=== PATIENT | male | born 1955 | race American Indian/Alaskan Native ===

== ENCOUNTER 2018-11-21 23:55 | Emergency (ER) | payer MEDICAID, OTHER ==
[2018-11-21] MEDS ORDERED: Sodium Chloride 0.9% 1,000 ML IV ONE (23:56)
[2018-11-21] MEDS ORDERED: 50% Dextrose in Water 50 ML Syringe IV ONE (23:56)
[2018-11-22] MEDS ORDERED: Dextrose 5%-0.45% NaCl 1,000 ML IV ONE (02:00)
[2018-11-22] MEDS ORDERED: Phenytoin 100 MG Cap.ER ONE (03:37)
[2018-11-22] MEDS ORDERED: Phenytoin 100 MG Cap.ER PO ONE (03:38)
[2018-11-22] MEDS ORDERED: Acetaminophen 325 MG Tab ONE (03:59)
[2018-11-22] MEDS ORDERED: Acetaminophen 325 MG Tab PO ONE (04:00)
[2018-11-22 11:46] LABS: ANION GAP 12.2; CHLORIDE,CL 104 mmol/L (101-111); SODIUM,NA 137 mmol/L (135-145)
== END 2018-11-22 03:50 ==
LOC: DL.ED 23:55
DX: G40.909 Epilepsy, unspecified, not intractable, without status epilepticus (principal); E11.649 Type 2 diabetes mellitus with hypoglycemia without coma; R89.2 Abnormal level of other drugs, medicaments and biological substances in specimens from other organs, systems and tissues; M54.5 Low back pain; I10 Essential (primary) hypertension; W00.0XXA Fall on same level due to ice and snow, initial encounter
CPT/HCPCS: 36415; 80053; 80185; 80305; 81001; 82962; 83735; 83880; 84484; 85025; 96361; 96374; 99285; G0480; A9270-GY; J7030; J7042; J7060

== ENCOUNTER 2018-11-25 17:12 | Emergency (ER) | payer MEDICAID, OTHER ==
[2018-11-25 17:32] VITALS: BP 163/94
[2018-11-25] MEDS: Sodium Chloride 0.9% 10 ML Syringe FLUSH PRN (17:51)
[2018-11-25 18:13] LABS: CHLORIDE,CL 102 mmol/L (101-111); SODIUM,NA 135 mmol/L (135-145)
--- NOTE | 2018-11-25 18:31 | EDM.PDOC ---
ED HPI GENERAL MEDICAL PROBLEM - General Chief Complaint: Skin Complaint Stated Complaint: RECHECK HAND Time Seen by Provider: 11/25/18 17:14 Source of Information: Reports: Patient History Limitations: Reports: No Limitations - History of Present Illness INITIAL COMMENTS - FREE TEXT/NARRATIVE: patient comes emergency Department today with complaints of an infection to his left hand. The patient a couple weeks ago was in [place] when he got some slivers in his hand. They became quite nfected. He required surgical interventionand washout of this area. He was sent home on antibiotics. He has had multiple recurrence of infection of his left hand since that time. He was seen at the [facility] clinic yesterday and was sent to the emergency department in [place] to see a hand surgeon from [facility] for admission and possible surgery. INstead of going to the ED the patient went to the clinic and when they didn't have an appointment for him he just left and went back home to [place]. Today he contacted the clinic at [facility] again and they just directed him to the ED. he comes to the emergency department because he was directed to due to the infection in his hand. He has no fever no chills. No weakness dizziness lightheadedness. No body aches. - Related Data Allergies Allergy/AdvReac Type Severity Reaction Status Date / Time No Known Allergies Allergy Verified 03/11/18 01:09 Home Meds: Home Meds Aspirin [Adult Low Dose Aspirin EC] 81 mg PO DAILY 10/01/13 [History] atorvaSTATin [Lipitor] 20 mg PO BEDTIME 10/01/13 [History] Nitroglycerin [Nitrostat] 0.4 mg SL ASDIRECTED 04/14/14 [History] Insulin Aspart [Novolog Flexpen] 7 unit SQ TID 01/05/16 [History] Insulin Detemir [Levemir Flextouch] 35 unit SQ BEDTIME 01/05/16 [History] Levofloxacin [Levaquin] 500 mg PO Q24H 01/05/16 [History] Labetalol [Normodyne] 200 mg PO TID #90 tablet 01/06/16 [Rx] Phenytoin 300 mg PO BID 30 Days cap.er 01/06/16 [Rx] Lisinopril 40 mg PO DAILY 01/14/16 [History] Pantoprazole Sodium 40 mg PO DAILY 01/14/16 [History] metFORMIN HCl [Metformin HCl] 500 mg PO DAILY 01/14/16 [History] Past Medical History HEENT History: Reports: None Cardiovascular History: Reports: CAD, High Cholesterol, Hypertension Other Cardiovascular History: patient poor historian. unknown type of cardiac history or why is on medications. states Nitro was given to him to control his seizures Other Respiratory History: patient denies history but has Albuterol inhaler on old med list and state that he still takes it once a day Gastrointestinal History: Reports: Other (See Below) Other Gastrointestinal History: chronic nausea Neurological History: Reports: Seizure Endocrine/Metabolic History: Reports: Diabetes, Type II Other Endocrine/Metabolic History: patient states is a diabetic but takes no medications for this. "they gave me the little jar of nitro" Dermatologic History: Reports: Cellulitis Other Dermatologic History: palm of left hand and cellulitis - Infectious Disease History Other Infectious Disease History: patient is a poor historian - Past Surgical History Cardiovascular Surgical History: Reports: Percutaneous Transluminal Angioplasty Social & Family History - Family History Family Medical History: Noncontributory - Tobacco Use Smoking Status *Q: Never Smoker - Caffeine Use Caffeine Use: Reports: Coffee, Tea - Living Situation & Occupation Living situation: Reports: Single Occupation: Disabled ED ROS GENERAL - Review of Systems Review Of Systems: ROS reveals no pertinent complaints other than HPI. ED EXAM, SKIN/RASH Exam: See Below Exam Limited By: No Limitations General Appearance: Alert, WD/WN, No Apparent Distress Extremities: No: Normal Inspection (nspection of the left hand there is a mild to moderate amount of erythema on the palmar surface f the webbing between the first and second finger that minimally extends past the palmar surface of thesecond metacarpal. The erythema extends distally on the palmar surface of the left index finger. At the MCP joint there is an area of the scab without any drainage. The distal phalange of the left index finger palmar surface there is also lateralscab approximately 2 cm in length without any discharge or drainage.) Course - Vital Signs Last Recorded V/S: Last Vital Signs Temp 36.9 C 11/25/18 17:14 Pulse 65 11/25/18 17:14 Resp 16 11/25/18 17:14 BP 163/94 H 11/25/18 17:14 Pulse Ox 96 11/25/18 17:14 - Orders/Labs/Meds Orders: Active Orders 24 hr Category Date Time Status Peripheral IV Care [RC] . DIRECTED Care 11/25/18 17:36 Active CULTURE BLOOD [BC] Stat Lab 11/25/18 17:44 Received CULTURE BLOOD [BC] Stat Lab 11/25/18 17:48 Received Blood Culture x2 Reflex Set [OM.PC] Stat Oth 11/25/18 17:34 Ordered Peripheral IV Insertion Adult [OM.PC] Stat Oth 11/25/18 17:36 Ordered Labs: Laboratory Tests 11/25/18 11/25/18 11/25/18 Range/Units 17:44 17:44 17:44 WBC 6.3 (5.0-10.0) 10^3/uL RBC 4.69 (4.6-6.2) 10^6/uL Hgb 13.5 L D (14.0-18.0) g/dL Hct 41.8 (40.0-54.0) % MCV 89.1 (80-100) fL MCH 28.8 (27.0-34.0) pg MCHC 32.3 L (33.0-35.0) g/dL Plt Count 251 (150-450) 10^3/uL Neut % (Auto) 43.3 (42.2-75.2) % Lymph % (Auto) 44.3 (20.5-50.1) % [place] % (Auto) 9.8 H (2-8) % Eos % (Auto) 2.4 (1.0-3.0) % Baso % (Auto) 0.2 (0.0-1.0) % Sodium 135 (135-145) mmol/L Potassium 4.0 (3.6-5.0) mmol/L Chloride 102 (101-111) mmol/L Carbon Dioxide 23.0 (21.0-31.0) mmol/L Anion Gap 14.0 BUN 17 (7-18) mg/dL Creatinine 0.8 (0.6-1.3) mg/dL Est Cr Clr Drug Dosing 92.63 mL/min Estimated GFR (MDRD) > 60 BUN/Creatinine Ratio 21.25 Glucose 169 H (74-105) mg/dL Lactic Acid 1.2 (0.5-2.2) mmol/L Calcium 8.2 L (8.4-10.2) mg/dl Total Bilirubin 0.4 (0.2-1.0) mg/dL AST 24 (10-42) IU/L ALT 20 (10-60) IU/L Alkaline Phosphatase 82 (42-121) IU/L C-Reactive Protein (0.0-1.3) mg/dL Total Protein 7.4 (6.7-8.2) g/dl Albumin 3.4 (3.2-5.5) g/dl Globulin 4.0 Albumin/Globulin Ratio 0.85 11/25/18 Range/Units 17:44 WBC (5.0-10.0) 10^3/uL RBC (4.6-6.2) 10^6/uL Hgb (14.0-18.0) g/dL Hct (40.0-54.0) % MCV (80-100) fL MCH (27.0-34.0) pg MCHC (33.0-35.0) g/dL Plt Count (150-450) 10^3/uL Neut % (Auto) (42.2-75.2) % Lymph % (Auto) (20.5-50.1) % [place] % (Auto) (2-8) % Eos % (Auto) (1.0-3.0) % Baso % (Auto) (0.0-1.0) % Sodium (135-145) mmol/L Potassium (3.6-5.0) mmol/L Chloride (101-111) mmol/L Carbon Dioxide (21.0-31.0) mmol/L Anion Gap BUN (7-18) mg/dL Creatinine (0.6-1.3) mg/dL Est Cr Clr Drug Dosing mL/min Estimated GFR (MDRD) BUN/Creatinine Ratio Glucose (74-105) mg/dL Lactic Acid (0.5-2.2) mmol/L Calcium (8.4-10.2) mg/dl Total Bilirubin (0.2-1.0) mg/dL AST (10-42) IU/L ALT (10-60) IU/L Alkaline Phosphatase (42-121) IU/L C-Reactive Protein 0.9 (0.0-1.3) mg/dL Total Protein (6.7-8.2) g/dl Albumin (3.2-5.5) g/dl Globulin Albumin/Globulin Ratio Meds: Medications Discontinued Medications Generic Name Dose Route Start Last Admin Trade Name Natali PRN Reason Stop Dose Admin Sodium Chloride 10 ml 11/25/18 17:36 11/25/18 17:51 Saline Flush FLUSH 10 ml ASDIRECTED PRN Administration Keep Vein Open - Re-Assessments/Exams Free Text/Narrative Re-Assessment/Exam: 11/25/18 21:50 I called and spoke with DR. Whitehead [facility]. HPI ER COURSE findings and concerns were relayed to her. She accepted the patient in transfer at this time. I clearly explained multiple times to the patient that he is to go from the ED her in [place] to the Emergency Department in [place] at [facility] and not to any other clinic or destination. He was understanding of this and his questions answered. Departure - Departure Time of Disposition: 17:55 Disposition: DC/Tfer to [facility] 02 Clinical Impression: Cellulitis Qualifiers: Site of cellulitis: extremity Site of cellulitis of extremity: upper extremity Laterality: left Qualified Code(s): L03.114 - Cellulitis of left upper limb - Discharge Information Referrals: PCP,None [Primary Care Provider] - Forms: ED Department Discharge Additional Instructions: As same as yesterday go to the ED at [facility] for further care and evaluation. - My Orders Last 24 Hours: My Active Orders 11/25/18 17:34 Blood Culture x2 Reflex Set [OM.PC] Stat 11/25/18 17:36 Peripheral IV Care [RC] . DIRECTED Peripheral IV Insertion Adult [OM.PC] Stat 11/25/18 17:44 CULTURE BLOOD [BC] Stat 11/25/18 17:48 CULTURE BLOOD [BC] Stat - Assessment/Plan Last 24 Hours: My Active Orders 11/25/18 17:34 Blood Culture x2 Reflex Set [OM.PC] Stat 11/25/18 17:36 Peripheral IV Care [RC] . DIRECTED Peripheral IV Insertion Adult [OM.PC] Stat 11/25/18 17:44 CULTURE BLOOD [BC] Stat 11/25/18 17:48 CULTURE BLOOD [BC] Stat Assessment:: Cellulitis of the left hand recurrent following fb removal ? retained products. Plan: As same as yesterday go to the ED at [facility] for further care and evaluation.
== END 2018-11-25 18:12 ==
LOC: DL.ED 17:12
DX: L03.114 Cellulitis of left upper limb (principal); E11.9 Type 2 diabetes mellitus without complications; I10 Essential (primary) hypertension; E78.00 Pure hypercholesterolemia, unspecified; Z79.4 Long term (current) use of insulin; Z79.899 Other long term (current) drug therapy; Z79.82 Long term (current) use of aspirin
CPT/HCPCS: 36415; 80053; 83605; 85025; 86140; 87040; 99284

== ENCOUNTER 2019-05-13 15:38 | Emergency (ER) | payer MEDICAID, OTHER ==
[2019-05-13 15:53] VITALS: BP 161/86
--- NOTE | 2019-05-13 16:00 | EDM.PDOC ---
ED HPI GENERAL MEDICAL PROBLEM - General Chief Complaint: Head Injury Stated Complaint: AMBULANCE Time Seen by Provider: 05/13/19 15:50 Source of Information: Reports: Patient History Limitations: Reports: No Limitations - History of Present Illness INITIAL COMMENTS - FREE TEXT/NARRATIVE: This 63 yo male patient reports to the ED due to a ground level fall yesterday. The patient reports he slipped and fell yesterday while at home. The patient was brought to the ED by [facility] with a C-collar in place. The patient reports pain in the back of his head. The patient also reports he started to have chest pain this morning at about 0900. The patient reports his chest pain has been intermittent throughout the day. The patient reports he feels a little confused. The patient denies any loss of consciousness before, during or after the fall. The patient states he has had similar symptoms in the past. The patient reports he took nitro 3 days ago for chest pain, but has not taken any today. Onset: Today (chest pain), Other (Head pain started yesteday after the fall) Location: Reports: Head, Chest Quality: Reports: Other Severity: Moderate Improves with: Reports: None Worsens with: Reports: None Context: Reports: Trauma Associated Symptoms: Reports: No Other Symptoms Left Head Pain Score (Numeric/FACES): 2 - Related Data Allergies Allergy/AdvReac Type Severity Reaction Status Date / Time No Known Allergies Allergy Verified 05/13/19 15:48 Home Meds: Home Meds Aspirin [Adult Low Dose Aspirin EC] 81 mg PO DAILY 10/01/13 [History] atorvaSTATin [Lipitor] 20 mg PO BEDTIME 10/01/13 [History] Nitroglycerin [Nitrostat] 0.4 mg SL ASDIRECTED 04/14/14 [History] Insulin Aspart [Novolog Flexpen] 7 unit SQ TID 01/05/16 [History] Insulin Detemir [Levemir Flextouch] 35 unit SQ BEDTIME 01/05/16 [History] Levofloxacin [Levaquin] 500 mg PO Q24H 01/05/16 [History] Labetalol [Normodyne] 200 mg PO TID #90 tablet 01/06/16 [Rx] Phenytoin 300 mg PO BID 30 Days cap.er 01/06/16 [Rx] Lisinopril 40 mg PO DAILY 01/14/16 [History] Pantoprazole Sodium 40 mg PO DAILY 01/14/16 [History] metFORMIN HCl [Metformin HCl] 500 mg PO DAILY 01/14/16 [History] Past Medical History HEENT History: Reports: None Cardiovascular History: Reports: CAD, High Cholesterol, Hypertension Other Cardiovascular History: patient poor historian. unknown type of cardiac history or why is on medications. states Nitro was given to him to control his seizures Other Respiratory History: patient denies history but has Albuterol inhaler on old med list and state that he still takes it once a day Gastrointestinal History: Reports: Other (See Below) Other Gastrointestinal History: chronic nausea Neurological History: Reports: Seizure Endocrine/Metabolic History: Reports: Diabetes, Type II Other Endocrine/Metabolic History: patient states is a diabetic but takes no medications for this. "they gave me the little jar of nitro" Dermatologic History: Reports: Cellulitis Other Dermatologic History: palm of left hand and cellulitis - Infectious Disease History Other Infectious Disease History: patient is a poor historian - Past Surgical History Cardiovascular Surgical History: Reports: Percutaneous Transluminal Angioplasty Social & Family History - Family History Family Medical History: Noncontributory - Tobacco Use Smoking Status *Q: Never Smoker Second Hand Smoke Exposure: No - Caffeine Use Caffeine Use: Reports: None - Recreational Drug Use Recreational Drug Use: No - Living Situation & Occupation Living situation: Reports: Single Occupation: Disabled ED ROS GENERAL - Review of Systems Review Of Systems: ROS reveals no pertinent complaints other than HPI. ED EXAM, HEAD INJURY - Physical Exam Exam: See Below Exam Limited By: No Limitations General Appearance: Alert, WD/WN, Moderate Distress Head: Scalp Hematoma Nexus Criteria: Posterior, Midline Cervical Tenderness, Evidence of Intoxication , Altered Level of Consciousness, Focal Neurological Deficit, Painful Distraction Injuries Eyes: Bilateral Eye: EOMI, Normal Inspection, PERRL Ears: Normal External Exam, Normal Canal, Hearing Grossly Normal, Normal TMs Nose: Normal Inspection, Normal Mucousa, No Blood Throat/Mouth: Normal Inspection, Normal Lips, Normal Teeth, Normal Gums, Normal Oropharynx, Normal Voice, No Airway Compromise Neck: Non-Tender, Full Range of Motion, Normal Alignment, Normal Inspection Respiratory: No Respiratory Distress, Lungs Clear, Normal Breath Sounds, No Accessory Muscle Use, Chest Non-Tender Cardiovascular: Normal Peripheral Pulses, Regular Rate, Rhythm, No Edema, No Gallop, No JVD, No Murmur, No Rub GI/Abdominal Exam: Normal Bowel Sounds, Soft, Non-Tender, No Organomegaly, No Distention, No Abnormal Bruit, No Mass (Male) Exam: Deferred Rectal (Males) Exam: Deferred Back Exam: Full Range of Motion, Normal Inspection, NT Extremities: Normal Inspection, Normal Range of Motion, Non-Tender, No Pedal Edema, Normal 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 As Tested, No Motor/Sensory Deficits, Alert, Normal Mood/Affect, Oriented x 3 Skin: Normal Color, Warm/Dry - Lidia Coma Score Best Eye Response (Lidia): (4) Open Spontaneously Best Verbal Response (Lidia): (5) Oriented Best Motor Response (Lidia): (6) Obeys Commands Lidia Total: 15 Course - Vital Signs Last Recorded V/S: Last Vital Signs Temp 36.5 C 05/13/19 15:33 Pulse 80 05/13/19 15:33 Resp 14 05/13/19 15:51 BP 161/86 H 05/13/19 15:51 Pulse Ox 99 05/13/19 15:51 - Orders/Labs/Meds Orders: Active Orders 24 hr Category Date Time Status EKG Documentation Completion [RC] URGENT Care 05/13/19 15:38 Active Labs: Laboratory Tests 05/13/19 05/13/19 Range/Units 15:38 15:38 WBC 6.8 (5.0-10.0) 10^3/uL RBC 4.58 L (4.6-6.2) 10^6/uL Hgb 13.3 L (14.0-18.0) g/dL Hct 40.7 (40.0-54.0) % MCV 88.9 (80-100) fL MCH 29.0 (27.0-34.0) pg MCHC 32.7 L (33.0-35.0) g/dL Plt Count 207 (150-450) 10^3/uL Neut % (Auto) 58.2 (42.2-75.2) % Lymph % (Auto) 32.2 (20.5-50.1) % [place] % (Auto) 8.3 H (2-8) % Eos % (Auto) 1.2 (1.0-3.0) % Baso % (Auto) 0.1 (0.0-1.0) % Sodium 136 (135-145) mmol/L Potassium 4.1 (3.6-5.0) mmol/L Chloride 100 L (101-111) mmol/L Carbon Dioxide 25.0 (21.0-31.0) mmol/L Anion Gap 15.1 BUN 20 H (7-18) mg/dL Creatinine 0.9 (0.6-1.3) mg/dL Est Cr Clr Drug Dosing TNP Estimated GFR (MDRD) > 60 BUN/Creatinine Ratio 22.22 Glucose 286 H (74-105) mg/dL Calcium 8.7 (8.4-10.2) mg/dl Total Bilirubin 0.5 (0.2-1.0) mg/dL AST 26 (10-42) IU/L ALT 19 (10-60) IU/L Alkaline Phosphatase 75 (42-121) IU/L Troponin I 0.05 H* (0.00-0.02) ng/ml Total Protein 7.3 (6.7-8.2) g/dl Albumin 3.4 (3.2-5.5) g/dl Globulin 3.9 Albumin/Globulin Ratio 0.87 Meds: Medications Discontinued Medications Generic Name Dose Route Start Last Admin Trade Name Freq PRN Reason Stop Dose Admin Aspirin 324 mg 05/13/19 16:51 05/13/19 16:58 Aspirin PO 05/13/19 16:52 324 mg ONETIME ONE Administration Departure - Departure Time of Disposition: 17:54 Disposition: DC/Tfer to Acute Hospital 02 Condition: Fair Clinical Impression: NSTEMI (non-ST elevated myocardial infarction) Head contusion Qualifiers: Encounter type: initial encounter Contusion of head detail: scalp Qualified Code(s): S00.03XA - Contusion of scalp, initial encounter - Discharge Information *PRESCRIPTION DRUG MONITORING PROGRAM REVIEWED*: Not Applicable *COPY OF PRESCRIPTION DRUG MONITORING REPORT IN PATIENT CHAS: Not Applicable Forms: Interfacility Transfer EMTALA Care Plan Goals: Discussed the history, examination, lab, EKG, CT and x-ray results with Dr. Christianson (ED [facility] in [place]). Dr. Christianson accepted the patient for continued evaluation and management. The patient will be transported by [facility]. - My Orders Last 24 Hours: My Active Orders 05/13/19 15:38 EKG Documentation Completion [RC] URGENT - Assessment/Plan Last 24 Hours: My Active Orders 05/13/19 15:38 EKG Documentation Completion [RC] URGENT
[2019-05-13 16:04] LABS: ANION GAP 15.1; CHLORIDE,CL 100 mmol/L (101-111); SODIUM,NA 136 mmol/L (135-145)
--- NOTE | 2019-05-13 16:34 | CT ---
Clinical history: 63-year-old male injured in ground-level fall. TECHNIQUE: Volume acquisition of data emergency unenhanced CT scan of the cervical spine obtained with patient lying supine on the Siemens multislice scanner [employer], [place]. All data archived in the PACS system for storage, reformatting axial/sagittal/coronal planes and study. Interpretation: 1. No sign of basal skull fracture. Symmetric clear pneumatization of the mastoid sinuses. 2. Dense reactive atlantoaxial sclerosis and signs of chronic lower cervical (C6-7) disc disease. Severe disc disease T1-2. 3. Homogeneous normal bone mineral density and normal height/alignment of the 7 cervical vertebra. 4. No prevertebral soft tissue swelling, signs of acute cervical fracture, spondylolisthesis or jumped locked facet. 5. No foreign bodies. 6. No cervical rib anomalies. Medial clavicles unremarkable. Lung apices clear. CONCLUSION: Lower cervical and upper thoracic disc disease with hypertrophic arthritic changes. No fractures cervical spine.
--- NOTE | 2019-05-13 16:36 | CR ---
Clinical history: 63-year-old obese male injured in ground-level fall. Chest pain. Interpretation: Upright AP portable chest unremarkable and notably unchanged in the interval since 12 Feb 2016 comparison. Chronic enlarged cardiac silhouette without new signs of alveolar edema or dependent effusion. (External ekg monitor tech leads) No lung contusion, pleural effusion, atelectasis or pneumothorax. No new lung mass or hilar lymphadenopathy.
--- NOTE | 2019-05-13 16:42 | CT ---
Clinical history: 63-year-old male injured in ground-level fall (seizure disorder). Scan technique: Volume acquisition of data emergency unenhanced CT scan of the head and brain obtained with patient lying supine on the Siemens multi slice scanner [place], [place]. All data archived in the PACS system for storage, reformatting axial/sagittal/coronal planes and study (bone/brain windows). Comparison exam 22 November 2017. Interpretation: 1. Hyperostosis frontalis interna. Uniformly thick bony calvarium without sign of skull fracture, underlying brain contusion or extracerebral/intracranial epidural or subdural hematoma. Extracranial scalp contusion posterior occipital convexity on the left. 2. No new signs of supratentorial or posterior fossa mass lesion when compared directly to previous images CT scan of the head, November 2017. 3. Mild atrophy. No pathologic calcifications. Symmetric normal-appearing ventricular system. No hydrocephalus. 4. No new focal areas of ischemic infarct or signs of encephalomalacia. 5. No sign of acute intracerebral, intraventricular or subarachnoid bleed. CONCLUSION: No new evidence skull fracture or closed head trauma. Extracranial scalp contusion.
[2019-05-13] MEDS ORDERED: Aspirin 81 MG Tab.Chew PO ONE (16:51)
== END 2019-05-13 18:00 ==
LOC: DL.ED 15:38
DX: S00.03XA Contusion of scalp, initial encounter (principal); I21.4 Non-ST elevation (NSTEMI) myocardial infarction; I10 Essential (primary) hypertension; E11.9 Type 2 diabetes mellitus without complications; E78.00 Pure hypercholesterolemia, unspecified; Z79.82 Long term (current) use of aspirin; Z79.4 Long term (current) use of insulin; Z79.899 Other long term (current) drug therapy; W01.0XXA Fall on same level from slipping, tripping and stumbling without subsequent striking against object, initial encounter
CPT/HCPCS: 36415; 70450; 71045; 72125; 80053; 84484; 85025; 93005; 99285; A9270

== ENCOUNTER 2019-05-18 09:32 | Inpatient (IN) | payer MEDICAID, OTHER ==
[2019-05-18] MEDS ORDERED: Promethazine 25 MG/ML SDV IM PRN (15:55)
[2019-05-18] MEDS ORDERED: Ondansetron 4 MG/2 ML SDV IVPUSH PRN (15:55)
[2019-05-18] MEDS ORDERED: Ibuprofen 600 MG Tab PO PRN (15:55)
[2019-05-18] MEDS ORDERED: Ondansetron 4 MG Tab.DIS PO PRN (15:55)
[2019-05-18] MEDS ORDERED: 50% Dextrose in Water 50 ML Syringe IVPUSH PRN (15:55)
[2019-05-18] MEDS ORDERED: Promethazine 25 MG Tab PO PRN (15:55)
[2019-05-18] MEDS ORDERED: Glucagon,Human Recombinant 1 MG Vial IM PRN (15:55)
[2019-05-18] MEDS ORDERED: Acetaminophen 325 MG Tab PO PRN (15:55)
[2019-05-18] MEDS ORDERED: Bisacodyl 5 MG Tab PO PRN (16:00)
[2019-05-18] MEDS ORDERED: Docusate Sodium 100 MG Cap PO PRN (16:00)
[2019-05-18] MEDS ORDERED: Magnesium Hydroxide 400 MG/5 ML Susp 30 ML Cup PO PRN (16:00)
[2019-05-18] MEDS ORDERED: Polyethylene Glycol 3350 Powder 17 GM Packet PO PRN (16:00)
[2019-05-18] MEDS ORDERED: Nitroglycerin 0.4 MG Tab.SL SL PRN (16:03)
[2019-05-18] MEDS ORDERED: Albuterol 6.7 GM Inhaler INH PRN (16:03)
--- NOTE | 2019-05-18 16:11 | PCM.HP ---
H&P History of Present Illness - General Date of Service: 05/18/19 Admit Problem/Dx: Admission Diagnosis/Problem Admission Diagnosis/Problem Debility Source of Information: Patient, Old Records History Limitations: Reports: No Limitations - History of Present Illness Initial Comments - Free Text/Narative: Mr. Diaz is a 63 y.o male with medical history significant for seizure disorder who used to be on dilantin until recently, DM II, CAD, HTN, HLP, morbid obesity, and non-adherence to medical therapy who was admitted to [facility] for Dilantin toxicity, DIANA, and encephalopathy after he presented with fall. Cardiology was consulted and was deemed not to have ACS. Neurology was consulted and dilantin was discontinued and patient was started on Keppra. His kidney function improved with IVF. He was discharged to Swing bed and is being admitted for such for continued PT/OT and intermediate for debility. Today, patient denies any acute symptoms except weakness. States that he thinks it is due to laying down for long hours during hospitalization. He denies f/c, chest pain, shortness of breath, n/v/d/c, dysuria, or any acute symptoms. He denies tobacco, alcohol, or illicit drug use. - Related Data Allergies/Adverse Reactions: Allergies Allergy/AdvReac Type Severity Reaction Status Date / Time No Known Allergies Allergy Verified 05/18/19 10:22 Home Medications: Home Meds Aspirin [Adult Low Dose Aspirin EC] 81 mg PO DAILY 10/01/13 [History] Nitroglycerin [Nitrostat] 0.4 mg SL .[id number] PRN 04/14/14 [History] metFORMIN HCl [Metformin HCl] 500 mg PO WITHBREAKFAST 01/14/16 [History] Acetaminophen [Acetaminophen Extra Strength] 500 mg PO Q6H PRN 05/18/19 [History ] Albuterol [Proventil HFA] 2 puff INH Q6H PRN 05/18/19 [History] Lisinopril [Zestril] 40 mg PO DAILY 05/18/19 [History] Loratadine 10 mg PO DAILY 05/18/19 [History] Metoprolol Tartrate [Lopressor] 25 mg PO BID 05/18/19 [History] amLODIPine Besylate [Norvasc] 10 mg PO DAILY 05/18/19 [History] hydroCHLOROthiazide [Hydrochlorothiazide] 25 mg PO DAILY 05/18/19 [History] levETIRAcetam [Keppra] 1,000 mg PO BID 05/18/19 [History] Past Medical History HEENT History: Reports: None Cardiovascular History: Reports: CAD, High Cholesterol, Hypertension Other Cardiovascular History: patient poor historian. unknown type of cardiac history or why is on medications. states Nitro was given to him to control his seizures Other Respiratory History: patient denies history but has Albuterol inhaler on old med list and state that he still takes it once a day Gastrointestinal History: Reports: Other (See Below) Other Gastrointestinal History: chronic nausea Genitourinary History: Reports: None Musculoskeletal History: Reports: None Neurological History: Reports: Seizure Psychiatric History: Reports: None Endocrine/Metabolic History: Reports: Diabetes, Type II Other Endocrine/Metabolic History: patient states is a diabetic but takes no medications for this. "they gave me the little jar of nitro" Hematologic History: Reports: None Immunologic History: Reports: None Oncologic (Cancer) History: Reports: None Dermatologic History: Reports: Cellulitis Other Dermatologic History: palm of left hand and cellulitis - Infectious Disease History Infectious Disease History: Reports: Chicken Pox Other Infectious Disease History: patient is a poor historian - Past Surgical History Head Surgeries/Procedures: Reports: None Cardiovascular Surgical History: Reports: Percutaneous Transluminal Angioplasty Social & Family History - Family History Family Medical History: Noncontributory - Tobacco Use Smoking Status *Q: Never Smoker Second Hand Smoke Exposure: No - Caffeine Use Caffeine Use: Reports: Soda - Recreational Drug Use Recreational Drug Use: No - Living Situation & Occupation Living situation: Reports: Single Occupation: Disabled H&P Review of Systems - Review of Systems: Review Of Systems: ROS reveals no pertinent complaints other than HPI. Exam - Exam Exam: See Below - Vital Signs Weight: 311 lb 3.2 oz - Exam Physical Exam Comments:: General: Alert and oriented to place, time and person Head: atraumatic and normocephalic. Eyes: PERRLA, EOMI, anicteric, Ear, Nose and Throat: No gross abnormality found Neck: Supple Respiratory/Chest: CTAB, no wheezes, crackles, rales, or rhonchi; Good air entry bilaterally. No increased work of breathing CVS: RRR, no murmur, rub, or gallop, peripheral pulses palpable. Gastrointestinal/Abd: Soft, non-distended, non-tender. Normal bowel sounds. Abdominal adiposity Skin: No acute rashes noted. Neuro: Grossly non-focal. No cranial nerve abnormality. Moves all extremities. Psych: Alert and oriented to place time and person. No hallucinations or delusions noted. Musculoskeletal: No abnormality noted. Ext: No edema, no ulcers, no tenderness, no size differences, - Problem List (1) Debility SNOMED Code(s): 74535426 ICD Code: R53.81 - OTHER MALAISE Status: Acute Current Visit: Yes (2) Hyperlipidemia SNOMED Code(s): 37828222 ICD Code: E78.5 - HYPERLIPIDEMIA, UNSPECIFIED Status: Acute Current Visit : Yes (3) Hypertension SNOMED Code(s): 66598388 ICD Code: I10 - ESSENTIAL (PRIMARY) HYPERTENSION Status: Acute Current Visit: Yes (4) Diabetes SNOMED Code(s): 49428924 ICD Code: E11.9 - TYPE 2 DIABETES MELLITUS WITHOUT COMPLICATIONS Status: Acute Current Visit: No Qualifiers: Diabetes mellitus type: type 2 Diabetes mellitus complication status: without complication Qualified Code(s): E11.9 - Type 2 diabetes mellitus without complications (5) Reactive airways dysfunction syndrome SNOMED Code(s): 287312449 ICD Code: J45.909 - UNSPECIFIED ASTHMA, UNCOMPLICATED Status: Acute Current Visit: No (6) Seizure disorder SNOMED Code(s): 398157926 ICD Code: G40.909 - EPILEPSY, UNSP, NOT INTRACTABLE, WITHOUT STATUS EPILEPTICUS Status: Acute Current Visit: No Problem List Initiated/Reviewed/Updated: Yes Orders Last 24hrs: Active Orders 24 hr Category Date Time Status Patient Status [ADT] Routine ADT 05/18/19 15:56 Ordered Diabetes Education [RC] Click to Edit Care 05/18/19 15:56 Ordered Intake and Output [RC] QSHIFT Care 05/18/19 15:57 Ordered Notify Provider [RC] PRN Care 05/18/19 15:56 Ordered Oxygen Therapy [RC] PRN Care 05/18/19 15:56 Ordered Up With Assistance [RC] ASDIRECTED Care 05/18/19 15:55 Ordered VTE/DVT Education [RC] PER UNIT ROUTINE Care 05/18/19 15:56 Ordered Vital Signs [RC] Q4H Care 05/18/19 15:56 Ordered Consult to Junior Staff Accountant [CONS] Routine Cons 05/18/19 15:56 Ordered Consistent Carbohydrate Diet [DIET] Diet 05/18/19 Dinner Ordered CBC WITH AUTO DIFF [HEME] AM Lab 05/19/19 05:11 Ordered COMPREHENSIVE METABOLIC PN,CMP [CHEM] AM Lab 05/19/19 05:11 Ordered MAGNESIUM [CHEM] AM Lab 05/19/19 05:11 Ordered PHOSPHORUS [CHEM] AM Lab 05/19/19 05:11 Ordered Acetaminophen [Tylenol] Med 05/18/19 15:55 Ordered 650 mg PO Q4H PRN Albuterol [Proventil HFA] Med 05/18/19 16:03 Ordered 2 puff INH Q6H PRN Aspirin [Halfprin] Med 05/19/19 09:00 Ordered 81 mg PO DAILY Bisacodyl [Dulcolax] Med 05/18/19 16:00 Ordered 5 mg PO DAILY PRN Dextrose 50% in Water Med 05/18/19 15:55 Ordered 25 ml IVPUSH ASDIRECTED PRN Docusate Sodium [Colace] Med 05/18/19 16:00 Ordered 100 mg PO BID PRN Docusate Sodium/Sennosides [Senna Plus] Med 05/18/19 16:00 Ordered 1 tab PO BEDTIME PRN Enoxaparin [Lovenox] Med 05/19/19 09:00 Ordered 40 mg SUBCUT DAILY Glucagon,Human Recombinant [GlucaGen] Med 05/18/19 15:55 Ordered 1 mg IM ONETIME PRN Ibuprofen [Motrin] Med 05/18/19 15:55 Ordered 600 mg PO Q6H PRN Insulin Lispro [HumaLOG] Med 05/18/19 21:00 Ordered See Protocol SUBCUT ACBED Lisinopril [Zestril] Med 05/19/19 09:00 Ordered 40 mg PO DAILY Loratadine [Claritin] Med 05/19/19 09:00 Ordered 10 mg PO DAILY Magnesium Hydroxide [Milk of Magnesia] Med 05/18/19 16:00 Ordered 30 ml PO Q12H PRN Metoprolol Tartrate [Lopressor] Med 05/18/19 21:00 Ordered 25 mg PO BID Nitroglycerin [Nitrostat] Med 05/18/19 16:03 Ordered 0.4 mg SL .[id number] PRN Ondansetron [Zofran ODT] Med 05/18/19 15:55 Ordered 4 mg PO Q6H PRN Ondansetron [Zofran] Med 05/18/19 15:55 Ordered 4 mg IVPUSH Q6H PRN Polyethylene Glycol 3350 [MiraLAX] Med 05/18/19 16:00 Ordered 17 gm PO DAILY PRN Promethazine [Phenergan] Med 05/18/19 15:55 Ordered 25 mg PO Q6H PRN Promethazine [Phenergan] Med 05/18/19 15:55 Ordered 6.25 mg IM Q6H PRN amLODIPine Besylate [Norvasc] Med 05/19/19 09:00 Ordered 10 mg PO DAILY hydroCHLOROthiazide Med 05/19/19 09:00 Ordered 25 mg PO DAILY levETIRAcetam [Keppra] Med 05/18/19 21:00 Ordered 1,000 mg PO BID Resuscitation Status Routine Resus Stat 05/18/19 15:55 Ordered Assessment/Plan Comment:: #Generalized debility: likely due to decreased mobility from acute hospitalization. Recent history of fall. - PT/OT - Ambulate with assistance #DM II: - SSI with hypoglycemia protocol #Seizure disorder: - Seizure precautions - Continue Keppra #CAD #HTN #HLP - Continue home medications - Monitor blood pressure #Morbid obesity: - Weight loss counseling #Non-adherence to medication therapy: - Counseling to be provided. DVT PPx: Lovenox GI PPx: Carb consistent diet Code Status: Full Code
[2019-05-18] MEDS: levETIRAcetam 500 MG Tab PO SCH (20:20)
[2019-05-18] MEDS: Metoprolol Tartrate 25 MG Tab PO SCH (20:20)
[2019-05-18] MEDS: Insulin Lispro 100 Units/ML 3 ML Vial SUBCUT SCH (21:43)
[2019-05-19 07:25] LABS: ANION GAP 14.6; CHLORIDE,CL 103 mmol/L (101-111); SODIUM,NA 136 mmol/L (135-145)
[2019-05-19] MEDS: Insulin Lispro 100 Units/ML 3 ML Vial SUBCUT SCH ×4 (08:10→21:14)
[2019-05-19] MEDS: levETIRAcetam 500 MG Tab PO SCH ×2 (08:51→20:49)
[2019-05-19] MEDS: amLODIPine 5 MG Tab PO SCH (08:51)
[2019-05-19] MEDS: Hydrochlorothiazide 25 MG Tab PO SCH (08:51)
[2019-05-19] MEDS: Lisinopril 20 MG Tab PO SCH (08:52)
[2019-05-19] MEDS: Metoprolol Tartrate 25 MG Tab PO SCH ×2 (08:52→20:50)
[2019-05-19] MEDS: Loratadine 10 MG Tab PO SCH (08:52)
[2019-05-19] MEDS: Aspirin 81 MG Tab.EC PO SCH (08:52)
[2019-05-19] MEDS: Enoxaparin 40 MG/0.4 ML Syringe SUBCUT SCH (08:53)
[2019-05-20] MEDS: Insulin Lispro 100 Units/ML 3 ML Vial SUBCUT SCH ×4 (09:19→21:07)
[2019-05-20] MEDS: Aspirin 81 MG Tab.EC PO SCH (09:20)
[2019-05-20] MEDS: Loratadine 10 MG Tab PO SCH (09:20)
[2019-05-20] MEDS: Lisinopril 20 MG Tab PO SCH (09:21)
[2019-05-20] MEDS: amLODIPine 5 MG Tab PO SCH (09:21)
[2019-05-20] MEDS: Hydrochlorothiazide 25 MG Tab PO SCH (09:21)
[2019-05-20] MEDS: levETIRAcetam 500 MG Tab PO SCH ×2 (09:21→21:08)
[2019-05-20] MEDS: Enoxaparin 40 MG/0.4 ML Syringe SUBCUT SCH (09:22)
[2019-05-20] MEDS: Metoprolol Tartrate 25 MG Tab PO SCH ×2 (09:22→21:07)
[2019-05-21] MEDS: Enoxaparin 40 MG/0.4 ML Syringe SUBCUT SCH (09:12)
[2019-05-21] MEDS: Insulin Lispro 100 Units/ML 3 ML Vial SUBCUT SCH ×2 (09:13→12:23)
[2019-05-21] MEDS: levETIRAcetam 500 MG Tab PO SCH (09:16)
[2019-05-21] MEDS: Lisinopril 20 MG Tab PO SCH (09:17)
[2019-05-21] MEDS: Hydrochlorothiazide 25 MG Tab PO SCH (09:24)
[2019-05-21] MEDS: Loratadine 10 MG Tab PO SCH (09:25)
[2019-05-21] MEDS: amLODIPine 5 MG Tab PO SCH (09:25)
[2019-05-21] MEDS: Aspirin 81 MG Tab.EC PO SCH (09:26)
[2019-05-21] MEDS: Metoprolol Tartrate 25 MG Tab PO SCH (09:27)
[2019-05-21 09:32] VITALS: BP 112/61
--- NOTE | 2019-05-21 11:14 | PCM.DCSUM1 ---
Discharge Summary - Hospital Course Free Text/Narrative:: Mr. Diaz is a 63 y.o male with medical history significant for seizure disorder who used to be on dilantin until recently, DM II, CAD, HTN, HLP, morbid obesity, and non-adherence to medical therapy who was admitted to [facility] for Dilantin toxicity, DIANA, and encephalopathy after he presented with fall. Cardiology was consulted and was deemed not to have ACS. Neurology was consulted and dilantin was discontinued and patient was started on Keppra. His kidney function improved with IVF. He was discharged to Swing bed and was admitted for such for continued PT/OT and retirement for debility. Patient indicates that he feels better. Has been ambulatory without risk of fall. He will be discharged home.. #Generalized debility: likely due to decreased mobility from acute hospitalization. Recent history of fall. #DM II: Restart patient on metoprolol #Seizure disorder: - Seizure precautions - Continue Keppra #CAD #HTN #HLP - Continue home medications #Morbid obesity: - Weight loss counseling #Non-adherence to medication therapy: - Counseling to be provided. - Discharge Data Discharge Date: 05/21/19 Discharge Disposition: Home, Self-Care 01 Condition: Good - Patient Summary/Data Consults: Consultations 05/18/19 15:56 Consult to Alterations Sewer [CONS] Routine 05/18/19 16:14 OT Evaluation and Treatment [CONS] Routine PT Evaluation and Treatment [CONS] Routine - Patient Instructions Diet: Diabetic Diet Activity: As Tolerated Other/Special Instructions: F/up with PMD in one week - Discharge Plan Home Medications: Home Meds Aspirin [Adult Low Dose Aspirin EC] 81 mg PO DAILY 10/01/13 [History] Nitroglycerin [Nitrostat] 0.4 mg SL .[id number] PRN 04/14/14 [History] metFORMIN HCl [Metformin HCl] 500 mg PO WITHBREAKFAST 01/14/16 [History] Acetaminophen [Acetaminophen Extra Strength] 500 mg PO Q6H PRN 05/18/19 [History ] Albuterol [Proventil HFA] 2 puff INH Q6H PRN 05/18/19 [History] Lisinopril [Zestril] 40 mg PO DAILY 05/18/19 [History] Loratadine 10 mg PO DAILY 05/18/19 [History] Metoprolol Tartrate [Lopressor] 25 mg PO BID 05/18/19 [History] amLODIPine Besylate [Norvasc] 10 mg PO DAILY 05/18/19 [History] hydroCHLOROthiazide [Hydrochlorothiazide] 25 mg PO DAILY 05/18/19 [History] levETIRAcetam [Keppra] 1,000 mg PO BID 05/18/19 [History] Oxygen Therapy Mode: Room Air - Discharge Summary/Plan Comment DC Time >30 min.: No - Review of Systems General: Reports: No Symptoms Pulmonary: Reports: No Symptoms Cardiovascular: Reports: No Symptoms Gastrointestinal: Reports: No Symptoms - Patient Data Vitals - Most Recent: Last Vital Signs Temp 37.1 C 05/21/19 08:00 Pulse 87 05/21/19 10:00 Resp 20 05/21/19 08:00 BP 112/61 05/21/19 10:00 Pulse Ox 95 05/21/19 08:00 Weight - Most Recent: 139.434 kg I&O - Last 24 hours: Intake & Output 05/20/19 05/21/19 05/21/19 22:59 06:59 14:59 Intake Total 1595 400 440 Balance 1595 400 440 Lab Results - Last 24 hrs: Laboratory Results - last 24 hr 05/20/19 05/20/19 05/20/19 Range/Units 11:35 17:06 20:25 POC Glucose 219 H 183 H 201 H (70-105) mg/dl 05/21/19 Range/Units 08:02 POC Glucose 190 H (70-105) mg/dl Med Orders - Current: Current Medications Acetaminophen (Tylenol) 650 mg PO Q4H PRN PRN Reason: Pain Albuterol (Proventil Hfa) 0 gm INH Q6H PRN PRN Reason: Shortness of Breath Amlodipine Besylate (Norvasc) 10 mg PO DAILY [facility] Last Admin: 05/21/19 09:25 Dose: 10 mg Aspirin (Halfprin) 81 mg PO DAILY [facility] Last Admin: 05/21/19 09:26 Dose: 81 mg Bisacodyl (Dulcolax) 5 mg PO DAILY PRN PRN Reason: Constipation Dextrose/Water (Dextrose 50% In Water) 25 ml IVPUSH ASDIRECTED PRN PRN Reason: Hypoglycemia Docusate Sodium (Colace) 100 mg PO BID PRN PRN Reason: Constipation Enoxaparin Sodium (Lovenox) 40 mg SUBCUT DAILY [facility] Last Admin: 05/21/19 09:12 Dose: 40 mg Glucagon (Glucagen) 1 mg IM ONETIME PRN PRN Reason: Hypoglycemia Hydrochlorothiazide (Hydrochlorothiazide) 25 mg PO DAILY [facility] Last Admin: 05/21/19 09:24 Dose: 25 mg Ibuprofen (Motrin) 600 mg PO Q6H PRN PRN Reason: Pain (mild 1-3) Insulin Human Lispro (Humalog) 0 unit SUBCUT ACBED [facility]; Protocol Last Admin: 05/21/19 09:13 Dose: 2 units Levetiracetam (Keppra) 1,000 mg PO BID [facility] Last Admin: 05/21/19 09:16 Dose: 1,000 mg Lisinopril (Prinivil) 40 mg PO DAILY [facility] Last Admin: 05/21/19 09:17 Dose: 40 mg Loratadine (Claritin) 10 mg PO DAILY [facility] Last Admin: 05/21/19 09:25 Dose: 10 mg Magnesium Hydroxide (Milk Of Magnesia) 30 ml PO Q12H PRN PRN Reason: Constipation Metoprolol Tartrate (Lopressor) 25 mg PO BID [facility] Last Admin: 05/21/19 09:27 Dose: 25 mg Nitroglycerin (Nitrostat) 0.4 mg SL ASDIRECTED PRN PRN Reason: Chest Pain Ondansetron HCl (Zofran Odt) 4 mg PO Q6H PRN PRN Reason: nausea, able to take PO Ondansetron HCl (Zofran) 4 mg IVPUSH Q6H PRN PRN Reason: Nausea/Vomiting Polyethylene Glycol (Miralax) 17 gm PO DAILY PRN PRN Reason: Constipation Promethazine HCl (Phenergan) 25 mg PO Q6H PRN PRN Reason: nausea, able to take PO Promethazine HCl (Phenergan) 6.25 mg IM Q6H PRN PRN Reason: Nausea/Vomiting Senna/Docusate Sodium (Senna Plus) 1 tab PO BEDTIME PRN PRN Reason: Constipation - Exam General: Reports: Alert, Oriented, Cooperative HEENT: Reports: Pupils Equal, Pupils Reactive, EOMI, Mucous Membr. Moist/[place] Neck: Reports: Supple Lungs: Reports: Clear to Auscultation, Normal Respiratory Effort
== END 2019-05-21 15:44 | disposition home or self-care (01) | DRG 948 ==
LOC: UNDOADMIN 15:14 → DL.MS 15:14
PROVIDERS: ADMIT Internal Medicine; ATTEND Hospitalist
DX: R53.81 Other malaise (principal); Z68.41 Body mass index [BMI] 40.0-44.9, adult; E11.9 Type 2 diabetes mellitus without complications; I25.10 Atherosclerotic heart disease of native coronary artery without angina pectoris; I10 Essential (primary) hypertension; E78.00 Pure hypercholesterolemia, unspecified; J45.909 Unspecified asthma, uncomplicated; G40.909 Epilepsy, unspecified, not intractable, without status epilepticus; E66.01 Morbid (severe) obesity due to excess calories; Z91.14 Patient's other noncompliance with medication regimen; Z79.82 Long term (current) use of aspirin; Z79.84 Long term (current) use of oral hypoglycemic drugs; Z79.899 Other long term (current) drug therapy; Z91.81 History of falling
CPT/HCPCS: 36415; 80053; 82962; 83735; 84100; 85025; 97110-GO; 97116-GP; 97161-GP; 97165-GO; 97530-GO; A9270-GY; J1650; J1815

== ENCOUNTER 2021-04-26 02:38 | Emergency (ER) | payer MEDICAID ==
[2021-04-26 02:57] VITALS: BP 169/97; PULSE 72
[2021-04-26] MEDS ORDERED: Ondansetron 4 MG/2 ML SDV IVPUSH ONE (03:03)
--- NOTE | 2021-04-26 03:08 | EDM.PDOC ---
<Art Leyva Kel - Last Filed: 04/26/21 06:47> ED HPI GENERAL MEDICAL PROBLEM - General Chief Complaint: Gastrointestinal Problem Stated Complaint: WAS GIVEN A VACCINE AND POSSIBLE REACTION Time Seen by Provider: 04/26/21 02:55 Source of Information: Reports: Patient, RN History Limitations: Reports: No Limitations - History of Present Illness INITIAL COMMENTS - FREE TEXT/NARRATIVE: ED with c/o of constipation, feeling weak and dizzy. Reports had vaccine today but nont COVID as already had two. Possible was shingles as sounded more familiar than pneumonia vaccine. No chest pain, SOome nausea, no fever. No chest pain. - Related Data Allergies Allergy/AdvReac Type Severity Reaction Status Date / Time No Known Allergies Allergy Verified 05/18/19 10:22 Home Meds: Home Meds Aspirin [Adult Low Dose Aspirin EC] 81 mg PO DAILY 10/01/13 [History] Nitroglycerin [Nitrostat] 0.4 mg SL .[id number] PRN 04/14/14 [History] metFORMIN HCl [Metformin HCl] 500 mg PO WITHBREAKFAST 01/14/16 [History] Acetaminophen [Acetaminophen Extra Strength] 500 mg PO Q6H PRN 05/18/19 [History] Albuterol [Proventil HFA] 2 puff INH Q6H PRN 05/18/19 [History] Loratadine 10 mg PO DAILY 05/18/19 [History] Metoprolol Tartrate [Lopressor] 25 mg PO BID 05/18/19 [History] amLODIPine Besylate [Norvasc] 10 mg PO DAILY 05/18/19 [History] hydroCHLOROthiazide [Hydrochlorothiazide] 25 mg PO DAILY 05/18/19 [History] levETIRAcetam [Keppra] 1,000 mg PO BID 05/18/19 [History] lisinopriL [Zestril] 40 mg PO DAILY 05/18/19 [History] Past Medical History HEENT History: Reports: None Cardiovascular History: Reports: CAD, High Cholesterol, Hypertension Other Cardiovascular History: patient poor historian. unknown type of cardiac history or why is on medications. states Nitro was given to him to control his seizures Other Respiratory History: patient denies history but has Albuterol inhaler on old med list and state that he still takes it once a day Gastrointestinal History: Reports: Other (See Below) Other Gastrointestinal History: chronic nausea Genitourinary History: Reports: None Musculoskeletal History: Reports: None Neurological History: Reports: Seizure Psychiatric History: Reports: None Endocrine/Metabolic History: Reports: Diabetes, Type II Other Endocrine/Metabolic History: patient states is a diabetic but takes no medications for this. "they gave me the little jar of nitro" Hematologic History: Reports: None Immunologic History: Reports: None Oncologic (Cancer) History: Reports: None Dermatologic History: Reports: Cellulitis Other Dermatologic History: palm of left hand and cellulitis - Infectious Disease History Infectious Disease History: Reports: Chicken Pox Other Infectious Disease History: patient is a poor historian - Past Surgical History Head Surgeries/Procedures: Reports: None HEENT Surgical History: Reports: None Cardiovascular Surgical History: Reports: Percutaneous Transluminal Angioplasty Social & Family History - Family History Family Medical History: No Pertinent Family History - Tobacco Use Tobacco Use Status *Q: Light Tobacco User Years of Tobacco use: 4 Packs/Tins Daily: 0.4 - Caffeine Use Caffeine Use: Reports: Soda - Living Situation & Occupation Living situation: Reports: Single Occupation: Disabled ED ROS GENERAL - Review of Systems Review Of Systems: Comprehensive ROS is negative, except as noted in HPI. ED EXAM, GI/ABD - Physical Exam Exam: See Below Exam Limited By: No Limitations General Appearance: Alert, Mild Distress, Obese Eyes: Bilateral: EOMI Ears: Normal External Exam, Hearing Grossly Normal Nose: Normal Inspection Throat/Mouth: Normal Inspection Head: Atraumatic, Normocephalic Neck: Normal Inspection Respiratory/Chest: No Respiratory Distress, Lungs Clear, Normal Breath Sounds Cardiovascular: Regular Rate, Rhythm GI/Abdominal Exam: Tender (lower), Abnormal Bowel Sounds (decreased), Hernia (umbilical ) Neurological: Alert, Oriented, Normal Cognition Psychiatric: Flat Affect Skin Exam: Warm, Dry, Intact, Normal Color #1 Interpretation EKG Date: 04/26/21 Time: 03:33 Rhythm: NSR Rate (Beats/Min): 58 [place]: Normal P-Wave: Present QRS: Other (incompete RBB) QT: Normal Comparison: NA - No Prior EKG Course - Re-Assessments/Exams Free Text/Narrative Re-Assessment/Exam: 04/26/21 06:48 Patient resting, Nausea resolved. Continue to await CT radiology report. Care transfer to Dr Willingham with shift change. Departure - Departure Disposition: Home, Self-Care 01 Clinical Impression: Hypomagnesemia Constipation Qualifiers: Constipation type: other constipation type Qualified Code(s): K59.09 - Other constipation - Discharge Information Instructions: Constipation, Adult, [id number], Hypomagnesemia Forms: ED Department Discharge Additional Instructions: High fiber diet, plenty of fresh fruits and vegetables, prunes or prune juice, and water. Follow up in clinic next week. Ask your clinic doctor to review your lab results and CT scan report from this ER visit. Sepsis Event Note (ED) - Evaluation Sepsis Screening Result: No Definite Risk <Jozef Willinghamian - Last Filed: 04/26/21 09:53> ED HPI GENERAL MEDICAL PROBLEM - General Source of Information: Reports: Patient, Old Records, Provider (Art REYES), RN, RN Notes Reviewed History Limitations: Reports: No Limitations - History of Present Illness INITIAL COMMENTS - FREE TEXT/NARRATIVE: I assumed care of the pt from Art REYES at 0700HR shift change. Pt is resting and is eager to have an enema to relieve his constipation. Admits to mild left and lower abdominal cramping and feeling the urge to have a BM. Denies current abdominal pain. Nausea has resolved for now. Pt claims he has not had a satisfactory BM of 4 or 5 days. Denies fever, chills, dysuria, cough, or chest pain. Onset: Gradual Duration: Week(s): (1), Constant, Getting Worse Location: Reports: Abdomen Quality: Reports: Other (Cramps) Severity: Moderate Improves with: Reports: None Worsens with: Reports: Eating Associated Symptoms: Reports: No Other Symptoms ED ROS GENERAL - Review of Systems Review Of Systems: Comprehensive ROS is negative, except as noted in HPI. ED EXAM, GI/ABD - Physical Exam Text/Narrative:: No change to exam as documented by the PA for this encounter. #1 Interpretation QRS: Other Course - Vital Signs Last Recorded V/S: Last Vital Signs Temp 97.5 F 04/26/21 02:54 Pulse 72 04/26/21 02:54 Resp 18 04/26/21 02:54 BP 169/97 H 04/26/21 02:54 Pulse Ox 97 04/26/21 02:54 - Orders/Labs/Meds Orders: Active Orders 24 hr Category Date Time Status EKG Documentation Completion [RC] STAT Care 04/26/21 02:54 Active Enema [RC] ASDIRECTED Care 04/26/21 06:00 Active Magnesium Sulfate/Water [Magnesium Sulfate in Water 2 Med 04/26/21 07:56 Active GM/50 ML] 2 gm Premix Bag 1 bag IV ONETIME Medication Orders Magnesium Sulfate 2 gm/ Premix 50 mls @ 25 mls/hr IV ONETIME ONE Stop: 04/26/21 09:55 Last Admin: 04/26/21 08:14 Dose: 25 mls/hr Documented by: KATH Labs: Laboratory Tests 04/26/21 04/26/21 04/26/21 Range/Units 02:51 03:12 03:12 WBC 10.5 H (5.0-10.0) 10^3/uL RBC 4.49 L (4.6-6.2) 10^6/uL Hgb 12.8 L (14.0-18.0) g/dL Hct 38.7 L (40.0-54.0) % MCV 86.2 (80-100) fL MCH 28.5 (27.0-34.0) pg MCHC 33.1 (33.0-35.0) g/dL Plt Count 207 (150-450) 10^3/uL Neut % (Auto) 62.0 (42.2-75.2) % Lymph % (Auto) 27.6 (20.5-50.1) % [place] % (Auto) 8.2 H (2-8) % Eos % (Auto) 2.0 (1.0-3.0) % Baso % (Auto) 0.2 (0.0-1.0) % Sodium 136 (136-145) mmol/L Potassium 3.7 (3.5-5.1) mmol/L Chloride 101 (98-107) mmol/L Carbon Dioxide 26 (21-32) mmol/L Anion Gap 12.7 (7-13) mEq/L BUN 17 (7-18) mg/dL Creatinine 0.87 (0.70-1.30) mg/dL Est Cr Clr Drug Dosing TNP Estimated GFR (MDRD) > 60 BUN/Creatinine Ratio 19.5 (No establ ref range) Glucose 226 H (70-99) mg/dL POC Glucose 242 H (70-99) mg/dL Lactic Acid (0.4-2.0) mmol/L Calcium 8.3 L (8.5-10.1) mg/dL Magnesium 1.6 L (1.8-2.4) mg/dL Total Bilirubin 0.3 (0.2-1.0) mg/dL AST 7 L (15-37) U/L ALT 21 (16-63) U/L Alkaline Phosphatase 96 (46-116) U/L Troponin I High Sens 82 H* (<=76) pg/mL C-Reactive Protein 0.5 (0.0-0.9) mg/dL B-Natriuretic Peptide 42 (0-100) pg/ml Total Protein 6.6 (6.4-8.2) g/dL Albumin 2.8 L (3.4-5.0) g/dL Globulin 3.8 Albumin/Globulin Ratio 0.74 Amylase (25-115) U/L Lipase (73-393) U/L Urine Color (YELLOW) Urine Appearance (CLEAR) Urine pH (5.0-9.0) Ur Specific [place] (1.005-1.030) Urine Protein (NEGATIVE) Urine Glucose (UA) (NEGATIVE) Urine Ketones (NEGATIVE) Urine Occult Blood (NEGATIVE) Urine Nitrite (NEGATIVE) Urine Bilirubin (NEGATIVE) Urine Urobilinogen (0.2-1.0) mg/dL Ur Leukocyte Esterase (NEGATIVE) Urine RBC (0-5) /HPF Urine WBC (0-5/HPF) /HPF Ur Epithelial Cells (NOT SEEN) /HPF Amorphous Sediment (NOT SEEN) /HPF Urine Bacteria (0-FEW/HPF) /HPF Urine Mucus (NOT SEEN) /LPF 04/26/21 04/26/21 04/26/21 Range/Units 03:12 03:12 04:25 WBC (5.0-10.0) 10^3/uL RBC (4.6-6.2) 10^6/uL Hgb (14.0-18.0) g/dL Hct (40.0-54.0) % MCV (80-100) fL MCH (27.0-34.0) pg MCHC (33.0-35.0) g/dL Plt Count (150-450) 10^3/uL Neut % (Auto) (42.2-75.2) % Lymph % (Auto) (20.5-50.1) % [place] % (Auto) (2-8) % Eos % (Auto) (1.0-3.0) % Baso % (Auto) (0.0-1.0) % Sodium (136-145) mmol/L Potassium (3.5-5.1) mmol/L Chloride (98-107) mmol/L Carbon Dioxide (21-32) mmol/L Anion Gap (7-13) mEq/L BUN (7-18) mg/dL Creatinine (0.70-1.30) mg/dL Est Cr Clr Drug Dosing Estimated GFR (MDRD) BUN/Creatinine Ratio (No establ ref range) Glucose (70-99) mg/dL POC Glucose (70-99) mg/dL Lactic Acid 1.2 (0.4-2.0) mmol/L Calcium (8.5-10.1) mg/dL Magnesium (1.8-2.4) mg/dL Total Bilirubin (0.2-1.0) mg/dL AST (15-37) U/L ALT (16-63) U/L Alkaline Phosphatase (46-116) U/L Troponin I High Sens (<=76) pg/mL C-Reactive Protein (0.0-0.9) mg/dL B-Natriuretic Peptide (0-100) pg/ml Total Protein (6.4-8.2) g/dL Albumin (3.4-5.0) g/dL Globulin Albumin/Globulin Ratio Amylase 29 (25-115) U/L Lipase 99 (73-393) U/L Urine Color Yellow (YELLOW) Urine Appearance Slightly cloudy (CLEAR) Urine pH 5.5 (5.0-9.0) Ur Specific [place] 1.010 (1.005-1.030) Urine Protein 30 H (NEGATIVE) Urine Glucose (UA) 100 H (NEGATIVE) Urine Ketones Negative (NEGATIVE) Urine Occult Blood Negative (NEGATIVE) Urine Nitrite Negative (NEGATIVE) Urine Bilirubin Negative (NEGATIVE) Urine Urobilinogen 0.2 (0.2-1.0) mg/dL Ur Leukocyte Esterase Negative (NEGATIVE) Urine RBC 0-5 (0-5) /HPF Urine WBC 0-5 (0-5/HPF) /HPF Ur Epithelial Cells Rare (NOT SEEN) /HPF Amorphous Sediment Few (NOT SEEN) /HPF Urine Bacteria Rare (0-FEW/HPF) /HPF Urine Mucus Rare (NOT SEEN) /LPF 04/26/21 Range/Units 05:18 WBC (5.0-10.0) 10^3/uL RBC (4.6-6.2) 10^6/uL Hgb (14.0-18.0) g/dL Hct (40.0-54.0) % MCV (80-100) fL MCH (27.0-34.0) pg MCHC (33.0-35.0) g/dL Plt Count (150-450) 10^3/uL Neut % (Auto) (42.2-75.2) % Lymph % (Auto) (20.5-50.1) % [place] % (Auto) (2-8) % Eos % (Auto) (1.0-3.0) % Baso % (Auto) (0.0-1.0) % Sodium (136-145) mmol/L Potassium (3.5-5.1) mmol/L Chloride (98-107) mmol/L Carbon Dioxide (21-32) mmol/L Anion Gap (7-13) mEq/L BUN (7-18) mg/dL Creatinine (0.70-1.30) mg/dL Est Cr Clr Drug Dosing Estimated GFR (MDRD) BUN/Creatinine Ratio (No establ ref range) Glucose (70-99) mg/dL POC Glucose (70-99) mg/dL Lactic Acid (0.4-2.0) mmol/L Calcium (8.5-10.1) mg/dL Magnesium (1.8-2.4) mg/dL Total Bilirubin (0.2-1.0) mg/dL AST (15-37) U/L ALT (16-63) U/L Alkaline Phosphatase (46-116) U/L Troponin I High Sens 83 H* (<=76) pg/mL C-Reactive Protein (0.0-0.9) mg/dL B-Natriuretic Peptide (0-100) pg/ml Total Protein (6.4-8.2) g/dL Albumin (3.4-5.0) g/dL Globulin Albumin/Globulin Ratio Amylase (25-115) U/L Lipase (73-393) U/L Urine Color (YELLOW) Urine Appearance (CLEAR) Urine pH (5.0-9.0) Ur Specific [place] (1.005-1.030) Urine Protein (NEGATIVE) Urine Glucose (UA) (NEGATIVE) Urine Ketones (NEGATIVE) Urine Occult Blood (NEGATIVE) Urine Nitrite (NEGATIVE) Urine Bilirubin (NEGATIVE) Urine Urobilinogen (0.2-1.0) mg/dL Ur Leukocyte Esterase (NEGATIVE) Urine RBC (0-5) /HPF Urine WBC (0-5/HPF) /HPF Ur Epithelial Cells (NOT SEEN) /HPF Amorphous Sediment (NOT SEEN) /HPF Urine Bacteria (0-FEW/HPF) /HPF Urine Mucus (NOT SEEN) /LPF *Chronic mild Troponin elevation documented for several years. Meds: Medications Generic Name Dose Route Start Last Admin Trade Name Freq PRN Reason Stop Dose Admin Magnesium Sulfate 2 gm/ Premix 50 mls @ 25 mls/hr 04/26/21 07:56 04/26/21 08:14 IV 04/26/21 09:55 25 mls/hr ONETIME ONE Administration Discontinued Medications Generic Name Dose Route Start Last Admin Trade Name Freq PRN Reason Stop Dose Admin Bisacodyl 10 mg 04/26/21 07:57 04/26/21 08:20 Bisacodyl 5 Mg Tab PO 04/26/21 07:58 10 mg ONETIME ONE Administration Fentanyl 25 mcg 04/26/21 06:00 04/26/21 08:08 Fentanyl 100 Mcg/2 Ml Sdv IVPUSH 04/26/21 06:01 25 mcg ONETIME ONE Administration Sodium Chloride 1,000 mls @ 250 mls/hr 04/26/21 04:15 04/26/21 05:12 Normal Saline IV 04/26/21 08:14 250 mls/hr .BOLUS ONE Administration Iopamidol 100 ml 04/26/21 04:12 04/26/21 06:13 Iopamidol 612 Mg/Ml 100 Ml Bottle IVPUSH 04/26/21 04:13 100 ml ONETIME ONE Administration Lactulose 20 gm 04/26/21 07:57 04/26/21 08:07 Lactulose Soln 10 Gm/15 Ml 30 Ml Ud Cup PO 04/26/21 07:58 20 gm ONETIME ONE Administration Ondansetron HCl 4 mg 04/26/21 03:03 04/26/21 03:26 Ondansetron 4 Mg/2 Ml Sdv IVPUSH 04/26/21 03:04 4 mg ONETIME ONE Administration Ondansetron HCl 4 mg 04/26/21 07:56 04/26/21 08:09 Ondansetron 4 Mg/2 Ml Sdv IV 04/26/21 07:57 4 mg ONETIME ONE Administration - Radiology Interpretation Free Text/Narrative:: [facility] [place] [facility] Final Radiology Report Call: [phone] assistance Online chat: [email or web address] Name: SON GALLOWAY Age: 65Years M Date: 04/26/2021 SSN: -- : [id number] Study: CT ABDOMEN PELVIS W CONT Requesting Physician: ART LEYVA Images: [id number] Addl Studies: Provided Clinical History: abd pain constipation , dizzy nausea Contrast: With Contrast Medium: Isovue Contrast Amount: 100 mL Contrast Method: Intravenous (IV) Page 1 of 2 PROCEDURE INFORMATION: Exam: CT Abdomen And Pelvis With Contrast Exam date and time: 04/26/2021 4:39 AM Age: 65 years old Clinical indication: Abdominal pain; Additional info: Abd pain constipation , dizzy nausea TECHNIQUE: Imaging protocol: Computed tomography of the abdomen and pelvis with contrast. Radiation optimization: All CT scans at this facility use at least one of these dose optimization techniques: automated exposure control; mA and/or kV adjustment per patient size (includes targeted exams where dose is matched to clinical indication); or iterative reconstruction. Contrast material: ISOVUE; Contrast volume: 100 ml; Contrast route: INTRAVENOUS (IV); COMPARISON: CT Abdomen Pelvis w Cont 05/15/2020 10:30 AM FINDINGS: Lungs: Peribronchial cuffing. Heart: Unchanged cardiomegaly. Mediastinal space: Small hiatal hernia. Liver: Unchanged fatty liver with lobular contour Gallbladder and bile ducts: Unchanged cholecystectomy. Unchanged normal CBD. No CBD stone. Pancreas: Interval mild haziness of peripancreatic head fat. Interval low- attenuation pancreatic head. No pseudocyst. No pancreatic necrosis. Spleen: Unchanged normal spleen. Adrenal glands: Unchanged normal adrenals. Kidneys and ureters: Unchanged 2 cm exophytic lower pole left renal cyst open (HU = 9). No obstructive uropathy. Stomach and bowel: Incompletely distended stomach. Nonobstructed small bowel. Mild colonic gas and feces. No diverticulitis or colitis. SON GALLOWAY | Final Radiology Report CONFIDENTIALITY STATEMENT This report is intended only for use by the referring physician, and only in ac cordance with law. If you received this in error, call [phone]. Page 2 of 2 Appendix: No inflamed appendix. Intraperitoneal space: Unchanged missed the central mesentery. No free air, ascites, or abscess. Vasculature: Unchanged ectatic atherosclerotic aorta. No splenic vein thrombosis. No pseudoaneurysm. Lymph nodes: No adenopathy. Small/indeterminate lymph nodes. Urinary bladder: Small to moderate bladder. Reproductive: Unchanged normal prostate. Bones/joints: Unchanged bones. Scoliosis. Multilevel bridging anterior osteophytes. No spondylolysis. No spondylolisthesis. 3 mm grade 1 anterolisthesis L5-S1. Soft tissues: Similar nonobstructing herniation of redundant sigmoid colon and prominent properitoneal fat into ventral pelvic wall through 4 cm infraumbilical defect into overhanging pelvic pannus. Interval fat stranding of the subcutaneous fat in the right ventral pelvic pannus, image 80, series 2. IMPRESSION: 1. Interval mild haziness of peripancreatic fat. Correlate with laboratory findings for possible chemical pancreatitis. 2. Unchanged nonobstructing herniation of sigmoid colon through 4 cm infraumbilical ventral wall defect. No CT signs of strangulation. 3. Interval cellulitis right ventral pelvic wall with subcutaneous fat stranding versus subcutaneous injection. 4. Unchanged cholecystectomy. No biliary obstruction. 5. Unchanged missed the mesentery -mesenteric panniculitis versus , less likely, early sinal lymphoma or metastasis. 6. See report body for additional findings. Thank you for allowing us to participate in the care of your patient. Dictated and Authenticated by: Jamil Urrutia MD 04/26/2021 7:49 AM Central Time ([place] & [place]) - Re-Assessments/Exams Free Text/Narrative Re-Assessment/Exam: 04/26/21 09:50 Pt with BM following enema, feeling relieved. Departure - Departure Time of Disposition: 09:50 Condition: Good - Discharge Information *PRESCRIPTION DRUG MONITORING PROGRAM REVIEWED*: Not Applicable *COPY OF PRESCRIPTION DRUG MONITORING REPORT IN PATIENT CHAS: Not Applicable Sepsis Event Note (ED) - Focused Exam Vital Signs: Vital Signs Temp Pulse Resp BP Pulse Ox 04/26/21 02:54 97.5 F 72 18 169/97 H 97 - My Orders Last 24 Hours: My Active Orders 04/26/21 07:56 Magnesium Sulfate/Water [Magnesium Sulfate in Water 2 GM/50 ML] 2 gm Premix Bag 1 bag IV ONETIME - Assessment/Plan Last 24 Hours: My Active Orders 04/26/21 07:56 Magnesium Sulfate/Water [Magnesium Sulfate in Water 2 GM/50 ML] 2 gm Premix Bag 1 bag IV ONETIME
[2021-04-26 03:49] LABS: ANION GAP 12.7 mEq/L (7-13); CHLORIDE,CL 101 mmol/L (98-107); SODIUM,NA 136 mmol/L (136-145)
[2021-04-26] MEDS ORDERED: Iopamidol 612 MG/ML 100 ML Bottle IVPUSH ONE (04:12)
[2021-04-26] MEDS ORDERED: Sodium Chloride 0.9% 1,000 ML IV ONE (04:15)
[2021-04-26] MEDS ORDERED: fentaNYL 100 MCG/2 ML SDV IVPUSH ONE (06:00)
--- NOTE | 2021-04-26 07:49 | CT ---
PROCEDURE INFORMATION: Exam: CT Abdomen And Pelvis With Contrast Exam date and time: 04/26/2021 4:39 AM Age: 65 years old Clinical indication: Abdominal pain; Additional info: Abd pain constipation , dizzy nausea TECHNIQUE: Imaging protocol: Computed tomography of the abdomen and pelvis with contrast. Radiation optimization: All CT scans at this facility use at least one of these dose optimization techniques: automated exposure control; mA and/or kV adjustment per patient size (includes targeted exams where dose is matched to clinical indication); or iterative reconstruction. Contrast material: ISOVUE; Contrast volume: 100 ml; Contrast route: INTRAVENOUS (IV); COMPARISON: CT Abdomen Pelvis w Cont 05/15/2020 10:30 AM FINDINGS: Lungs: Peribronchial cuffing. Heart: Unchanged cardiomegaly. Mediastinal space: Small hiatal hernia. Liver: Unchanged fatty liver with lobular contour Gallbladder and bile ducts: Unchanged cholecystectomy. Unchanged normal CBD. No CBD stone. Pancreas: Interval mild haziness of peripancreatic head fat. Interval low-attenuation pancreatic head. No pseudocyst. No pancreatic necrosis. Spleen: Unchanged normal spleen. Adrenal glands: Unchanged normal adrenals. Kidneys and ureters: Unchanged 2 cm exophytic lower pole left renal cyst open (HU = 9). No obstructive uropathy. Stomach and bowel: Incompletely distended stomach. Nonobstructed small bowel. Mild colonic gas and feces. No diverticulitis or colitis. Appendix: No inflamed appendix. Intraperitoneal space: Unchanged missed the central mesentery. No free air, ascites, or abscess. Vasculature: Unchanged ectatic atherosclerotic aorta. No splenic vein thrombosis. No pseudoaneurysm. Lymph nodes: No adenopathy. Small/indeterminate lymph nodes. Urinary bladder: Small to moderate bladder. Reproductive: Unchanged normal prostate. Bones/joints: Unchanged bones. Scoliosis. Multilevel bridging anterior osteophytes. No spondylolysis. No spondylolisthesis. 3 mm grade 1 anterolisthesis L5-S1. Soft tissues: Similar nonobstructing herniation of redundant sigmoid colon and prominent properitoneal fat into ventral pelvic wall through 4 cm infraumbilical defect into overhanging pelvic pannus. Interval fat stranding of the subcutaneous fat in the right ventral pelvic pannus, image 80, series 2. IMPRESSION: 1. Interval mild haziness of peripancreatic fat. Correlate with laboratory findings for possible chemical pancreatitis. 2. Unchanged nonobstructing herniation of sigmoid colon through 4 cm infraumbilical ventral wall defect. No CT signs of strangulation. 3. Interval cellulitis right ventral pelvic wall with subcutaneous fat stranding versus subcutaneous injection. 4. Unchanged cholecystectomy. No biliary obstruction. 5. Unchanged missed the mesentery -mesenteric panniculitis versus , less likely, early sinal lymphoma or metastasis. 6. See report body for additional findings.
[2021-04-26] MEDS ORDERED: Ondansetron 4 MG/2 ML SDV IV ONE (07:56)
[2021-04-26] MEDS ORDERED: Magnesium Sulfate/Water 2 GM in Premix Bag 1 BAG IV ONE (07:56)
[2021-04-26] MEDS ORDERED: Bisacodyl 5 MG Tab PO ONE (07:57)
[2021-04-26] MEDS ORDERED: Lactulose Soln 10 GM/15 ML 30 ML UD Cup PO ONE (07:57)
== END 2021-04-26 10:47 | disposition home or self-care (01) ==
LOC: DL.ED 02:38
DX: K59.09 Other constipation (principal); E83.42 Hypomagnesemia; I25.10 Atherosclerotic heart disease of native coronary artery without angina pectoris; E78.00 Pure hypercholesterolemia, unspecified; I10 Essential (primary) hypertension; E11.9 Type 2 diabetes mellitus without complications; Z79.899 Other long term (current) drug therapy; Z79.82 Long term (current) use of aspirin; Z79.84 Long term (current) use of oral hypoglycemic drugs
CPT/HCPCS: 36415; 74177; 80053; 81001; 82150; 82947; 83605; 83690; 83735; 83880; 84484; 85025; 86140; 93005; 96365; 96366; 96375; 96376; 99284; A9270; J2405; J3010; J3475; J7030; Q9967

== ENCOUNTER 2021-06-02 16:29 | Emergency (ER) | payer MEDICAID ==
--- NOTE | 2021-06-02 17:20 | EDM.PDOC ---
ED HPI GENERAL MEDICAL PROBLEM - General Chief Complaint: Cardiovascular Problem Stated Complaint: DIZZY FEELS OFF BALANCE Time Seen by Provider: 06/02/21 17:00 Source of Information: Reports: Patient History Limitations: Reports: No Limitations - History of Present Illness INITIAL COMMENTS - FREE TEXT/NARRATIVE: 65 y/o M states he has been dizzy since early this morning and feeling like he may pass out. He reports being very off balance all day. Symptoms have resolved somewhat on their own and pt reports his baum as 2/10 currently. BAUM is located in the front of head it is constant sharp and non radiating. Denies nausea, trauma, He also reports some mild R sided chest pain. Onset: Today, Sudden Duration: Hour(s): Location: Reports: Head Quality: Reports: Sharp Severity: Mild Improves with: Reports: None - Related Data Allergies Allergy/AdvReac Type Severity Reaction Status Date / Time No Known Allergies Allergy Verified 05/18/19 10:22 Home Meds: Home Meds Aspirin [Adult Low Dose Aspirin EC] 81 mg PO DAILY 10/01/13 [History] Nitroglycerin [Nitrostat] 0.4 mg SL .[id number] PRN 04/14/14 [History] metFORMIN HCl [Metformin HCl] 500 mg PO WITHBREAKFAST 01/14/16 [History] Acetaminophen [Acetaminophen Extra Strength] 500 mg PO Q6H PRN 05/18/19 [History] Albuterol [Proventil HFA] 2 puff INH Q6H PRN 05/18/19 [History] Loratadine 10 mg PO DAILY 05/18/19 [History] Metoprolol Tartrate [Lopressor] 25 mg PO BID 05/18/19 [History] amLODIPine Besylate [Norvasc] 10 mg PO DAILY 05/18/19 [History] hydroCHLOROthiazide [Hydrochlorothiazide] 25 mg PO DAILY 05/18/19 [History] levETIRAcetam [Keppra] 1,000 mg PO BID 05/18/19 [History] lisinopriL [Zestril] 40 mg PO DAILY 05/18/19 [History] Insulin Detemir [Levemir] 44 unit SUBCUT DAILY 06/02/21 [History] Past Medical History HEENT History: Reports: None Cardiovascular History: Reports: CAD, High Cholesterol, Hypertension Other Cardiovascular History: patient poor historian. unknown type of cardiac history or why is on medications. states Nitro was given to him to control his seizures Other Respiratory History: patient denies history but has Albuterol inhaler on old med list and state that he still takes it once a day Gastrointestinal History: Reports: Other (See Below) Other Gastrointestinal History: chronic nausea Genitourinary History: Reports: None Musculoskeletal History: Reports: None Neurological History: Reports: Seizure Psychiatric History: Reports: None Endocrine/Metabolic History: Reports: Diabetes, Type II Other Endocrine/Metabolic History: patient states is a diabetic but takes no medications for this. "they gave me the little jar of nitro" Hematologic History: Reports: None Immunologic History: Reports: None Oncologic (Cancer) History: Reports: None Dermatologic History: Reports: Cellulitis Other Dermatologic History: palm of left hand and cellulitis - Infectious Disease History Infectious Disease History: Reports: Chicken Pox Other Infectious Disease History: patient is a poor historian - Past Surgical History Head Surgeries/Procedures: Reports: None HEENT Surgical History: Reports: None Cardiovascular Surgical History: Reports: Percutaneous Transluminal Angioplasty Social & Family History - Family History Family Medical History: No Pertinent Family History - Caffeine Use Caffeine Use: Reports: Soda - Living Situation & Occupation Living situation: Reports: Single Occupation: Disabled ED ROS GENERAL - Review of Systems Review Of Systems: Comprehensive ROS is negative, except as noted in HPI. ED EXAM, GENERAL - Physical Exam Exam: See Below Exam Limited By: No Limitations General Appearance: Alert, No Apparent Distress Eye Exam: Bilateral Eye: PERRL (with conjugate gaze no visible nystagmus) Ears: Normal External Exam, Normal Canal, Hearing Grossly Normal, Normal TMs Nose: Normal Inspection, Normal Mucosa, No Blood Throat/Mouth: Normal Inspection, Normal Lips, Normal Teeth, Normal Gums, Normal Oropharynx, Normal Voice, No Airway Compromise Head: Atraumatic, Normocephalic Neck: Supple, Non-Tender Respiratory/Chest: No Respiratory Distress, Lungs Clear Cardiovascular: Normal Peripheral Pulses, Regular Rate, Rhythm, No JVD GI/Abdominal: Normal Bowel Sounds, Soft, Non-Tender (Male) Exam: Deferred Rectal (Males) Exam: Deferred Back Exam: Normal Inspection, Full Range of Motion Extremities: Normal Inspection, Normal Range of Motion, Non-Tender, Normal Capillary Refill, No Pedal Edema Neurological: Alert, Oriented, CN II-XII Intact, Normal Cognition Psychiatric: Normal Mood Skin Exam: Warm, Dry, Intact #1 Interpretation EKG Date: 06/02/21 Time: 15:15 Rhythm: Other (sinus) [place]: LAD-Left [place] Deviation P-Wave: Present QRS: Wide ST-T: Normal QT: Normal Course - Vital Signs Last Recorded V/S: Last Vital Signs Temp 98.1 F 06/02/21 17:19 Pulse 66 06/02/21 17:19 Resp 18 06/02/21 17:19 BP 178/88 H 06/02/21 17:19 Pulse Ox 98 06/02/21 17:19 - Orders/Labs/Meds Orders: Active Orders 24 hr Category Date Time Status Blood Glucose Check, Bedside [RC] ONETIME Care 06/02/21 17:08 Active Peripheral IV Care [RC] . DIRECTED Care 06/02/21 17:09 Active DRUG SCREEN, URINE [URCHEM] Stat Lab 06/02/21 17:13 Ordered Labs: Laboratory Tests 06/02/21 06/02/21 06/02/21 Range/Units 16:56 17:10 17:30 WBC 8.0 (5.0-10.0) 10^3/uL RBC 4.60 (4.6-6.2) 10^6/uL Hgb 13.1 L (14.0-18.0) g/dL Hct 39.9 L (40.0-54.0) % MCV 86.7 (80-100) fL MCH 28.5 (27.0-34.0) pg MCHC 32.8 L (33.0-35.0) g/dL Plt Count 201 (150-450) 10^3/uL Neut % (Auto) 53.1 (42.2-75.2) % Lymph % (Auto) 36.4 (20.5-50.1) % Pierce % (Auto) 8.6 H (2-8) % Eos % (Auto) 1.8 (1.0-3.0) % Baso % (Auto) 0.1 (0.0-1.0) % Add Manual Diff Yes Neutrophils % (Manual) 64 (42-75) % Band Neutrophils % 1 % Lymphocytes % (Manual) 27 (20-50) % Monocytes % (Manual) 5 (2-8) % Eosinophils % (Manual) 2 (1-3) % Basophils % (Manual) 1 D-Dimer, Quantitative (0-400) ng/mL Sodium (136-145) mmol/L Potassium (3.5-5.1) mmol/L Chloride (98-107) mmol/L Carbon Dioxide (21-32) mmol/L Anion Gap (7-13) mEq/L BUN (7-18) mg/dL Creatinine (0.70-1.30) mg/dL Est Cr Clr Drug Dosing Estimated GFR (MDRD) BUN/Creatinine Ratio (No establ ref range) Glucose (70-99) mg/dL POC Glucose 310 H (70-99) mg/dL Calcium (8.5-10.1) mg/dL Magnesium (1.8-2.4) mg/dL Total Bilirubin (0.2-1.0) mg/dL AST (15-37) U/L ALT (16-63) U/L Alkaline Phosphatase (46-116) U/L Troponin I High Sens (<=76) pg/mL B-Natriuretic Peptide (0-100) pg/ml Total Protein (6.4-8.2) g/dL Albumin (3.4-5.0) g/dL Globulin Albumin/Globulin Ratio TSH, Ultra Sensitive (0.36-3.74) uIU/mL Ethyl Alcohol (0) mg/dL SARS-CoV-2 RNA (BETTINA) Negative (NEGATIVE) 06/02/21 06/02/21 Range/Units 17:30 17:30 WBC (5.0-10.0) 10^3/uL RBC (4.6-6.2) 10^6/uL Hgb (14.0-18.0) g/dL Hct (40.0-54.0) % MCV (80-100) fL MCH (27.0-34.0) pg MCHC (33.0-35.0) g/dL Plt Count (150-450) 10^3/uL Neut % (Auto) (42.2-75.2) % Lymph % (Auto) (20.5-50.1) % Pierce % (Auto) (2-8) % Eos % (Auto) (1.0-3.0) % Baso % (Auto) (0.0-1.0) % Add Manual Diff Neutrophils % (Manual) (42-75) % Band Neutrophils % % Lymphocytes % (Manual) (20-50) % Monocytes % (Manual) (2-8) % Eosinophils % (Manual) (1-3) % Basophils % (Manual) D-Dimer, Quantitative 525 H (0-400) ng/mL Sodium 136 (136-145) mmol/L Potassium 4.2 (3.5-5.1) mmol/L Chloride 102 (98-107) mmol/L Carbon Dioxide 29 (21-32) mmol/L Anion Gap 9.2 (7-13) mEq/L BUN 13 (7-18) mg/dL Creatinine 0.93 (0.70-1.30) mg/dL Est Cr Clr Drug Dosing TNP Estimated GFR (MDRD) > 60 BUN/Creatinine Ratio 14.0 (No establ ref range) Glucose 333 H (70-99) mg/dL POC Glucose (70-99) mg/dL Calcium 8.5 (8.5-10.1) mg/dL Magnesium 1.9 (1.8-2.4) mg/dL Total Bilirubin 0.2 (0.2-1.0) mg/dL AST 14 L (15-37) U/L ALT 26 (16-63) U/L Alkaline Phosphatase 89 (46-116) U/L Troponin I High Sens 79 H* (<=76) pg/mL B-Natriuretic Peptide 18 (0-100) pg/ml Total Protein 6.9 (6.4-8.2) g/dL Albumin 3.0 L (3.4-5.0) g/dL Globulin 3.9 Albumin/Globulin Ratio 0.77 TSH, Ultra Sensitive 3.20 (0.36-3.74) uIU/mL Ethyl Alcohol < 3 (0) mg/dL SARS-CoV-2 RNA ([facility]ETTINA) (NEGATIVE) - Re-Assessments/Exams Free Text/Narrative Re-Assessment/Exam: 06/02/21 18:57 Discussed labs, exam, ekg and imaging with pt and explained no discernable cause to his symptoms could be deternimed. Pts symptoms have improved without intervention and he would like to go home. Departure - Departure Time of Disposition: 18:58 Disposition: Home, Self-Care 01 Condition: Good Clinical Impression: Dizziness Forms: ED Department Discharge Additional Instructions: If any new symptoms or concerns develop contact your primary care facility or return to the ER. Sepsis Event Note (ED) - Focused Exam Vital Signs: Vital Signs Temp Pulse Resp BP Pulse Ox 06/02/21 17:19 98.1 F 66 18 178/88 H 98
[2021-06-02 17:27] VITALS: BP 178/88; PULSE 66
[2021-06-02 18:07] LABS: ANION GAP 9.2 mEq/L (7-13); CHLORIDE,CL 102 mmol/L (98-107); SODIUM,NA 136 mmol/L (136-145)
--- NOTE | 2021-06-02 18:24 | CT ---
PROCEDURE INFORMATION: Exam: CT Head Without Contrast Exam date and time: 06/02/2021 5:38 PM Age: 65 years old Clinical indication: Other: Headache; Additional info: Dizziness, near syncope, headache TECHNIQUE: Imaging protocol: Computed tomography of the head without contrast. Radiation optimization: All CT scans at this facility use at least one of these dose optimization techniques: automated exposure control; mA and/or kV adjustment per patient size (includes targeted exams where dose is matched to clinical indication); or iterative reconstruction. COMPARISON: CT Head wo Cont 05/13/2019 4:21 PM FINDINGS: Brain: Normal. No hemorrhage. Unremarkable white matter. No mass effect. Cerebral ventricles: No ventriculomegaly. Paranasal sinuses: Visualized sinuses are unremarkable. No fluid levels. Mastoid air cells: Visualized mastoid air cells are well aerated. Bones/joints: Unremarkable. No acute fracture. Soft tissues: Unremarkable. IMPRESSION: No acute intracranial abnormality.
--- NOTE | 2021-06-02 18:26 | CR ---
PROCEDURE INFORMATION: Exam: XR Chest Exam date and time: 06/02/2021 5:43 PM Age: 65 years old Clinical indication: Shortness of breath TECHNIQUE: Imaging protocol: XR of the chest. Views: 1 view. COMPARISON: CR Chest 1V Frontal 05/13/2019 4:19 PM FINDINGS: Lungs: Unremarkable. No consolidation. Pleural spaces: Unremarkable. No pleural effusion. No pneumothorax. Heart/Mediastinum: Stable cardiomegaly Bones/joints: Unremarkable. IMPRESSION: No acute findings
[2021-06-02 19:15] LABS: METHAMPHETAMINES,URINE NEGATIVE (NEGATIVE)
[2021-06-02 19:16] LABS: AMPHETAMINES,URINE NEGATIVE (NEGATIVE); BARBITURATES,URINE NEGATIVE (NEGATIVE); BENZODIAZEPINE,URINE NEGATIVE (NEGATIVE); MDMA (ECSTASY), URINE NEGATIVE (NEGATIVE); METHADONE,URINE NEGATIVE (NEGATIVE); OPIATES,URINE NEGATIVE (NEGATIVE); OXYCODONE,URINE NEGATIVE (NEGATIVE); PHENCYCLIDINE,URINE NEGATIVE (NEGATIVE); TCA,URINE NEGATIVE (NEGATIVE)
== END 2021-06-02 19:51 | disposition home or self-care (01) ==
LOC: DL.ED 16:29
DX: R42 Dizziness and giddiness (principal); I25.10 Atherosclerotic heart disease of native coronary artery without angina pectoris; I10 Essential (primary) hypertension; E11.9 Type 2 diabetes mellitus without complications; R56.9 Unspecified convulsions; Z79.82 Long term (current) use of aspirin; Z79.4 Long term (current) use of insulin; Z79.899 Other long term (current) drug therapy; Z20.822 Contact with and (suspected) exposure to COVID-19
CPT/HCPCS: 36415; 70450; 71045; 80053; 80305-QW; 80307; 82947; 83735; 83880; 84443; 84484; 85025; 85379; 93005; 99284-25; U0002

== ENCOUNTER 2021-06-22 17:08 | Emergency (ER) | payer MEDICAID ==
[2021-06-22 19:00] VITALS: BP 173/106; PULSE 80
--- NOTE | 2021-06-22 21:56 | EDM.PDOC ---
ED HPI GENERAL MEDICAL PROBLEM - General Chief Complaint: Gastrointestinal Problem Stated Complaint: CONSTIPATION Time Seen by Provider: 06/22/21 21:46 Source of Information: Reports: Patient History Limitations: Reports: No Limitations - History of Present Illness INITIAL COMMENTS - FREE TEXT/NARRATIVE: Pt is here today for constipation. He noted he ate around 1400 today and tried to have a BM, but was unable to do so. He was still feeling bloated around 1600 so he decided to come in for evaluation. He had a normal bowel movement yesterday. He denies any fevers or chills. No recent illnesses. While in the waiting room, he was thirsty so he drank a soda. After the soda, he felt his stomach rumble and was able to use the restroom with a good bowel movement. He did not try over the counter medications as he was not sure what he should be taking or when. abdomen Pain Score (Numeric/FACES): 8 - Related Data Allergies Allergy/AdvReac Type Severity Reaction Status Date / Time No Known Allergies Allergy Verified 06/22/21 19:00 Home Meds: Home Meds Aspirin [Adult Low Dose Aspirin EC] 81 mg PO DAILY 10/01/13 [History] Nitroglycerin [Nitrostat] 0.4 mg SL .[id number] PRN 04/14/14 [History] metFORMIN HCl [Metformin HCl] 500 mg PO WITHBREAKFAST 01/14/16 [History] Acetaminophen [Acetaminophen Extra Strength] 500 mg PO Q6H PRN 05/18/19 [History] Albuterol [Proventil HFA] 2 puff INH Q6H PRN 05/18/19 [History] Loratadine 10 mg PO DAILY 05/18/19 [History] Metoprolol Tartrate [Lopressor] 25 mg PO BID 05/18/19 [History] amLODIPine Besylate [Norvasc] 10 mg PO DAILY 05/18/19 [History] hydroCHLOROthiazide [Hydrochlorothiazide] 25 mg PO DAILY 05/18/19 [History] levETIRAcetam [Keppra] 1,000 mg PO BID 05/18/19 [History] lisinopriL [Zestril] 40 mg PO DAILY 05/18/19 [History] Insulin Detemir [Levemir] 44 unit SUBCUT BID 06/02/21 [History] Past Medical History HEENT History: Reports: None Cardiovascular History: Reports: CAD, High Cholesterol, Hypertension Other Cardiovascular History: patient poor historian. unknown type of cardiac history or why is on medications. states Nitro was given to him to control his seizures Other Respiratory History: patient denies history but has Albuterol inhaler on old med list and state that he still takes it once a day Gastrointestinal History: Reports: Other (See Below) Other Gastrointestinal History: chronic nausea Genitourinary History: Reports: None Musculoskeletal History: Reports: None Neurological History: Reports: Seizure Psychiatric History: Reports: None Endocrine/Metabolic History: Reports: Diabetes, Type II Other Endocrine/Metabolic History: patient states is a diabetic but takes no medications for this. "they gave me the little jar of nitro" Hematologic History: Reports: None Immunologic History: Reports: None Oncologic (Cancer) History: Reports: None Dermatologic History: Reports: Cellulitis Other Dermatologic History: palm of left hand and cellulitis - Infectious Disease History Infectious Disease History: Reports: Chicken Pox Other Infectious Disease History: patient is a poor historian - Past Surgical History Head Surgeries/Procedures: Reports: None HEENT Surgical History: Reports: None Cardiovascular Surgical History: Reports: Percutaneous Transluminal Angioplasty Social & Family History - Family History Family Medical History: No Pertinent Family History - Caffeine Use Caffeine Use: Reports: None - Living Situation & Occupation Living situation: Reports: Single Occupation: Disabled ED ROS GENERAL - Review of Systems Review Of Systems: Comprehensive ROS is negative, except as noted in HPI. ED EXAM, GI/ABD - Physical Exam Exam: See Below Exam Limited By: No Limitations General Appearance: Alert, WD/WN, No Apparent Distress Ears: Normal External Exam Throat/Mouth: Normal Voice, No Airway Compromise Head: Atraumatic, Normocephalic Respiratory/Chest: No Respiratory Distress, Lungs Clear, Normal Breath Sounds, No Accessory Muscle Use Cardiovascular: Normal Peripheral Pulses, Regular Rate, Rhythm, No Murmur GI/Abdominal Exam: Normal Bowel Sounds, Soft, Non-Tender, No Distention, No Mass, Hernia (umbilical, easily reducible) (Male) Exam: Deferred Rectal (Males) Exam: Deferred Neurological: Alert, Oriented Psychiatric: Normal Affect, Normal Mood Skin Exam: Warm, Dry, Intact Course - Vital Signs Last Recorded V/S: Last Vital Signs Temp 97.0 F 06/22/21 18:55 Pulse 80 06/22/21 18:55 Resp 18 06/22/21 18:55 BP 173/106 H 06/22/21 18:55 Pulse Ox 97 06/22/21 18:55 Departure - Departure Time of Disposition: 21:53 Disposition: Home, Self-Care 01 Condition: Good Clinical Impression: Constipation Qualifiers: Constipation type: other constipation type Qualified Code(s): K59.09 - Other constipation - Discharge Information *PRESCRIPTION DRUG MONITORING PROGRAM REVIEWED*: Not Applicable *COPY OF PRESCRIPTION DRUG MONITORING REPORT IN PATIENT CHAS: Not Applicable Instructions: Constipation, Adult, [id number] Additional Instructions: puppy walker some milk of magnesia and/or magnesium citrate to have at home in case this occurs again If symptoms return, try the medications listed above. If it does not resolve, or if it worsens, call/return to the ER Follow up with your primary care provider in 3-5 days, or sooner if needed Sepsis Event Note (ED) - Evaluation Sepsis Screening Result: No Definite Risk - Focused Exam Vital Signs: Vital Signs Temp Pulse Resp BP Pulse Ox 06/22/21 18:55 97.0 F 80 18 173/106 H 97
== END 2021-06-22 22:11 | disposition home or self-care (01) ==
LOC: DL.ED 17:08
DX: K59.09 Other constipation (principal); I25.10 Atherosclerotic heart disease of native coronary artery without angina pectoris; I10 Essential (primary) hypertension; E11.9 Type 2 diabetes mellitus without complications; Z79.82 Long term (current) use of aspirin; Z79.4 Long term (current) use of insulin; Z79.899 Other long term (current) drug therapy
CPT/HCPCS: 99283

== ENCOUNTER 2021-07-28 06:29 | Inpatient (IN) | payer MEDICAID ==
[2021-07-28 07:35] LABS: ANION GAP 17.4 mEq/L (7-13); CHLORIDE,CL 99 mmol/L (98-107); SODIUM,NA 133 mmol/L (136-145)
[2021-07-28] MEDS ORDERED: Piperacillin/Tazobactam 4.5 GM in Sodium Chloride 0.9% 100 ML IV ONE (07:54)
[2021-07-28] MEDS ORDERED: WATER IV ONE ×2 (07:54)
[2021-07-28] MEDS ORDERED: Sodium Chloride 0.9% 1,000 ML IV ONE ×2 (07:54→13:58)
[2021-07-28] MEDS ORDERED: Sodium Chloride 0.9% 10 ML Syringe FLUSH PRN (07:54)
[2021-07-28] MEDS ORDERED: DEXTROSE 5% IV ONE ×2 (07:54)
[2021-07-28] MEDS ORDERED: VANCOMYCIN IV ONE ×2 (07:54)
--- NOTE | 2021-07-28 08:20 | EDM.PDOC ---
<Neli Lopez - Last Filed: 07/28/21 09:39> ED HPI GENERAL MEDICAL PROBLEM - General Chief Complaint: Back Pain or Injury Stated Complaint: AMBULANCE Time Seen by Provider: 07/28/21 07:45 Source of Information: Reports: Patient History Limitations: Reports: No Limitations - History of Present Illness INITIAL COMMENTS - FREE TEXT/NARRATIVE: 65yo male presented to ED with lower back pain after reported seizure at home. He states seizure occurred two days ago, he crawled to his front room and was unable to stand due to back pain. He took his anti seizure medication before the seizure, last dose "right before I came here". Lower back pain that does not radiate to legs. This is an acute exacerbation of a chronic problem. He is also concerned about his umbilical hernia. It is increasing in size and tender to touch. NO previous surgical evaluation for repair. Denies alcohol use in past week. No illicit drug use. Lab reported critical WBC of 27,000. PMHX of Diabetes, seizures, and hypertension. Onset Date: 07/25/21 Duration: Day(s):, Constant Location: Reports: Back Quality: Reports: Sharp Improves with: Reports: None Worsens with: Reports: Movement Associated Symptoms: Reports: No Other Symptoms Lower Back Pain Score (Numeric/FACES): 8 Right Groin Pain Score (Numeric/FACES): 8 - Related Data Allergies Allergy/AdvReac Type Severity Reaction Status Date / Time No Known Allergies Allergy Verified 06/22/21 19:00 Home Meds: Home Meds Aspirin [Adult Low Dose Aspirin EC] 81 mg PO DAILY 10/01/13 [History] Nitroglycerin [Nitrostat] 0.4 mg SL .[id number] PRN 04/14/14 [History] metFORMIN HCl [Metformin HCl] 500 mg PO WITHBREAKFAST 01/14/16 [History] Acetaminophen [Acetaminophen Extra Strength] 500 mg PO Q6H PRN 05/18/19 [History] Albuterol [Proventil HFA] 2 puff INH Q6H PRN 05/18/19 [History] Metoprolol Tartrate [Lopressor] 25 mg PO BID 05/18/19 [History] amLODIPine Besylate [Norvasc] 10 mg PO DAILY 05/18/19 [History] hydroCHLOROthiazide [Hydrochlorothiazide] 25 mg PO DAILY 05/18/19 [History] levETIRAcetam [Keppra] 1,000 mg PO BID 05/18/19 [History] lisinopriL [Zestril] 40 mg PO DAILY 05/18/19 [History] Insulin Detemir [Levemir] 44 unit SUBCUT BID 06/02/21 [History] Past Medical History HEENT History: Reports: None Cardiovascular History: Reports: CAD, High Cholesterol, Hypertension Other Cardiovascular History: patient poor historian. unknown type of cardiac history or why is on medications. states Nitro was given to him to control his seizures Other Respiratory History: patient denies history but has Albuterol inhaler on old med list and state that he still takes it once a day Gastrointestinal History: Reports: Other (See Below) Other Gastrointestinal History: chronic nausea Genitourinary History: Reports: None Musculoskeletal History: Reports: None Neurological History: Reports: Seizure Psychiatric History: Reports: None Endocrine/Metabolic History: Reports: Diabetes, Type II Other Endocrine/Metabolic History: patient states is a diabetic but takes no medications for this. "they gave me the little jar of nitro" Hematologic History: Reports: None Immunologic History: Reports: None Oncologic (Cancer) History: Reports: None Dermatologic History: Reports: Cellulitis Other Dermatologic History: palm of left hand and cellulitis - Infectious Disease History Infectious Disease History: Reports: Chicken Pox Other Infectious Disease History: patient is a poor historian - Past Surgical History Head Surgeries/Procedures: Reports: None HEENT Surgical History: Reports: None Cardiovascular Surgical History: Reports: Percutaneous Transluminal Angioplasty Social & Family History - Family History Family Medical History: No Pertinent Family History - Tobacco Use Tobacco Use Status *Q: Current Every Day Tobacco User Years of Tobacco use: 3 Packs/Tins Daily: 0.5 - Caffeine Use Caffeine Use: Reports: None - Alcohol Use Alcohol Use History: Yes Date/Time of Last Drink Comment: "Five years ago" - Recreational Drug Use Recreational Drug Use: No - Living Situation & Occupation Living situation: Reports: Single Occupation: Disabled Social History Comment: Son found patient in house on ground, called ambulance ED ROS GENERAL - Review of Systems Review Of Systems: See Below Constitutional: Reports: No Symptoms HEENT: Reports: No Symptoms Respiratory: Reports: No Symptoms Cardiovascular: Reports: No Symptoms Endocrine: Reports: No Symptoms GI/Abdominal: Reports: Abdominal Pain (Umbilical hernia) : Reports: No Symptoms Musculoskeletal: Reports: Back Pain Skin: Reports: No Symptoms. Denies: Wound Neurological: Reports: No Symptoms ED EXAM,LOWER BACK PAIN/INJURY - Physical Exam Exam: See Below Text/Narrative:: Tachycardic, Febrile. Dried urine on underwear. Exam Limited By: No Limitations General Appearance: Alert (AOx4), Mild Distress, Obese Eye Exam: Bilateral Eye: EOMI, PERRL Ears: Normal TMs Throat/Mouth: Normal Inspection, No Airway Compromise Head: Atraumatic, Normocephalic Neck: Normal Inspection, Supple Respiratory/Chest: No Respiratory Distress, Wheezing. No: No Accessory Muscle Use, Crackles, Rhonchi Cardiovascular: No Murmur (Bounding peripheral pulses ), Tachycardia GI/Abdominal: Soft, Hernia (Soft and reducible. Flesh colored without dusky or erythemy overlying. ), Hepatomegaly (Male) Exam: No Hernia (Tender in right inguinal fold. ) Extremities: Normal Inspection, Increased Warmth (Left leg increased warmth compared to right. No erythematous or mottled. No open sores, thickened indurated skin on posterior lower calf). No: Pedal Edema Neurological: Alert, Normal Mood/Affect, Normal Dorsiflexion, CN II-XII Intact, Normal Plantar Flexion, No Motor/Sensory Deficits (Demonsrates lifting right and left leg straight off bed ) Psychiatric: Normal Affect Skin Exam: Warm, Dry. No: Diaphoretic, Jaundice Front/Back Body Diagram: 1 - Site of dark indurated skin Course - Radiology Interpretation CT Results Date: 07/28/21 CT Results Time: 06:59 (Per ED provider review of images: Bony osteophyte to lumbar body, umbilical hernia with stool from bowel (Coronal view) ) - Re-Assessments/Exams Free Text/Narrative Re-Assessment/Exam: 07/28/21 08:47 Sepsis work-up with Vanc/Zosyn empiric initiated for vitals and exam concerning for infection. CMP shows elevated anion gap with BiCarb of 21. With patient report of lying on ground for >24 hours, concern for development of DKA. Serum ketones and venous pH ordered. CXR concerning for R middle lobe consolidation, report pending. 07/28/21 08:54 Patient self-administered 1000mg Keppra. Patient reports his dosing is 4x a day. Ketones negative. Lipase wnl. CT pelvis and abdomen reports reviewed, no acute changes in bone or soft tissues. 07/28/21 09:17 Lactic acid 2.4. Free Text/Narrative Re-Assessment/Exam: 07/28/21 09:36 COVID and Influenza negative. ABG collected. Admission to [facility] initiated. Departure - Departure Time of Disposition: 09:34 (Sign out to Dr. Jackson for admission ) Disposition: Admitted As Inpatient 67 Condition: Fair Clinical Impression: Leukocytosis, Hernia of abdominal cavity Fever Qualifiers: Fever type: unspecified Qualified Code(s): R50.9 - Fever, unspecified Diabetes Qualifiers: Diabetes mellitus type: type 2 Diabetes mellitus complication status: without complication Qualified Code(s): E11.9 - Type 2 diabetes mellitus without complications - Discharge Information *PRESCRIPTION DRUG MONITORING PROGRAM REVIEWED*: Not Applicable *COPY OF PRESCRIPTION DRUG MONITORING REPORT IN PATIENT CHAS: Not Applicable Sepsis Event Note (ED) - Evaluation Sepsis Screening Result: No Definite Risk Current Stage of Sepsis: Sepsis - Focused Exam Sepsis Event Note Statement: Focused Sepsis Exam Completed Date Exam was Performed: 07/28/21 Time Exam was Performed: 08:00 <Joezf Willingham - Last Filed: 07/28/21 12:51> Course - Radiology Interpretation Free Text/Narrative:: [facility] Final Radiology Report Call: [phone] assistance Online chat: [email or web address] Name: SON GALLOWAY Age: 65Years M Date: 07/28/2021 SSN: -- : 1955 Study: CR CHEST 1V FRONTAL Requesting Physician: Neli Lopez Images: 1 Addl Studies: Provided Clinical History: Sepsis work up Contrast: Contrast Medium: Contrast Amount: Contrast Method: CONFIDENTIALITY STATEMENT This report is intended only for use by the referring physician, and only in accordance with law. If you received this in error, call [phone]. Page 1 of 1 PROCEDURE INFORMATION: Exam: XR Chest Exam date and time: 07/28/2021 8:12 AM Age: 65 years old Clinical indication: Sepsis work up TECHNIQUE: Imaging protocol: XR of the chest. Views: 1 view. COMPARISON: CR Chest 1V Frontal 06/02/2021 5:43 PM FINDINGS: Lungs: Poor inspiration. Decreased lung volumes. No pneumonia or pulmonary edema. Pleural spaces: No pleural effusion or pneumothorax. Heart/Mediastinum: The cardiac silhouette is not enlarged. The mediastinal contours are normal. Bones/joints: No acute osseous abnormality. Soft tissues: Bilateral epicardial fat pads. IMPRESSION: No acute finding. Thank you for allowing us to participate in the care of your patient. Dictated and Authenticated by: Brett Mitchell MD 07/28/2021 9:06 AM Central Time ([place] & [place]) [facility] Final Radiology Report Call: [phone] assistance Online chat: [email or web address] Name: SON GALLOWAY Age: 65Years M Date: 07/28/2021 SSN: -- : 1955 Study: CT LUMBAR SPINE WO CONT Requesting Physician: ART LEYVA Images: [id number] Addl Studies: Provided Clinical History: fall, agin tonight. pain Contrast: Without Contrast Medium: Contrast Amount: Contrast Method: Page 1 of 2 PROCEDURE INFORMATION: Exam: CT Lumbar Spine Without Contrast Exam date and time: 07/28/2021 6:59 AM Age: 65 years old Clinical indication: Other: fall, again tonight. Pain; Additional info: fall, agin tonight. Pain TECHNIQUE: Imaging protocol: Computed tomography images of the lumbar spine without contrast. Radiation optimization: All CT scans at this facility use at least one of these dose optimization techniques: automated exposure control; mA and/or kV adjustment per patient size (includes targeted exams where dose is matched to clinical indication); or iterative reconstruc tion. COMPARISON: CT Abdomen Pelvis w Cont 04/26/2021 4:39 AM FINDINGS: Vertebrae: There is minimal grade 1 L5-S1 spondylolisthesis. There is multilevel moderate to severe facet arthropathy at L4-L5 and L5-S1. There is multilevel disc degenerative disease and enthesopathy, but currently with no visible acute disc herniation or limiting stenosis. Bladder: There is bladder wall thickening. Soft tissues: Unremarkable. IMPRESSION: No acute lumbar spine fracture. Thank you for allowing us to participate in the care of your patient. Dictated and Authenticated by: Dat Tejada MD SON GALLOWAY | Final Radiology Report CONFIDENTIALITY STATEMENT This report is intended only for use by the referring physician, and only in accordance with law. If you received this in error, call [phone]. Page 2 of 2 07/28/2021 8:22 AM Central Time ( & [place]) [facility] Final Radiology Report Call: [phone] assistance Online chat: [email or web address] Name: SON GALLOWAY Age: 65Years M Date: 07/28/2021 SSN: -- : 1955 Study: CT PELVIS WO CONT Requesting Physician: ART LEYVA Images: [id number] Addl Studies: Provided Clinical History: fall Contrast: Without Contrast Medium: Contrast Amount: Contrast Method: CONFIDENTIALITY STATEMENT This report is intended only for use by the referring physician, and only in accordance with law. If you received this in error, call [phone]. Page 1 of 1 PROCEDURE INFORMATION: Exam: CT Pelvis Without Contrast; Skeletal Exam date and time: 07/28/2021 6:59 AM Age: 65 years old Clinical indication: Other: Fall, pain TECHNIQUE: Imaging protocol: Computed tomography images of the pelvis without contrast. Exam focused on the skeletal structures. Radiation optimization: All CT scans at this facility use at least one of these dose optimization techniques: automated exposure control; mA and/or kV adjustment per patient size (includes targeted exams where dose is matched to clinical indication); or iterative reconstruction. COMPARISON: CT Abdomen Pelvis w Cont 04/26/2021 4:39 AM FINDINGS: Bones/joints: There is no acute fracture of the bony pelvis either hip or proximal femur, nor the visualized lower lumbosacral spine. Soft tissues: There is a lower midline ventral abdominal wall hernia containing fat with a 6.9 cm neck. There is transverse colon bordering on the defect but no josr bowel containing hernia is seen. IMPRESSION: No acute fracture of the bony pelvis either hip or proximal femur. Thank you for allowing us to participate in the care of your patient. Dictated and Authenticated by: Dat Tejada MD 07/28/2021 8:21 AM Central Time ([place] & [place]) - Re-Assessments/Exams Free Text/Narrative Re-Assessment/Exam: 07/28/21 I saw and evaluated the patient. Discussed with resident and agree with residents findings and plan as documented in the residents note. <Art Leyva Kel - Last Filed: 07/31/21 02:53> ED HPI GENERAL MEDICAL PROBLEM - General Source of Information: Reports: Patient History Limitations: Reports: No Limitations - History of Present Illness INITIAL COMMENTS - FREE TEXT/NARRATIVE: ED via [facility] with c/o low back pain and frequent falling. has not taken anything recently for pain, Reports being seen in clinic for same but unsure what day it was. Denied injury with fall. Noting just more difficulty getting up. No reported fevers, No head injury, No nausea or vomiting. ED ROS GENERAL - Review of Systems Review Of Systems: See Below Constitutional: Reports: Weakness HEENT: Reports: Glasses Respiratory: Reports: No Symptoms Cardiovascular: Reports: No Symptoms GI/Abdominal: Reports: No Symptoms Musculoskeletal: Reports: Back Pain Neurological: Reports: Difficulty Walking ED EXAM,LOWER BACK PAIN/INJURY - Physical Exam Exam: See Below Exam Limited By: No Limitations General Appearance: Alert, Mild Distress Ears: Normal External Exam, Hearing Loss Nose: Normal Inspection Throat/Mouth: Normal Inspection Head: Atraumatic, Normocephalic Neck: Normal Inspection Respiratory/Chest: No Respiratory Distress Cardiovascular: Normal Peripheral Pulses GI/Abdominal: Soft Back Exam: Muscle Spasm, Paraspinal Tenderness. No: Full Range of Motion Extremities: Pedal Edema Neurological: Alert, Normal Dorsiflexion, Oriented x 3, Other (poor historian, confused recent events). No: Normal Gait Psychiatric: Normal Affect Skin Exam: Warm, Dry, Intact Course - Vital Signs Last Recorded V/S: Last Vital Signs Temp 98.4 F 07/30/21 23:53 Pulse 87 07/30/21 23:53 Resp 18 07/30/21 23:53 BP 120/75 07/30/21 20:31 Pulse Ox 97 07/30/21 23:53 - Orders/Labs/Meds Orders: Medication Orders Acetaminophen (Acetaminophen 325 Mg Tab) 650 mg PO Q4H PRN PRN Reason: Pain (Mild 1-3)/fever Albuterol (Albuterol 6.7 Gm Inhaler) 0 gm INH Q6H PRN PRN Reason: Shortness of Breath Albuterol/Ipratropium (Albuterol/Ipratropium 3.0-0.5 Mg/3 Ml Neb Soln) 3 ml NEB Q4H PRN PRN Reason: shortness of breath/wheezing Amlodipine Besylate (Amlodipine 5 Mg Tab) 10 mg PO DAILY [facility] Last Admin: 07/30/21 08:34 Dose: 10 mg Documented by: Admin: 07/29/21 09:07 Dose: 10 mg Documented by: Admin: 07/28/21 14:03 Dose: Not Given Documented by: VICTORINA Aspirin (Aspirin 81 Mg Tab.Ec) 81 mg PO DAILY [facility] Last Admin: 07/30/21 08:34 Dose: 81 mg Documented by: Admin: 07/29/21 09:05 Dose: 81 mg Documented by: Admin: 07/28/21 13:16 Dose: 81 mg Documented by: VICTORINA Dextrose/Water (50% Dextrose In Water 50 Ml Syringe) 50 ml IVPUSH Q15M PRN PRN Reason: Hypoglycemia Enoxaparin Sodium (Enoxaparin 40 Mg/0.4 Ml Syringe) 40 mg SUBCUT DAILY [facility] Last Admin: 07/30/21 08:36 Dose: 40 mg Documented by: Admin: 07/29/21 09:04 Dose: 40 mg Documented by: Admin: 07/28/21 12:10 Dose: 40 mg Documented by: VICTORINA Glucagon (Glucagon,Human Recombinant 1 Mg Vial) 1 mg IM Q15M PRN PRN Reason: Hypoglycemia Hydralazine HCl (Hydralazine 20 Mg/Ml Sdv) 10 mg IVPUSH Q4H PRN PRN Reason: Hypertension Lactated Ringer's (Ringers, Lactated) 1,000 mls @ 125 mls/hr IV ASDIRECTED [facility] Last Admin: 07/30/21 17:27 Dose: 125 mls/hr Documented by: Infusion: 07/30/21 08:19 Dose: 125 mls/hr Documented by: Admin: 07/30/21 00:19 Dose: 125 mls/hr Documented by: Infusion: 07/29/21 19:03 Dose: 125 mls/hr Documented by: Admin: 07/29/21 11:03 Dose: 125 mls/hr Documented by: Infusion: 07/29/21 09:21 Dose: 125 mls/hr Documented by: Admin: 07/29/21 01:21 [employer] Dose: 125 mls/hr Documented by: MARIA R Infusion: 07/28/21 20:13 Dose: 125 mls/hr Documented by: MARIA R Admin: 07/28/21 12:13 Dose: 125 mls/hr Documented by: VICTORINA Piperacillin Sod/Tazobactam (Sod 3.375 gm/ Sodium Chloride) 100 mls @ 200 mls/hr IV Q6H DORINA [facility] Admin: 07/31/21 01:59 Dose: 200 mls/hr Documented by: Infusion: 07/30/21 20:06 Dose: 200 mls/hr Documented by: Admin: 07/30/21 19:36 Dose: 200 mls/hr Documented by: Infusion: 07/30/21 14:00 Dose: 200 mls/hr Documented by: Admin: 07/30/21 13:30 Dose: 200 mls/hr Documented by: Infusion: 07/30/21 08:04 Dose: 200 mls/hr Documented by: Admin: 07/30/21 07:34 Dose: 200 mls/hr Documented by: Infusion: 07/30/21 01:56 Dose: 200 mls/hr Documented by: Admin: 07/30/21 01:26 Dose: 200 mls/hr Documented by: Infusion: 07/29/21 20:14 Dose: 200 mls/hr Documented by: Admin: 07/29/21 19:44 Dose: 200 mls/hr Documented by: Infusion: 07/29/21 15:39 Dose: 200 mls/hr Documented by: Admin: 07/29/21 15:09 Dose: 200 mls/hr Documented by: Infusion: 07/29/21 09:38 Dose: 200 mls/hr Documented by: Admin: 07/29/21 09:08 Dose: 200 mls/hr Documented by: Infusion: 07/29/21 02:10 Dose: 200 mls/hr Documented by: Admin: 07/29/21 01:40 [employer]IVE Dose: 200 mls/hr Documented by: MARIA R Infusion: 07/28/21 19:59 Dose: 200 mls/hr Documented by: MARIA R Admin: 07/28/21 19:29 Dose: 200 mls/hr Documented by: MARIA R Infusion: 07/28/21 13:47 Dose: 200 mls/hr Documented by: MARIA R Admin: 07/28/21 13:17 Dose: 200 mls/hr Documented by: VICTORINA Sodium Chloride (Normal Saline) 1,000 mls @ 75 mls/hr IV ASDIRECTED [facility] Vancomycin HCl 1.25 gm/ Sodium (Chloride) 250 mls @ 166.667 mls/hr IV Q12H [facility] Last Admin: 07/30/21 21:17 Dose: 166.667 mls/hr Documented by: Admin: 07/30/21 09:54 Dose: 166.667 mls/hr Documented by: TONJA Influenza Virus Vaccine (Pharmacy To Dose - Influenza Vaccine) 1 each IM DAILY [facility] Last Admin: 07/30/21 08:44 Dose: Not Given Documented by: TONJA Insulin Glargine (Insulin Glarg,Human.Rec.Analog 100 Unit/Ml) 30 unit SUBCUT BID [facility] Last Admin: 07/30/21 20:36 Dose: 30 units Documented by: Admin: 07/30/21 08:41 Dose: 30 units Documented by: Admin: 07/29/21 21:36 Dose: 30 units Documented by: Admin: 07/29/21 09:03 Dose: 30 units Documented by: Admin: 07/28/21 20:49 Dose: 30 units Documented by: MARIA R Admin: 07/28/21 12:09 Dose: 30 units Documented by: VICTORINA Insulin Human Lispro (Insulin Lispro 100 Units/Ml 3 Ml Vial) 0 unit SUBCUT WITHMEALSANDBED [facility]; Protocol Last Admin: 07/30/21 20:36 Dose: 4 units Documented by: Admin: 07/30/21 17:30 Dose: 4 units Documented by: Admin: 07/30/21 12:19 Dose: 4 units Documented by: Admin: 07/30/21 08:43 Dose: 2 units Documented by: Admin: 07/29/21 21:37 Dose: 4 units Documented by: Admin: 07/29/21 18:15 Dose: 4 units Documented by: Admin: 07/29/21 13:08 Dose: 4 units Documented by: Admin: 07/29/21 09:02 Dose: 4 units Documented by: Admin: 07/28/21 20:50 Dose: 4 units Documented by: MARIA R Admin: 07/28/21 17:30 Dose: 10 units Documented by: Admin: 07/28/21 12:10 Dose: 8 units Documented by: VICTORINA Levetiracetam (Levetiracetam 500 Mg Tab) 1,000 mg PO BID [facility] Last Admin: 07/30/21 20:31 Dose: 1,000 mg Documented by: Admin: 07/30/21 08:34 Dose: 1,000 mg Documented by: Admin: 07/29/21 21:35 Dose: 1,000 mg Documented by: Admin: 07/29/21 09:06 Dose: 1,000 mg Documented by: Admin: 07/28/21 20:42 Dose: 1,000 mg Documented by: MARIA R Admin: 07/28/21 13:16 Dose: 1,000 mg Documented by: VICTORINA Metoprolol Tartrate (Metoprolol Tartrate 25 Mg Tab) 25 mg PO BID [facility] Last Admin: 07/30/21 20:31 Dose: 25 mg Documented by: Admin: 07/30/21 08:34 Dose: 25 mg Documented by: Admin: 07/29/21 21:36 Dose: 25 mg Documented by: Admin: 07/29/21 09:07 Dose: 25 mg Documented by: Admin: 07/28/21 20:43 Dose: 25 mg Documented by: MARIA R Admin: 07/28/21 14:02 Dose: Not Given Documented by: VICTORINA Miscellaneous Information (Remove Patch *Nicotine*) 1 ea TRDERM DAILY [facility] Last Admin: 07/30/21 08:38 Dose: 1 ea Documented by: TONJA Morphine Sulfate (Morphine 2 Mg/Ml Syringe) 2 mg IVPUSH Q4H PRN PRN Reason: Pain (severe 7-10) Nicotine (Nicotine 14 Mg/24 Hr Patch) 14 mg TRDERM DAILY [facility] Last Admin: 07/30/21 08:34 Dose: 14 mg Documented by: Admin: 07/29/21 09:04 Dose: 14 mg Documented by: MARKIE Ondansetron HCl (Ondansetron 4 Mg/2 Ml Sdv) 4 mg IVPUSH Q6H PRN PRN Reason: Nausea/Vomiting Last Admin: 07/29/21 11:36 Dose: 4 mg Documented by: MARKIE Oxycodone HCl (Oxycodone 5 Mg Tab) 5 mg PO Q4H PRN PRN Reason: Pain (moderate 4-6) Last Admin: 07/30/21 19:40 Dose: 5 mg Documented by: Admin: 07/29/21 02:19 Dose: 5 mg Documented by: MARIA R Admin: 07/28/21 20:42 Dose: 5 mg Documented by: MARIA R Admin: 07/28/21 12:08 Dose: 5 mg Documented by: VICTORINA Sodium Chloride (Sodium Chloride 0.9% 10 Ml Syringe) 10 ml FLUSH ASDIRECTED PRN PRN Reason: Keep Vein Open Vancomycin HCl (Pharmacy To Dose - Vancomycin) 1 dose .XX ASDIRECTED [facility] Labs: Laboratory Tests 07/28/21 07/28/21 07/28/21 Range/Units 06:55 07:10 07:10 WBC 27.1 H* (5.0-10.0) 10^3/uL RBC 4.95 (4.6-6.2) 10^6/uL Hgb 14.0 (14.0-18.0) g/dL Hct 41.8 (40.0-54.0) % MCV 84.4 (80-100) fL MCH 28.3 (27.0-34.0) pg MCHC 33.5 (33.0-35.0) g/dL Plt Count 191 (150-450) 10^3/uL Neut % (Auto) 88.1 H (42.2-75.2) % Lymph % (Auto) 4.1 L (20.5-50.1) % Scurry % (Auto) 7.6 (2-8) % Eos % (Auto) 0.1 L (1.0-3.0) % Baso % (Auto) 0.1 (0.0-1.0) % Add Manual Diff Yes Neutrophils % (Manual) 79 H (42-75) % Band Neutrophils % 7 % Lymphocytes % (Manual) 6 L (20-50) % Monocytes % (Manual) 8 (2-8) % VBG pH (7.31-7.41) Sodium 133 L (136-145) mmol/L Potassium 4.4 (3.5-5.1) mmol/L Chloride 99 (98-107) mmol/L Carbon Dioxide 21 (21-32) mmol/L Anion Gap 17.4 H (7-13) mEq/L BUN 24 H (7-18) mg/dL Creatinine 1.23 (0.70-1.30) mg/dL Est Cr Clr Drug Dosing 68.57 mL/min Estimated GFR (MDRD) 59 BUN/Creatinine Ratio 19.5 (No establ ref range) Glucose 309 H (70-99) mg/dL POC Glucose 300 H (70-99) mg/dL Lactic Acid (0.4-2.0) mmol/L Calcium 8.8 (8.5-10.1) mg/dL Total Bilirubin 0.6 (0.2-1.0) mg/dL AST 13 L (15-37) U/L ALT 21 (16-63) U/L Alkaline Phosphatase 108 (46-116) U/L Total Protein 7.7 (6.4-8.2) g/dL Albumin 3.3 L (3.4-5.0) g/dL Globulin 4.4 Albumin/Globulin Ratio 0.75 Lipase (73-393) U/L Urine Color (YELLOW) Urine Appearance (CLEAR) Urine pH (5.0-9.0) Ur Specific [place] (1.005-1.030) Urine Protein (NEGATIVE) Urine Glucose (UA) (NEGATIVE) Urine Ketones (NEGATIVE) Urine Occult Blood (NEGATIVE) Urine Nitrite (NEGATIVE) Urine Bilirubin (NEGATIVE) Urine Urobilinogen (0.2-1.0) mg/dL Ur Leukocyte Esterase (NEGATIVE) Urine RBC (0-5) /HPF Urine WBC (0-5/HPF) /HPF Ur Epithelial Cells (NOT SEEN) /HPF Urine Bacteria (0-FEW/HPF) /HPF Ethyl Alcohol < 3 (0) mg/dL Ketones Influenza Type A RNA (NEGATIVE) Influenza Type B RNA (NEGATIVE) SARS-CoV-2 RNA (BETTINA) (NEGATIVE) 07/28/21 07/28/21 07/28/21 Range/Units 07:10 07:10 08:07 WBC (5.0-10.0) 10^3/uL RBC (4.6-6.2) 10^6/uL Hgb (14.0-18.0) g/dL Hct (40.0-54.0) % MCV (80-100) fL MCH (27.0-34.0) pg MCHC (33.0-35.0) g/dL Plt Count (150-450) 10^3/uL Neut % (Auto) (42.2-75.2) % Lymph % (Auto) (20.5-50.1) % Scurry % (Auto) (2-8) % Eos % (Auto) (1.0-3.0) % Baso % (Auto) (0.0-1.0) % Add Manual Diff Neutrophils % (Manual) (42-75) % Band Neutrophils % % Lymphocytes % (Manual) (20-50) % Monocytes % (Manual) (2-8) % VBG pH 7.41 (7.31-7.41) Sodium (136-145) mmol/L Potassium (3.5-5.1) mmol/L Chloride (98-107) mmol/L Carbon Dioxide (21-32) mmol/L Anion Gap (7-13) mEq/L BUN (7-18) mg/dL Creatinine (0.70-1.30) mg/dL Est Cr Clr Drug Dosing mL/min Estimated GFR (MDRD) BUN/Creatinine Ratio (No establ ref range) Glucose (70-99) mg/dL POC Glucose (70-99) mg/dL Lactic Acid (0.4-2.0) mmol/L Calcium (8.5-10.1) mg/dL Total Bilirubin (0.2-1.0) mg/dL AST (15-37) U/L ALT (16-63) U/L Alkaline Phosphatase (46-116) U/L Total Protein (6.4-8.2) g/dL Albumin (3.4-5.0) g/dL Globulin Albumin/Globulin Ratio Lipase 91 (73-393) U/L Urine Color (YELLOW) Urine Appearance (CLEAR) Urine pH (5.0-9.0) Ur Specific [place] (1.005-1.030) Urine Protein (NEGATIVE) Urine Glucose (UA) (NEGATIVE) Urine Ketones (NEGATIVE) Urine Occult Blood (NEGATIVE) Urine Nitrite (NEGATIVE) Urine Bilirubin (NEGATIVE) Urine Urobilinogen (0.2-1.0) mg/dL Ur Leukocyte Esterase (NEGATIVE) Urine RBC (0-5) /HPF Urine WBC (0-5/HPF) /HPF Ur Epithelial Cells (NOT SEEN) /HPF Urine Bacteria (0-FEW/HPF) /HPF Ethyl Alcohol (0) mg/dL Ketones Negative Influenza Type A RNA (NEGATIVE) Influenza Type B RNA (NEGATIVE) SARS-CoV-2 RNA (BETTINA) (NEGATIVE) 07/28/21 07/28/21 07/28/21 Range/Units 08:27 08:40 08:55 WBC (5.0-10.0) 10^3/uL RBC (4.6-6.2) 10^6/uL Hgb (14.0-18.0) g/dL Hct (40.0-54.0) % MCV (80-100) fL MCH (27.0-34.0) pg MCHC (33.0-35.0) g/dL Plt Count (150-450) 10^3/uL Neut % (Auto) (42.2-75.2) % Lymph % (Auto) (20.5-50.1) % Scurry % (Auto) (2-8) % Eos % (Auto) (1.0-3.0) % Baso % (Auto) (0.0-1.0) % Add Manual Diff Neutrophils % (Manual) (42-75) % Band Neutrophils % % Lymphocytes % (Manual) (20-50) % Monocytes % (Manual) (2-8) % VBG pH (7.31-7.41) Sodium (136-145) mmol/L Potassium (3.5-5.1) mmol/L Chloride (98-107) mmol/L Carbon Dioxide (21-32) mmol/L Anion Gap (7-13) mEq/L BUN (7-18) mg/dL Creatinine (0.70-1.30) mg/dL Est Cr Clr Drug Dosing mL/min Estimated GFR (MDRD) BUN/Creatinine Ratio (No establ ref range) Glucose (70-99) mg/dL POC Glucose (70-99) mg/dL Lactic Acid 2.4 H* (0.4-2.0) mmol/L Calcium (8.5-10.1) mg/dL Total Bilirubin (0.2-1.0) mg/dL AST (15-37) U/L ALT (16-63) U/L Alkaline Phosphatase (46-116) U/L Total Protein (6.4-8.2) g/dL Albumin (3.4-5.0) g/dL Globulin Albumin/Globulin Ratio Lipase (73-393) U/L Urine Color Yellow (YELLOW) Urine Appearance Clear (CLEAR) Urine pH 5.5 (5.0-9.0) Ur Specific [place] >= 1.030 (1.005-1.030) Urine Protein 100 H (NEGATIVE) Urine Glucose (UA) >=1000 H (NEGATIVE) Urine Ketones Negative (NEGATIVE) Urine Occult Blood Trace-intact H (NEGATIVE) Urine Nitrite Negative (NEGATIVE) Urine Bilirubin Negative (NEGATIVE) Urine Urobilinogen 0.2 (0.2-1.0) mg/dL Ur Leukocyte Esterase Negative (NEGATIVE) Urine RBC 0-5 (0-5) /HPF Urine WBC 0-5 (0-5/HPF) /HPF Ur Epithelial Cells Few (NOT SEEN) /HPF Urine Bacteria Few (0-FEW/HPF) /HPF Ethyl Alcohol (0) mg/dL Ketones Influenza Type A RNA Negative (NEGATIVE) Influenza Type B RNA Negative (NEGATIVE) SARS-CoV-2 RNA (BETTINA) Negative (NEGATIVE) 07/28/21 Range/Units 09:12 WBC (5.0-10.0) 10^3/uL RBC (4.6-6.2) 10^6/uL Hgb (14.0-18.0) g/dL Hct (40.0-54.0) % MCV (80-100) fL MCH (27.0-34.0) pg MCHC (33.0-35.0) g/dL Plt Count (150-450) 10^3/uL Neut % (Auto) (42.2-75.2) % Lymph % (Auto) (20.5-50.1) % [place]urry % (Auto) (2-8) % Eos % (Auto) (1.0-3.0) % Baso % (Auto) (0.0-1.0) % Add Manual Diff Neutrophils % (Manual) (42-75) % Band Neutrophils % % Lymphocytes % (Manual) (20-50) % Monocytes % (Manual) (2-8) % VBG pH (7.31-7.41) Sodium (136-145) mmol/L Potassium (3.5-5.1) mmol/L Chloride (98-107) mmol/L Carbon Dioxide (21-32) mmol/L Anion Gap (7-13) mEq/L BUN (7-18) mg/dL Creatinine (0.70-1.30) mg/dL Est Cr Clr Drug Dosing mL/min Estimated GFR (MDRD) BUN/Creatinine Ratio (No establ ref range) Glucose (70-99) mg/dL POC Glucose 368 H (70-99) mg/dL Lactic Acid (0.4-2.0) mmol/L Calcium (8.5-10.1) mg/dL Total Bilirubin (0.2-1.0) mg/dL AST (15-37) U/L ALT (16-63) U/L Alkaline Phosphatase (46-116) U/L Total Protein (6.4-8.2) g/dL Albumin (3.4-5.0) g/dL Globulin Albumin/Globulin Ratio Lipase (73-393) U/L Urine Color (YELLOW) Urine Appearance (CLEAR) Urine pH (5.0-9.0) Ur Specific [place] (1.005-1.030) Urine Protein (NEGATIVE) Urine Glucose (UA) (NEGATIVE) Urine Ketones (NEGATIVE) Urine Occult Blood (NEGATIVE) Urine Nitrite (NEGATIVE) Urine Bilirubin (NEGATIVE) Urine Urobilinogen (0.2-1.0) mg/dL Ur Leukocyte Esterase (NEGATIVE) Urine RBC (0-5) /HPF Urine WBC (0-5/HPF) /HPF Ur Epithelial Cells (NOT SEEN) /HPF Urine Bacteria (0-FEW/HPF) /HPF Ethyl Alcohol (0) mg/dL Ketones Influenza Type A RNA (NEGATIVE) Influenza Type B RNA (NEGATIVE) SARS-CoV-2 RNA (BETTINA) (NEGATIVE) Meds: Medications Generic Name Dose Route Start Last Admin Trade Name Freq PRN Reason Stop Dose Admin Acetaminophen 650 mg 07/29/21 17:01 Acetaminophen 325 Mg Tab PO Q4H PRN Pain (Mild 1-3)/fever Albuterol 0 gm 07/28/21 11:45 Albuterol 6.7 Gm Inhaler INH Q6H PRN Shortness of Breath Albuterol/Ipratropium 3 ml 07/28/21 11:34 Albuterol/Ipratropium 3.0-0.5 Mg/3 Ml Neb Soln NEB Q4H PRN shortness of breath/wheezing Amlodipine Besylate 10 mg 07/28/21 12:00 07/30/21 08:34 Amlodipine 5 Mg Tab PO 10 mg DAILY DORINA Administration Aspirin 81 mg 07/28/21 12:00 07/30/21 08:34 Aspirin 81 Mg Tab.Ec PO 81 mg DAILY DORINA Administration Dextrose/Water 50 ml 07/28/21 11:47 50% Dextrose In Water 50 Ml Syringe IVPUSH Q15M PRN Hypoglycemia Enoxaparin Sodium 40 mg 07/28/21 11:45 07/30/21 08:36 Enoxaparin 40 Mg/0.4 Ml Syringe SUBCUT 40 mg DAILY DORINA Administration Glucagon 1 mg 07/28/21 11:47 Glucagon,Human Recombinant 1 Mg Vial IM Q15M PRN Hypoglycemia Hydralazine HCl 10 mg 07/28/21 11:45 Hydralazine 20 Mg/Ml Sdv IVPUSH Q4H PRN Hypertension Lactated Ringer's 1,000 mls @ 125 mls/hr 07/28/21 11:45 07/30/21 17:27 Ringers, Lactated IV 125 mls/hr ASDIRECTED DORINA Administration Piperacillin Sod/Tazobactam 100 mls @ 200 mls/hr 07/28/21 14:00 07/31/21 01:59 Sod 3.375 gm/ Sodium Chloride IV 200 mls/hr Q6H DORINA Administration Sodium Chloride 1,000 mls @ 75 mls/hr 07/30/21 08:30 Normal Saline IV ASDIRECTED [facility] Vancomycin HCl 1.25 gm/ Sodium 250 mls @ 166.667 mls/hr 07/30/21 10:00 07/30/21 21:17 Chloride IV 166.667 mls/hr Q12H DORINA Administration Influenza Virus Vaccine 1 each 07/30/21 09:00 07/30/21 08:44 Pharmacy To Dose - Influenza Vaccine IM Not Given DAILY [facility] Insulin Glargine 30 unit 07/28/21 12:00 07/30/21 20:36 Insulin Glarg,Human.Rec.Analog 100 Unit/Ml SUBCUT 30 units BID DORINA Administration Insulin Human Lispro 0 unit 07/28/21 12:00 07/30/21 20:36 Insulin Lispro 100 Units/Ml 3 Ml Vial SUBCUT 4 units WITHMEALSANDBED [facility] Administration Protocol Levetiracetam 1,000 mg 07/28/21 12:00 07/30/21 20:31 Levetiracetam 500 Mg Tab PO 1,000 mg BID DORINA Administration Metoprolol Tartrate 25 mg 07/28/21 12:00 07/30/21 20:31 Metoprolol Tartrate 25 Mg Tab PO 25 mg BID DORINA Administration Miscellaneous Information 1 ea 07/30/21 09:00 07/30/21 08:38 Remove Patch *Nicotine* TRDERM 1 ea DAILY DORINA Administration Morphine Sulfate 2 mg 07/28/21 11:34 Morphine 2 Mg/Ml Syringe IVPUSH Q4H PRN Pain (severe 7-10) Nicotine 14 mg 07/29/21 09:00 07/30/21 08:34 Nicotine 14 Mg/24 Hr Patch TRDERM 14 mg DAILY [facility] Administration Ondansetron HCl 4 mg 07/28/21 11:34 07/29/21 11:36 Ondansetron 4 Mg/2 Ml Sdv IVPUSH 4 mg Q6H PRN Administration Nausea/Vomiting Oxycodone HCl 5 mg 07/28/21 11:34 07/30/21 19:40 Oxycodone 5 Mg Tab PO 5 mg Q4H PRN Administration Pain (moderate 4-6) Sodium Chloride 10 ml 07/30/21 09:46 Sodium Chloride 0.9% 10 Ml Syringe FLUSH ASDIRECTED PRN Keep Vein Open Vancomycin HCl 1 dose 07/29/21 09:00 Pharmacy To Dose - Vancomycin .XX ASDIRECTED DORINA Discontinued Medications Generic Name Dose Route Start Last Admin Trade Name Andreaq PRN Reason Stop Dose Admin Acetaminophen 650 mg 07/28/21 11:34 07/29/21 15:15 Acetaminophen 325 Mg Tab PO 650 mg Q6H PRN Administration Pain (Mild 1-3)/fever Dextrose/Water 50 ml 07/28/21 09:22 50% Dextrose In Water 50 Ml Syringe IVPUSH Q15M PRN Hypoglycemia Glucagon 1 mg 07/28/21 09:22 Glucagon,Human Recombinant 1 Mg Vial IM Q15M PRN Hypoglycemia Hydrochlorothiazide 25 mg 07/28/21 12:00 07/29/21 09:05 Hydrochlorothiazide 25 Mg Tab PO 25 mg DAILY DORINA Administration Sodium Chloride 1,000 mls @ 250 mls/hr 07/28/21 07:54 07/28/21 08:32 Normal Saline IV 07/28/21 11:53 250 mls/hr BOLUS ONE Administration Protocol Vancomycin HCl 2,500 gm/ 250 mls @ 167 mls/hr 07/28/21 07:54 07/28/21 09:18 Dextrose/Water IV 07/28/21 09:23 Not Given ONETIME ONE Piperacillin Sod/Tazobactam 100 mls @ 200 mls/hr 07/28/21 07:54 07/28/21 08:26 Sod 4.5 gm/ Sodium Chloride IV 07/28/21 08:23 200 mls/hr STAT ONE Administration Vancomycin HCl 1,500 mg/ 500 mls @ 333.333 mls/hr 07/28/21 08:31 07/28/21 09:17 Sodium Chloride IV 07/28/21 10:00 333.333 mls/hr ONETIME ONE Administration Vancomycin HCl 1.5 gm/ Sodium 250 mls @ 166.667 mls/hr 07/28/21 21:00 Chloride IV Q12H DORINA Piperacillin Sod/Tazobactam 100 mls @ 200 mls/hr 07/28/21 11:45 07/28/21 23:08 Sod 3.375 gm/ Sodium Chloride IV Not Given Q6H DORINA Sodium Chloride 1,000 mls @ 250 mls/hr 07/28/21 13:58 07/28/21 14:05 Normal Saline IV 07/28/21 17:57 250 mls/hr ONETIME ONE Administration Vancomycin HCl 300 mls @ 200 mls/hr 07/28/21 21:00 07/29/21 21:42 Vancomycin 1.5 Gm/300 Ml IV 200 mls/hr Q12H DORINA Administration Vancomycin HCl 1.5 gm/ Premix 300 mls @ 200 mls/hr 07/30/21 09:00 07/30/21 09 :54 IV Not Given Q12H DORINA Ibuprofen 200 mg 07/29/21 18:08 07/30/21 04:22 Ibuprofen 200 Mg Tab PO 200 mg Q8H PRN Administration Fever Insulin Human Regular 5 unit 07/28/21 09:22 07/28/21 12:21 Insulin Regular, Human 100 Units/Ml 3 Ml Vial IV 07/28/21 09:23 Not Given ONETIME ONE Lisinopril 40 mg 07/28/21 12:00 07/29/21 09:07 Lisinopril 20 Mg Tab PO 40 mg DAILY DORINA Administration Sodium Chloride 10 ml 07/28/21 07:54 Sodium Chloride 0.9% 10 Ml Syringe FLUSH ASDIRECTED PRN Keep Vein Open Departure - Departure Time of Disposition: 10:30 Condition: Good - Discharge Information *PRESCRIPTION DRUG MONITORING PROGRAM REVIEWED*: No *COPY OF PRESCRIPTION DRUG MONITORING REPORT IN PATIENT CHAS: No
--- NOTE | 2021-07-28 08:23 | CT ---
PROCEDURE INFORMATION: Exam: CT Lumbar Spine Without Contrast Exam date and time: 07/28/2021 6:59 AM Age: 65 years old Clinical indication: Other: Fall Friday, again tonight. Pain; Additional info: Fall Friday, agin tonight. Pain TECHNIQUE: Imaging protocol: Computed tomography images of the lumbar spine without contrast. Radiation optimization: All CT scans at this facility use at least one of these dose optimization techniques: automated exposure control; mA and/or kV adjustment per patient size (includes targeted exams where dose is matched to clinical indication); or iterative reconstruction. COMPARISON: CT Abdomen Pelvis w Cont 04/26/2021 4:39 AM FINDINGS: Vertebrae: There is minimal grade 1 L5-S1 spondylolisthesis. There is multilevel moderate to severe facet arthropathy at L4-L5 and L5-S1. There is multilevel disc degenerative disease and enthesopathy, but currently with no visible acute disc herniation or limiting stenosis. Bladder: There is bladder wall thickening. Soft tissues: Unremarkable. IMPRESSION: No acute lumbar spine fracture.
[2021-07-28] MEDS ORDERED: SODIUM CHLORIDE 0.9% IV SCH (08:30)
[2021-07-28] MEDS ORDERED: VANCOMYCIN IV SCH (08:30)
--- NOTE | 2021-07-28 09:06 | CR ---
PROCEDURE INFORMATION: Exam: XR Chest Exam date and time: 07/28/2021 8:12 AM Age: 65 years old Clinical indication: Sepsis work up TECHNIQUE: Imaging protocol: XR of the chest. Views: 1 view. COMPARISON: CR Chest 1V Frontal 06/02/2021 5:43 PM FINDINGS: Lungs: Poor inspiration. Decreased lung volumes. No pneumonia or pulmonary edema. Pleural spaces: No pleural effusion or pneumothorax. Heart/Mediastinum: The cardiac silhouette is not enlarged. The mediastinal contours are normal. Bones/joints: No acute osseous abnormality. Soft tissues: Bilateral epicardial fat pads. IMPRESSION: No acute finding.
[2021-07-28] MEDS ORDERED: Insulin Regular, Human 100 Units/ML 3 ML Vial IV ONE (09:22)
[2021-07-28] MEDS ORDERED: 50% Dextrose in Water 50 ML Syringe IVPUSH PRN ×2 (09:22→11:47)
[2021-07-28] MEDS ORDERED: Glucagon,Human Recombinant 1 MG Vial IM PRN ×2 (09:22→11:47)
[2021-07-28 09:23] LABS: CORONAVIRUS COVID-19 NAA NEGATIVE (NEGATIVE)
[2021-07-28] MEDS ORDERED: Morphine 2 MG/ML SYRINGE IVPUSH PRN (11:34)
[2021-07-28] MEDS ORDERED: Albuterol/Ipratropium 3.0-0.5 MG/3 ML Neb Soln NEB PRN (11:34)
[2021-07-28] MEDS ORDERED: Ondansetron 4 MG/2 ML SDV IVPUSH PRN (11:34)
[2021-07-28] MEDS ORDERED: Albuterol 6.7 GM Inhaler INH PRN (11:45)
[2021-07-28] MEDS ORDERED: hydrALAZINE 20 MG/ML SDV IVPUSH PRN (11:45)
[2021-07-28] MEDS ORDERED: Piperacillin/Tazobactam 3.375 GM in Sodium Chloride 0.9% 100 ML IV SCH (11:45)
[2021-07-28] MEDS: oxyCODONE 5 MG Tab PO PRN ×2 (12:08→20:42)
[2021-07-28] MEDS: Insulin Glarg,Human.Rec.Analog 100 Unit/ML SUBCUT SCH ×2 (12:09→20:49)
[2021-07-28] MEDS: Acetaminophen 325 MG Tab PO PRN ×2 (12:09→20:43)
[2021-07-28] MEDS: Enoxaparin 40 MG/0.4 ML Syringe SUBCUT SCH (12:10)
[2021-07-28] MEDS: Insulin Lispro 100 Units/ML 3 ML Vial SUBCUT SCH ×3 (12:10→20:50)
--- NOTE | 2021-07-28 12:12 | PCM.HP ---
H&P History of Present Illness - General Date of Service: 07/28/21 Admit Problem/Dx: Admission Diagnosis/Problem Admission Diagnosis/Problem Sepsis Source of Information: Patient, Provider - History of Present Illness Initial Comments - Free Text/Narative: Pt is a 65 yom with a significant past medical history of DM, seizure disorder, HTN and current smoker who presented to the ER due to both gluteal areas pain and right inguinal pain. He is a poor historian. As per pt, he has chronic both gluteal areas pain which has been worsening over the past 1-2 days. The pain is constant, sharp in nature and 8/10 in severity. Does not radiate to legs. He saw his doctor on Friday for the pain. He also reports that he has acute right inguinal pain which started yesterday. It is constant, sharp in nature and 8/10 in severity. He has been having seizure disorder x 20 years. He otherwise denies headache, dizziness, n/v/d, abdominal pain, chest pain, sob or dysuria. In the ER, he was found to have leukocytosis, 27. UA negative. CXR, CT L-spine and CT pelvis were negative. Lower Back Pain Score (Numeric/FACES): 8 Right Groin Pain Score (Numeric/FACES): 8 - Related Data Allergies/Adverse Reactions: Allergies Allergy/AdvReac Type Severity Reaction Status Date / Time No Known Allergies Allergy Verified 06/22/21 19:00 Home Medications: Home Meds Aspirin [Adult Low Dose Aspirin EC] 81 mg PO DAILY 10/01/13 [History] Nitroglycerin [Nitrostat] 0.4 mg SL .[id number] PRN 04/14/14 [History] metFORMIN HCl [Metformin HCl] 500 mg PO WITHBREAKFAST 01/14/16 [History] Acetaminophen [Acetaminophen Extra Strength] 500 mg PO Q6H PRN 05/18/19 [History] Albuterol [Proventil HFA] 2 puff INH Q6H PRN 05/18/19 [History] Metoprolol Tartrate [Lopressor] 25 mg PO BID 05/18/19 [History] amLODIPine Besylate [Norvasc] 10 mg PO DAILY 05/18/19 [History] hydroCHLOROthiazide [Hydrochlorothiazide] 25 mg PO DAILY 05/18/19 [History] levETIRAcetam [Keppra] 1,000 mg PO BID 05/18/19 [History] lisinopriL [Zestril] 40 mg PO DAILY 05/18/19 [History] Insulin Detemir [Levemir] 44 unit SUBCUT BID 06/02/21 [History] Past Medical History HEENT History: Reports: None Cardiovascular History: Reports: Angina, CAD, High Cholesterol, Hypertension Other Cardiovascular History: patient poor historian. unknown type of cardiac history or why is on medications. states Nitro was given to him to control his seizures Other Respiratory History: patient denies history but has Albuterol inhaler on old med list and state that he still takes it once a day Gastrointestinal History: Reports: Other (See Below) Other Gastrointestinal History: chronic nausea Genitourinary History: Reports: Diabetic Nephropathy Musculoskeletal History: Reports: None Neurological History: Reports: Concussion, Head Trauma, Neuropathy, Diabetic, Seizure Psychiatric History: Reports: Addiction Endocrine/Metabolic History: Reports: Diabetes, Type II, Obesity/BMI 30+ Other Endocrine/Metabolic History: patient states is a diabetic but takes no medications for this. "they gave me the little jar of nitro" Hematologic History: Reports: None Immunologic History: Reports: None Oncologic (Cancer) History: Reports: None Dermatologic History: Reports: Cellulitis Other Dermatologic History: palm of left hand and cellulitis - Infectious Disease History Infectious Disease History: Reports: Chicken Pox Other Infectious Disease History: patient is a poor historian - Past Surgical History Head Surgeries/Procedures: Reports: None HEENT Surgical History: Reports: None Cardiovascular Surgical History: Reports: Percutaneous Transluminal Angioplasty - History Comment History Comment: DM, seizure disorder, HTN and current smoker Social & Family History - Family History Family Medical History: No Pertinent Family History (Dada genetic diseases in family) - Tobacco Use Tobacco Use Status *Q: Current Every Day Tobacco User Years of Tobacco use: 5 Packs/Tins Daily: 0.5 - Caffeine Use Caffeine Use: Reports: Coffee, Soda - Recreational Drug Use Recreational Drug Use: No - Living Situation & Occupation Living situation: Reports: Single Occupation: Disabled H&P Review of Systems - Review of Systems: Review Of Systems: See Below General: Reports: No Symptoms HEENT: Reports: No Symptoms Pulmonary: Reports: No Symptoms Cardiovascular: Reports: No Symptoms Gastrointestinal: Reports: No Symptoms Musculoskeletal: Reports: Back Pain, Leg Pain Skin: Reports: No Symptoms Psychiatric: Reports: No Symptoms Neurological: Reports: No Symptoms Hematologic/Lymphatic: Reports: No Symptoms Immunologic: Reports: No Symptoms Exam - Exam Exam: See Below - Vital Signs Vital Signs: Last Vital Signs Temp 38.8 C H 07/28/21 11:00 Pulse 102 H 07/28/21 11:00 Resp 18 07/28/21 11:00 BP 134/70 07/28/21 11:00 Pulse Ox 97 07/28/21 11:00 Weight: 150.184 kg - Exam General: Alert, Oriented, Cooperative, Mild Distress (due to pain) HEENT: Conjunctiva Clear, EOMI, Pupils Equal, Pupils Reactive Neck: Supple, Full Range of Motion. No: JVD Lungs: Normal Respiratory Effort, Wheezing (current smoker) Cardiovascular: Regular Rate, Regular Rhythm, Normal S1, Normal S2 GI/Abdominal Exam: Normal Bowel Sounds, Soft, Non-Tender, No Organomegaly, No Distention, Other (umblical hernia) Back Exam: Normal Inspection, Full Range of Motion (tenderness over gluteal areas and right inguinal. No tenderness over T, L and S spines) Extremities: Normal Range of Motion, Non-Tender, No Pedal Edema, Normal Capillary Refill, Other (right leg mildly increased warmth) Skin: Warm, Dry, Intact Neurological: Cranial Nerves Intact, Reflexes Equal Bilateral, Strength Equal Bilateral, Normal Speech, Normal Tone, Sensation Intact Neuro Extensive - Mental Status: Alert, Oriented x3, Normal Mood/Affect Psychiatric: Alert, Normal Affect, Normal Mood - Patient Data Lab Results Last 24 hrs: Laboratory Results - last 24 hr 07/28/21 07/28/21 07/28/21 Range/Units 06:55 07:10 07:10 WBC 27.1 H* (5.0-10.0) 10^3/uL RBC 4.95 (4.6-6.2) 10^6/uL Hgb 14.0 (14.0-18.0) g/dL Hct 41.8 (40.0-54.0) % MCV 84.4 (80-100) fL MCH 28.3 (27.0-34.0) pg MCHC 33.5 (33.0-35.0) g/dL Plt Count 191 (150-450) 10^3/uL Neut % (Auto) 88.1 H (42.2-75.2) % Lymph % (Auto) 4.1 L (20.5-50.1) % Divide % (Auto) 7.6 (2-8) % Eos % (Auto) 0.1 L (1.0-3.0) % Baso % (Auto) 0.1 (0.0-1.0) % Add Manual Diff Yes Neutrophils % (Manual) 79 H (42-75) % Band Neutrophils % 7 % Lymphocytes % (Manual) 6 L (20-50) % Monocytes % (Manual) 8 (2-8) % VBG pH (7.31-7.41) Sodium 133 L (136-145) mmol/L Potassium 4.4 (3.5-5.1) mmol/L Chloride 99 (98-107) mmol/L Carbon Dioxide 21 (21-32) mmol/L Anion Gap 17.4 H (7-13) mEq/L BUN 24 H (7-18) mg/dL Creatinine 1.23 (0.70-1.30) mg/dL Est Cr Clr Drug Dosing 68.57 mL/min Estimated GFR (MDRD) 59 BUN/Creatinine Ratio 19.5 (No establ ref range) Glucose 309 H (70-99) mg/dL POC Glucose 300 H (70-99) mg/dL Lactic Acid (0.4-2.0) mmol/L Calcium 8.8 (8.5-10.1) mg/dL Total Bilirubin 0.6 (0.2-1.0) mg/dL AST 13 L (15-37) U/L ALT 21 (16-63) U/L Alkaline Phosphatase 108 (46-116) U/L Total Protein 7.7 (6.4-8.2) g/dL Albumin 3.3 L (3.4-5.0) g/dL Globulin 4.4 Albumin/Globulin Ratio 0.75 Lipase (73-393) U/L Urine Color (YELLOW) Urine Appearance (CLEAR) Urine pH (5.0-9.0) Ur Specific [place] (1.005-1.030) Urine Protein (NEGATIVE) Urine Glucose (UA) (NEGATIVE) Urine Ketones (NEGATIVE) Urine Occult Blood (NEGATIVE) Urine Nitrite (NEGATIVE) Urine Bilirubin (NEGATIVE) Urine Urobilinogen (0.2-1.0) mg/dL Ur Leukocyte Esterase (NEGATIVE) Urine RBC (0-5) /HPF Urine WBC (0-5/HPF) /HPF Ur Epithelial Cells (NOT SEEN) /HPF Urine Bacteria (0-FEW/HPF) /HPF Ethyl Alcohol < 3 (0) mg/dL Ketones Influenza Type A RNA (NEGATIVE) Influenza Type B RNA (NEGATIVE) SARS-CoV-2 RNA (BETTINA) (NEGATIVE) 07/28/21 07/28/21 07/28/21 Range/Units 07:10 07:10 08:07 WBC (5.0-10.0) 10^3/uL RBC (4.6-6.2) 10^6/uL Hgb (14.0-18.0) g/dL Hct (40.0-54.0) % MCV (80-100) fL MCH (27.0-34.0) pg MCHC (33.0-35.0) g/dL Plt Count (150-450) 10^3/uL Neut % (Auto) (42.2-75.2) % Lymph % (Auto) (20.5-50.1) % Divide % (Auto) (2-8) % Eos % (Auto) (1.0-3.0) % Baso % (Auto) (0.0-1.0) % Add Manual Diff Neutrophils % (Manual) (42-75) % Band Neutrophils % % Lymphocytes % (Manual) (20-50) % Monocytes % (Manual) (2-8) % VBG pH 7.41 (7.31-7.41) Sodium (136-145) mmol/L Potassium (3.5-5.1) mmol/L Chloride (98-107) mmol/L Carbon Dioxide (21-32) mmol/L Anion Gap (7-13) mEq/L BUN (7-18) mg/dL Creatinine (0.70-1.30) mg/dL Est Cr Clr Drug Dosing mL/min Estimated GFR (MDRD) BUN/Creatinine Ratio (No establ ref range) Glucose (70-99) mg/dL POC Glucose (70-99) mg/dL Lactic Acid (0.4-2.0) mmol/L Calcium (8.5-10.1) mg/dL Total Bilirubin (0.2-1.0) mg/dL AST (15-37) U/L ALT (16-63) U/L Alkaline Phosphatase (46-116) U/L Total Protein (6.4-8.2) g/dL Albumin (3.4-5.0) g/dL Globulin Albumin/Globulin Ratio Lipase 91 (73-393) U/L Urine Color (YELLOW) Urine Appearance (CLEAR) Urine pH (5.0-9.0) Ur Specific [place] (1.005-1.030) Urine Protein (NEGATIVE) Urine Glucose (UA) (NEGATIVE) Urine Ketones (NEGATIVE) Urine Occult Blood (NEGATIVE) Urine Nitrite (NEGATIVE) Urine Bilirubin (NEGATIVE) Urine Urobilinogen (0.2-1.0) mg/dL Ur Leukocyte Esterase (NEGATIVE) Urine RBC (0-5) /HPF Urine WBC (0-5/HPF) /HPF Ur Epithelial Cells (NOT SEEN) /HPF Urine Bacteria (0-FEW/HPF) /HPF Ethyl Alcohol (0) mg/dL Ketones Negative Influenza Type A RNA (NEGATIVE) Influenza Type B RNA (NEGATIVE) SARS-CoV-2 RNA (BETTINA) (NEGATIVE) 07/28/21 07/28/21 07/28/21 Range/Units 08:27 08:40 08:55 WBC (5.0-10.0) 10^3/uL RBC (4.6-6.2) 10^6/uL Hgb (14.0-18.0) g/dL Hct (40.0-54.0) % MCV (80-100) fL MCH (27.0-34.0) pg MCHC (33.0-35.0) g/dL Plt Count (150-450) 10^3/uL Neut % (Auto) (42.2-75.2) % Lymph % (Auto) (20.5-50.1) % Divide % (Auto) (2-8) % Eos % (Auto) (1.0-3.0) % Baso % (Auto) (0.0-1.0) % Add Manual Diff Neutrophils % (Manual) (42-75) % Band Neutrophils % % Lymphocytes % (Manual) (20-50) % Monocytes % (Manual) (2-8) % VBG pH (7.31-7.41) Sodium (136-145) mmol/L Potassium (3.5-5.1) mmol/L Chloride (98-107) mmol/L Carbon Dioxide (21-32) mmol/L Anion Gap (7-13) mEq/L BUN (7-18) mg/dL Creatinine (0.70-1.30) mg/dL Est Cr Clr Drug Dosing mL/min Estimated GFR (MDRD) BUN/Creatinine Ratio (No establ ref range) Glucose (70-99) mg/dL POC Glucose (70-99) mg/dL Lactic Acid 2.4 H* (0.4-2.0) mmol/L Calcium (8.5-10.1) mg/dL Total Bilirubin (0.2-1.0) mg/dL AST (15-37) U/L ALT (16-63) U/L Alkaline Phosphatase (46-116) U/L Total Protein (6.4-8.2) g/dL Albumin (3.4-5.0) g/dL Globulin Albumin/Globulin Ratio Lipase (73-393) U/L Urine Color Yellow (YELLOW) Urine Appearance Clear (CLEAR) Urine pH 5.5 (5.0-9.0) Ur Specific [place] >= 1.030 (1.005-1.030) Urine Protein 100 H (NEGATIVE) Urine Glucose (UA) >=1000 H (NEGATIVE) Urine Ketones Negative (NEGATIVE) Urine Occult Blood Trace-intact H (NEGATIVE) Urine Nitrite Negative (NEGATIVE) Urine Bilirubin Negative (NEGATIVE) Urine Urobilinogen 0.2 (0.2-1.0) mg/dL Ur Leukocyte Esterase Negative (NEGATIVE) Urine RBC 0-5 (0-5) /HPF Urine WBC 0-5 (0-5/HPF) /HPF Ur Epithelial Cells Few (NOT SEEN) /HPF Urine Bacteria Few (0-FEW/HPF) /HPF Ethyl Alcohol (0) mg/dL Ketones Influenza Type A RNA Negative (NEGATIVE) Influenza Type B RNA Negative (NEGATIVE) SARS-CoV-2 RNA (BETTINA) Negative (NEGATIVE) 07/28/21 07/28/21 Range/Units 09:12 11:37 WBC (5.0-10.0) 10^3/uL RBC (4.6-6.2) 10^6/uL Hgb (14.0-18.0) g/dL Hct (40.0-54.0) % MCV (80-100) fL MCH (27.0-34.0) pg MCHC (33.0-35.0) g/dL Plt Count (150-450) 10^3/uL Neut % (Auto) (42.2-75.2) % Lymph % (Auto) (20.5-50.1) % Divide % (Auto) (2-8) % Eos % (Auto) (1.0-3.0) % Baso % (Auto) (0.0-1.0) % Add Manual Diff Neutrophils % (Manual) (42-75) % Band Neutrophils % % Lymphocytes % (Manual) (20-50) % Monocytes % (Manual) (2-8) % VBG pH (7.31-7.41) Sodium (136-145) mmol/L Potassium (3.5-5.1) mmol/L Chloride (98-107) mmol/L Carbon Dioxide (21-32) mmol/L Anion Gap (7-13) mEq/L BUN (7-18) mg/dL Creatinine (0.70-1.30) mg/dL Est Cr Clr Drug Dosing mL/min Estimated GFR (MDRD) BUN/Creatinine Ratio (No establ ref range) Glucose (70-99) mg/dL POC Glucose 368 H 344 H (70-99) mg/dL Lactic Acid (0.4-2.0) mmol/L Calcium (8.5-10.1) mg/dL Total Bilirubin (0.2-1.0) mg/dL AST (15-37) U/L ALT (16-63) U/L Alkaline Phosphatase (46-116) U/L Total Protein (6.4-8.2) g/dL Albumin (3.4-5.0) g/dL Globulin Albumin/Globulin Ratio Lipase (73-393) U/L Urine Color (YELLOW) Urine Appearance (CLEAR) Urine pH (5.0-9.0) Ur Specific [place] (1.005-1.030) Urine Protein (NEGATIVE) Urine Glucose (UA) (NEGATIVE) Urine Ketones (NEGATIVE) Urine Occult Blood (NEGATIVE) Urine Nitrite (NEGATIVE) Urine Bilirubin (NEGATIVE) Urine Urobilinogen (0.2-1.0) mg/dL Ur Leukocyte Esterase (NEGATIVE) Urine RBC (0-5) /HPF Urine WBC (0-5/HPF) /HPF Ur Epithelial Cells (NOT SEEN) /HPF Urine Bacteria (0-FEW/HPF) /HPF Ethyl Alcohol (0) mg/dL Ketones Influenza Type A RNA (NEGATIVE) Influenza Type B RNA (NEGATIVE) SARS-CoV-2 RNA (BETTINA) (NEGATIVE) Result Diagrams: 07/28/21 07:10 07/28/21 07:10 Problem List Initiated/Reviewed/Updated: Yes Orders Last 24hrs: Active Orders 24 hr Category Date Time Status Admission Diagnosis [ADT] Stat ADT 07/28/21 10:28 Ordered Admission Status [Patient Status] [ADT] Routine ADT 07/28/21 10:28 Active Bedrest Bedside Commode [RC] ASDIRECTED Care 07/28/21 11:34 Ordered Cardiac Monitoring [RC] CONTINUOUS Care 07/28/21 11:35 Ordered Intake and Output [RC] QSHIFT Care 07/28/21 11:35 Ordered Oxygen Therapy [RC] PRN Care 07/28/21 11:34 Ordered RT Aerosol Therapy [RC] ASDIRECTED Care 07/28/21 11:40 Ordered RT Post Treatment Assessment [RC] Click to Edit Care 07/28/21 11:59 Ordered RT Pre-Treatment Assessment [RC] Click to Edit Care 07/28/21 11:59 Ordered VTE/DVT Education [RC] PER UNIT ROUTINE Care 07/28/21 11:34 Ordered Vaccine to be Administered/Admin Charge [RC] ASDIRECTED Care 07/30/21 11:28 Active Vital Signs [RC] Q4H Care 07/28/21 11:34 Ordered Consistent Carbohydrate Diet [DIET] Diet 07/28/21 Lunch Ordered Pelvis wo Cont [CT] Stat Exams 07/28/21 11:49 Ordered CBC WITH AUTO DIFF [HEME] DAILY Lab 07/29/21 05:00 Ordered CBC WITH AUTO DIFF [HEME] DAILY Lab 07/30/21 05:00 Ordered CBC WITH AUTO DIFF [HEME] DAILY Lab 07/31/21 05:00 Ordered CBC WITH AUTO DIFF [HEME] DAILY Lab 08/01/21 05:00 Ordered CBC WITH AUTO DIFF [HEME] DAILY Lab 08/02/21 05:00 Ordered COMPREHENSIVE METABOLIC PN,CMP [CHEM] DAILY Lab 07/29/21 05:00 Ordered COMPREHENSIVE METABOLIC PN,CMP [CHEM] DAILY Lab 07/30/21 05:00 Ordered COMPREHENSIVE METABOLIC PN,CMP [CHEM] DAILY Lab 07/31/21 05:00 Ordered COMPREHENSIVE METABOLIC PN,CMP [CHEM] DAILY Lab 08/01/21 05:00 Ordered COMPREHENSIVE METABOLIC PN,CMP [CHEM] DAILY Lab 08/02/21 05:00 Ordered CULTURE BLOOD [BC] Stat Lab 07/28/21 08:27 Received CULTURE BLOOD [BC] Stat Lab 07/28/21 08:33 Received LACTIC ACID [CHEM] Routine Lab 07/28/21 11:05 Ordered LACTIC ACID [CHEM] Routine Lab 07/29/21 05:00 Ordered MAGNESIUM [CHEM] Routine Lab 07/29/21 05:00 Ordered VANCOMYCIN TROUGH [CHEM] Timed Lab 07/30/21 08:30 Ordered Acetaminophen [TylenoL] Med 07/28/21 11:34 Ordered 650 mg PO Q6H PRN Albuterol [Proventil HFA] Med 07/28/21 11:45 Ordered 2 puff INH Q6H PRN Albuterol/Ipratropium [DuoNeb 3.0-0.5 MG/3 ML] Med 07/28/21 11:34 Ordered 3 ml NEB Q4H PRN Aspirin [Halfprin] Med 07/28/21 12:00 Ordered 81 mg PO DAILY Dextrose 50% in Water Med 07/28/21 11:47 Active 50 ml IVPUSH Q15M PRN Enoxaparin [Lovenox] Med 07/28/21 11:45 Ordered 40 mg SUBCUT DAILY Glucagon,Human Recombinant [GlucaGen] Med 07/28/21 11:47 Active 1 mg IM Q15M PRN Insulin Glarg,Human.Rec.Analog [LantUS] Med 07/28/21 12:00 Active 30 unit SUBCUT BID Insulin Lispro [HumaLOG] Med 07/28/21 12:00 Active See Protocol SUBCUT WITHMEALSANDBED Lactated Ringers @ 125 MLS/HR(1000ml) Med 07/28/21 11:45 Ordered Lactated Ringers [Ringers, Lactated] 1,000 ml IV ASDIRECTED Metoprolol Tartrate [Lopressor] Med 07/28/21 12:00 Ordered 25 mg PO BID Morphine Med 07/28/21 11:34 Ordered 2 mg IVPUSH Q4H PRN Nicotine [Habitrol] Med 07/29/21 09:00 Ordered 14 mg TRDERM DAILY Ondansetron [Zofran] Med 07/28/21 11:34 Ordered 4 mg IVPUSH Q6H PRN Pharmacy to Dose - InFluenza V [Pharmacy to Dose - Med 07/30/21 09:00 Active InFluenza Vaccine] 1 each IM DAILY Pharmacy to Dose - Vancomycin Med 07/29/21 09:00 Pending 0 dose .XX DAILY Piperacillin/Tazobactam [Zosyn] 3.375 gm Med 07/28/21 14:00 Active Sodium Chloride 0.9% [Normal Saline AdvBag] 100 ml IV Q6H Remove Patch Med 07/30/21 09:00 Active 1 ea TRDERM DAILY Sodium Chloride 0.9% [Saline Flush] Med 07/28/21 07:54 Active 10 ml FLUSH ASDIRECTED PRN Vancomycin 1.5 gm Med 07/28/21 21:00 Active Sodium Chloride 0.9% [Normal Saline AdvBag] 250 ml IV Q12H amLODIPine Besylate [Norvasc] Med 07/28/21 12:00 Ordered 10 mg PO DAILY hydrALAZINE [Apresoline] Med 07/28/21 11:45 Ordered 10 mg IVPUSH Q4H PRN hydroCHLOROthiazide Med 07/28/21 12:00 Ordered 25 mg PO DAILY levETIRAcetam [Keppra] Med 07/28/21 12:00 Ordered 1,000 mg PO BID lisinopriL [Zestril] Med 07/28/21 12:00 Ordered 40 mg PO DAILY oxyCODONE Med 07/28/21 11:34 Ordered 5 mg PO Q4H PRN Blood Culture x2 Reflex Set [OM.PC] Stat Oth 07/28/21 07:54 Ordered Saline Lock Insert [OM.PC] Stat Oth 07/28/21 07:54 Ordered Severe Sepsis Onset Time [OM.PC] Stat Oth 07/28/21 07:54 Ordered Resuscitation Status Routine Resus Stat 07/28/21 11:34 Ordered Medication Orders Acetaminophen (Acetaminophen 325 Mg Tab) 650 mg PO Q6H PRN PRN Reason: Pain (Mild 1-3)/fever Albuterol (Albuterol 6.7 Gm Inhaler) 0 gm INH Q6H PRN PRN Reason: Shortness of Breath Albuterol/Ipratropium (Albuterol/Ipratropium 3.0-0.5 Mg/3 Ml Neb Soln) 3 ml NEB Q4H PRN PRN Reason: shortness of breath/wheezing Aspirin (Aspirin 81 Mg Tab.Ec) 81 mg PO DAILY [facility] Dextrose/Water (50% Dextrose In Water 50 Ml Syringe) 50 ml IVPUSH Q15M PRN PRN Reason: Hypoglycemia Enoxaparin Sodium (Enoxaparin 40 Mg/0.4 Ml Syringe) 40 mg SUBCUT DAILY [facility] Glucagon (Glucagon,Human Recombinant 1 Mg Vial) 1 mg IM Q15M PRN PRN Reason: Hypoglycemia Hydralazine HCl (Hydralazine 20 Mg/Ml Sdv) 10 mg IVPUSH Q4H PRN PRN Reason: Hypertension Hydrochlorothiazide (Hydrochlorothiazide 25 Mg Tab) 25 mg PO DAILY [facility] Vancomycin HCl 1.5 gm/ Sodium (Chloride) 250 mls @ 166.667 mls/hr IV Q12H [facility] Lactated Ringer's (Ringers, Lactated) 1,000 mls @ 125 mls/hr IV ASDIRECTED [facility] Piperacillin Sod/Tazobactam (Sod 3.375 gm/ Sodium Chloride) 100 mls @ 200 mls/hr IV Q6H [facility] Influenza Virus Vaccine (Pharmacy To Dose - Influenza Vaccine) 1 each IM DAILY [facility] Insulin Glargine (Insulin Glarg,Human.Rec.Analog 100 Unit/Ml) 30 unit SUBCUT BID [facility] Insulin Human Lispro (Insulin Lispro 100 Units/Ml 3 Ml Vial) 0 unit SUBCUT WITHMEALSANDBED [facility]; Protocol Metoprolol Tartrate (Metoprolol Tartrate 25 Mg Tab) 25 mg PO BID [facility] Miscellaneous Information (Remove Patch *Nicotine*) 1 ea TRDERM DAILY [facility] Morphine Sulfate (Morphine 2 Mg/Ml Syringe) 2 mg IVPUSH Q4H PRN PRN Reason: Pain (severe 7-10) Nicotine (Nicotine 14 Mg/24 Hr Patch) 14 mg TRDERM DAILY [facility] Non-Formulary Medication (Amlodipine Besylate [Norvasc]) 10 mg PO DAILY [facility] Non-Formulary Medication (Levetiracetam [Keppra]) 1,000 mg PO BID [facility] Non-Formulary Medication (Lisinopril [Zestril]) 40 mg PO DAILY [facility] Ondansetron HCl (Ondansetron 4 Mg/2 Ml Sdv) 4 mg IVPUSH Q6H PRN PRN Reason: Nausea/Vomiting Oxycodone HCl (Oxycodone 5 Mg Tab) 5 mg PO Q4H PRN PRN Reason: Pain (moderate 4-6) Sodium Chloride (Sodium Chloride 0.9% 10 Ml Syringe) 10 ml FLUSH ASDIRECTED PRN PRN Reason: Keep Vein Open Vancomycin HCl (Pharmacy To Dose - Vancomycin) 0 dose .XX DAILY [facility] Assessment/Plan Comment:: Pt is a 65 yom with a significant past medical history of DM, seizure disorder, HTN and current smoker who presented to the ER due to both gluteal areas pain and right inguinal pain. Assessment and plan: Early sepsis, unknown source of infection -fever, tachycardia, BP dropped -Leukocytosis, 27.1; LA 2.4 -Covid 19 negative -Influenzza A and B negative -CXR - no acute finding -LA 2.4, repeat LA Blood culture Vanco + zosyn Acute exacerbation of chronic gluteal pain Acute inguinal pain, right -No focal neurological deficits -No spine tenderness -CT pelvis negative for acute change -CT L-spine negative for acute change -CT thigh, right -US doppler arteries and vein of legs García management including morphine iv. Seizure disorder -As per pt, he has been having seizure for 20 years. Last seizre was in last month -Continue home keppra 1000mg bid -Seizure precaution Uncontrol DM with hyperglycemia -Home meds include detemir 44 units bid -I would like to start pt on lantus 30units bid -Insulin ss -Metformin is on hold Tobacco use disorder -Counseling -Nicotine patch HTN -COntinue home amlodipine 10mg daily, lisinopril 40mg daily, HCTZ 25mg daily and metoprolol 25mg bid -hydralazine prn DVT prophylaxis: Lovenox Code status: full
[2021-07-28] MEDS: Lactated Ringers 1,000 ML IV SCH (12:13)
[2021-07-28] MEDS: Aspirin 81 MG Tab.EC PO SCH (13:16)
[2021-07-28] MEDS: levETIRAcetam 500 MG Tab PO SCH ×2 (13:16→20:42)
[2021-07-28] MEDS: Piperacillin/Tazobactam 3.375 GM in Sodium Chloride 0.9% 100 ML IV SCH ×2 (13:17→19:29)
[2021-07-28] MEDS: Hydrochlorothiazide 25 MG Tab PO SCH (14:02)
[2021-07-28] MEDS: Metoprolol Tartrate 25 MG Tab PO SCH ×2 (14:02→20:43)
[2021-07-28] MEDS: Lisinopril 20 MG Tab PO SCH (14:03)
[2021-07-28] MEDS: amLODIPine 5 MG Tab PO SCH (14:03)
--- NOTE | 2021-07-28 14:14 | CT ---
PROCEDURE INFORMATION: Exam: CT Pelvis Without Contrast Exam date and time: 07/28/2021 1:47 PM Age: 65 years old Clinical indication: Acute right inguinal pain and gluteal pain TECHNIQUE: Imaging protocol: Computed tomography images of the pelvis without contrast. Radiation optimization: All CT scans at this facility use at least one of these dose optimization techniques: automated exposure control; mA and/or kV adjustment per patient size (includes targeted exams where dose is matched to clinical indication); or iterative reconstruction. COMPARISON: CT Pelvis wo Cont, Pelvis wo Cont 07/28/2021 6:59 AM FINDINGS: Stomach and bowel: Visualized small bowel and colon are unremarkable. Appendix: The appendix has a normal caliber with no wall thickening. No periappendiceal stranding. Intraperitoneal space: No ascites or pneumoperitoneum. Lymph nodes: See "Soft tissues" finding. Urinary bladder: No urinary bladder calculus or wall thickening. Reproductive: The prostate is not enlarged. Bones/joints: Multilevel disc degeneration with bridging osteophytes as well as facet arthropathy in the visualized lower lumbar spine. No acute fracture or dislocation. Soft tissues: There is stranding in the fat of the right groin encompassing prominent lymph nodes with large fatty robbie. The fat stranding could be due to edema, inflammation/cellulitis, or hemorrhage/contusion. The stranding was present before but has worsened in the interval. No soft tissue abnormality noted in the buttocks. Increased attenuation and stranding in the subcutaneous fat of the anterior abdominal wall in both lower quadrants, more so on the right, which can be due to edema, inflammation, or contusion if there was trauma. This was present before and is unchanged. There are 2 ventral hernias. The superior hernia contains fat only. The inferior hernia contains a short segment of transverse colon without bowel obstruction or strangulation. IMPRESSION: Since this morning there has been worsening of right groin subcutaneous edema, inflammation/cellulitis, or hemorrhage/contusion. Any signs of infection clinically? Any right groin trauma recently? Any condition in the right lower extremity that could lead to lymphadenitis?
[2021-07-28] MEDS: VANCOmycin 1.5 GM/300 ML 300 ML IV SCH (20:39)
[2021-07-29] MEDS: Lactated Ringers 1,000 ML IV SCH ×2 (01:21→11:03)
[2021-07-29] MEDS: Piperacillin/Tazobactam 3.375 GM in Sodium Chloride 0.9% 100 ML IV SCH ×4 (01:40→19:44)
[2021-07-29] MEDS: oxyCODONE 5 MG Tab PO PRN (02:19)
[2021-07-29 07:11] LABS: ANION GAP 14.7 mEq/L (7-13)
[2021-07-29] MEDS: Insulin Lispro 100 Units/ML 3 ML Vial SUBCUT SCH ×4 (09:02→21:37)
[2021-07-29] MEDS: Insulin Glarg,Human.Rec.Analog 100 Unit/ML SUBCUT SCH ×2 (09:03→21:36)
[2021-07-29] MEDS: Nicotine 14 MG/24 Hr Patch TRDERM SCH (09:04)
[2021-07-29] MEDS: Enoxaparin 40 MG/0.4 ML Syringe SUBCUT SCH (09:04)
[2021-07-29] MEDS: Hydrochlorothiazide 25 MG Tab PO SCH (09:05)
[2021-07-29] MEDS: Aspirin 81 MG Tab.EC PO SCH (09:05)
[2021-07-29] MEDS: levETIRAcetam 500 MG Tab PO SCH ×2 (09:06→21:35)
[2021-07-29] MEDS: Lisinopril 20 MG Tab PO SCH (09:07)
[2021-07-29] MEDS: amLODIPine 5 MG Tab PO SCH (09:07)
[2021-07-29] MEDS: Metoprolol Tartrate 25 MG Tab PO SCH ×2 (09:07→21:36)
--- NOTE | 2021-07-29 10:07 | PN ---
DATE: 07/29/2021 SUBJECTIVE: The patient is a 65-year-old male with a past medical history of diabetes mellitus, seizure disorder, hypertension, and tobacco habituation who was admitted with gluteal pain and right inguinal pain. The patient is currently on vancomycin and Zosyn and this is for possible early sepsis with focus of infection is the right groin from cellulitis. The patient had a CAT scan of the pelvis which did not show any acute findings and CAT scan of the lumbar spine is negative for any acute changes and the patient's CAT scan of the thigh showed some groin subcutaneous edema. The patient this morning is still complaining of some gluteal pain and right thigh pain but overall, he mentioned this is slightly better when compared to his admission. He denies any chest pain, shortness of breath, abdominal pain, nor any other complaints. LABORATORY DATA: Lab workup this morning: WBC is 20, hemoglobin is 12.2, hematocrit is 37.8, platelet is 159. Comprehensive metabolic panel: Sodium is 135, BUN is 27, creatinine is 1.4, glucose is 165. Lactic acid is 1.1 (improvement from 2.4 and 2.9 previously). Calcium is 7.9. Magnesium is 1.6. OBJECTIVE: VITAL SIGNS: Blood pressure is 128/69, pulse of 88, respirations of 18, temperature of 99.1, saturation is 95% on room air. HEART: Regular rate and rhythm. Normal S1 and S2. No gallops. No rubs. LUNGS: Equal bilaterally. No crackles, no wheezing. ABDOMEN: Soft, nontender. Bowel sounds positive. EXTREMITY: Still remarkable for some reproducible tenderness on the right thigh area and right groin area, as well as reproducible tenderness in the gluteal area. ASSESSMENT AND PLAN: 1. Sepsis with possible focus of infection is the cellulitis of the right groin area. The patient's WBC is still elevated, but slowly improving. We will continue with his vancomycin and Zosyn. We will also await results of the blood cultures. 2. Gluteal pain: So far, CAT scan of the pelvis is negative for any acute findings. 3. Right inguinal pain, possibly early cellulitis. Again, we will continue with vancomycin and Zosyn. 4. Seizure disorder: We will continue with his Keppra and the patient currently is seizure-free. 5. Type 2 diabetes mellitus, on insulin. We will continue with his Lantus as well as insulin sliding scale. 6. Tobacco habituation: We will continue with nicotine patch. 7. Deep venous thrombosis prophylaxis: We will continue with Lovenox. 8. Hypertension: Blood pressure is more or less within normal limits. We will continue with amlodipine, lisinopril and hydrochlorothiazide, metoprolol and hydralazine. [facility] /[id number]
[2021-07-29] MEDS: Acetaminophen 325 MG Tab PO PRN ×2 (10:38→15:15)
[2021-07-29] MEDS: VANCOmycin 1.5 GM/300 ML 300 ML IV SCH ×2 (10:55→21:42)
[2021-07-29] MEDS ORDERED: Acetaminophen 325 MG Tab PO PRN (17:01)
[2021-07-29] MEDS: Ibuprofen 200 MG Tab PO PRN (19:43)
[2021-07-30] MEDS: Lactated Ringers 1,000 ML IV SCH ×2 (00:19→17:27)
[2021-07-30] MEDS: Piperacillin/Tazobactam 3.375 GM in Sodium Chloride 0.9% 100 ML IV SCH ×4 (01:26→19:36)
[2021-07-30] MEDS: Ibuprofen 200 MG Tab PO PRN (04:22)
[2021-07-30] MEDS: VANCOmycin 1.5 GM/300 ML 1.5 GM in Premix Bag 1 BAG IV SCH ×2 (08:30→09:54)
[2021-07-30] MEDS: amLODIPine 5 MG Tab PO SCH (08:34)
[2021-07-30] MEDS: Nicotine 14 MG/24 Hr Patch TRDERM SCH (08:34)
[2021-07-30] MEDS: levETIRAcetam 500 MG Tab PO SCH ×2 (08:34→20:31)
[2021-07-30] MEDS: Aspirin 81 MG Tab.EC PO SCH (08:34)
[2021-07-30] MEDS: Metoprolol Tartrate 25 MG Tab PO SCH ×2 (08:34→20:31)
[2021-07-30] MEDS: Enoxaparin 40 MG/0.4 ML Syringe SUBCUT SCH (08:36)
[2021-07-30] MEDS: Insulin Glarg,Human.Rec.Analog 100 Unit/ML SUBCUT SCH ×2 (08:41→20:36)
[2021-07-30] MEDS: Insulin Lispro 100 Units/ML 3 ML Vial SUBCUT SCH ×4 (08:43→20:36)
[2021-07-30 09:22] LABS: ANION GAP 16.2 mEq/L (7-13)
[2021-07-30] MEDS ORDERED: Sodium Chloride 0.9% 10 ML Syringe FLUSH PRN (09:46)
--- NOTE | 2021-07-30 18:21 | US ---
PROCEDURE INFORMATION: Exam: US Duplex Lower Extremity Veins, Bilateral Exam date and time: 07/30/2021 4:40 PM Age: 65 years old Clinical indication: Pain; Leg, lower and foot; Bilateral; Additional info: R/O dvt TECHNIQUE: Imaging protocol: Real-time duplex ultrasound of the extremities with 2-D ramey scale, color Doppler flow and spectral waveform analysis with image documentation. Complete exam focused on the bilateral lower extremity veins. COMPARISON: US Extremity Non Vascular Rt 07/30/2021 4:32 PM FINDINGS: Right deep veins: Unremarkable. The common femoral, femoral, proximal profunda femoral and popliteal veins are patent without thrombus. Normal Doppler waveforms. Normal compressibility and/or augmentation response. Right superficial veins: Saphenofemoral junction is patent without thrombus. Left deep veins: Unremarkable. The common femoral, femoral, proximal profunda femoral and popliteal veins are patent without thrombus. Normal Doppler waveforms. Normal compressibility and/or augmentation response. Left superficial veins: Saphenofemoral junction is patent without thrombus. Soft tissues: Unremarkable. IMPRESSION: No evidence of deep vein thrombosis.
[2021-07-30] MEDS: oxyCODONE 5 MG Tab PO PRN (19:40)
--- NOTE | 2021-07-30 20:55 | PCM.PN ---
- General Info Date of Service: 07/30/21 Admission Dx/Problem (Free Text): Fever and leukocytosis have resolved. Pt still has some pain in the right groin area. He had a doppler US of the legs as well as one of his right groin but results of that are still pending. - Patient Data Vitals - Most Recent: Last Vital Signs Temp 98.0 F 07/30/21 16:00 Pulse 98 07/30/21 20:31 Resp 22 H 07/30/21 16:00 BP 120/75 07/30/21 20:31 Pulse Ox 90 L 07/30/21 16:00 Weight - Most Recent: 331 lb 1.6 oz I&O - Last 24 Hours: Intake & Output 07/30/21 07/30/21 07/30/21 06:59 14:59 22:59 Intake Total 650 850 250 Output Total 1000 Balance 650 -150 250 Lab Results Last 24 Hours: Laboratory Results - last 24 hr 07/29/21 07/30/21 07/30/21 Range/Units 21:33 08:16 08:35 WBC (5.0-10.0) 10^3/uL RBC (4.6-6.2) 10^6/uL Hgb (14.0-18.0) g/dL Hct (40.0-54.0) % MCV (80-100) fL MCH (27.0-34.0) pg MCHC (33.0-35.0) g/dL Plt Count (150-450) 10^3/uL Neut % (Auto) (42.2-75.2) % Lymph % (Auto) (20.5-50.1) % [place] % (Auto) (2-8) % Eos % (Auto) (1.0-3.0) % Baso % (Auto) (0.0-1.0) % Sodium 137 (136-145) mmol/L Potassium 4.2 (3.5-5.1) mmol/L Chloride 104 (98-107) mmol/L Carbon Dioxide 21 (21-32) mmol/L Anion Gap 16.2 H (7-13) mEq/L BUN 25 H (7-18) mg/dL Creatinine 1.31 H (0.70-1.30) mg/dL Est Cr Clr Drug Dosing 64.38 mL/min Estimated GFR (MDRD) 55 BUN/Creatinine Ratio 19.1 (No establ ref range) Glucose 174 H (70-99) mg/dL POC Glucose 202 H 152 H (70-99) mg/dL Calcium 8.0 L (8.5-10.1) mg/dL Total Bilirubin 0.7 (0.2-1.0) mg/dL AST 34 (15-37) U/L ALT 13 L (16-63) U/L Alkaline Phosphatase 78 (46-116) U/L Total Protein 6.5 (6.4-8.2) g/dL Albumin 2.1 L (3.4-5.0) g/dL Globulin 4.4 Albumin/Globulin Ratio 0.48 Vancomycin Trough 21.3 H (10.0-20.0) ug/mL 07/30/21 07/30/21 07/30/21 Range/Units 08:35 11:37 16:37 WBC 9.0 (5.0-10.0) 10^3/uL RBC 4.28 L (4.6-6.2) 10^6/uL Hgb 12.3 L (14.0-18.0) g/dL Hct 37.3 L (40.0-54.0) % MCV 87.1 (80-100) fL MCH 28.7 (27.0-34.0) pg MCHC 33.0 (33.0-35.0) g/dL Plt Count 175 (150-450) 10^3/uL Neut % (Auto) 72.6 (42.2-75.2) % Lymph % (Auto) 16.8 L (20.5-50.1) % [place] % (Auto) 8.8 H (2-8) % Eos % (Auto) 1.6 (1.0-3.0) % Baso % (Auto) 0.2 (0.0-1.0) % Sodium (136-145) mmol/L Potassium (3.5-5.1) mmol/L Chloride (98-107) mmol/L Carbon Dioxide (21-32) mmol/L Anion Gap (7-13) mEq/L BUN (7-18) mg/dL Creatinine (0.70-1.30) mg/dL Est Cr Clr Drug Dosing mL/min Estimated GFR (MDRD) BUN/Creatinine Ratio (No establ ref range) Glucose (70-99) mg/dL POC Glucose 222 H 222 H (70-99) mg/dL Calcium (8.5-10.1) mg/dL Total Bilirubin (0.2-1.0) mg/dL AST (15-37) U/L ALT (16-63) U/L Alkaline Phosphatase (46-116) U/L Total Protein (6.4-8.2) g/dL Albumin (3.4-5.0) g/dL Globulin Albumin/Globulin Ratio Vancomycin Trough (10.0-20.0) ug/mL 07/30/21 Range/Units 20:30 WBC (5.0-10.0) 10^3/uL RBC (4.6-6.2) 10^6/uL Hgb (14.0-18.0) g/dL Hct (40.0-54.0) % MCV (80-100) fL MCH (27.0-34.0) pg MCHC (33.0-35.0) g/dL Plt Count (150-450) 10^3/uL Neut % (Auto) (42.2-75.2) % Lymph % (Auto) (20.5-50.1) % [place] % (Auto) (2-8) % Eos % (Auto) (1.0-3.0) % Baso % (Auto) (0.0-1.0) % Sodium (136-145) mmol/L Potassium (3.5-5.1) mmol/L Chloride (98-107) mmol/L Carbon Dioxide (21-32) mmol/L Anion Gap (7-13) mEq/L BUN (7-18) mg/dL Creatinine (0.70-1.30) mg/dL Est Cr Clr Drug Dosing mL/min Estimated GFR (MDRD) BUN/Creatinine Ratio (No establ ref range) Glucose (70-99) mg/dL POC Glucose 205 H (70-99) mg/dL Calcium (8.5-10.1) mg/dL Total Bilirubin (0.2-1.0) mg/dL AST (15-37) U/L ALT (16-63) U/L Alkaline Phosphatase (46-116) U/L Total Protein (6.4-8.2) g/dL Albumin (3.4-5.0) g/dL Globulin Albumin/Globulin Ratio Vancomycin Trough (10.0-20.0) ug/mL Karel Results Last 24 Hours: Microbiology 07/28/21 08:33 Aerobic Blood Culture - Preliminary Blood - Arm, Right NO GROWTH AFTER 2 DAYS Anaerobic Blood Culture - Preliminary NO GROWTH AFTER 2 DAYS 07/28/21 08:27 Aerobic Blood Culture - Preliminary Blood - Arm, Left NO GROWTH AFTER 2 DAYS Anaerobic Blood Culture - Preliminary NO GROWTH AFTER 2 DAYS Med Orders - Current: Current Medications Acetaminophen (Acetaminophen 325 Mg Tab) 650 mg PO Q4H PRN PRN Reason: Pain (Mild 1-3)/fever Albuterol (Albuterol 6.7 Gm Inhaler) 0 gm INH Q6H PRN PRN Reason: Shortness of Breath Albuterol/Ipratropium (Albuterol/Ipratropium 3.0-0.5 Mg/3 Ml Neb Soln) 3 ml NEB Q4H PRN PRN Reason: shortness of breath/wheezing Amlodipine Besylate (Amlodipine 5 Mg Tab) 10 mg PO DAILY [facility] Last Admin: 07/30/21 08:34 Dose: 10 mg Documented by: Aspirin (Aspirin 81 Mg Tab.Ec) 81 mg PO DAILY [facility] Last Admin: 07/30/21 08:34 Dose: 81 mg Documented by: Dextrose/Water (50% Dextrose In Water 50 Ml Syringe) 50 ml IVPUSH Q15M PRN PRN Reason: Hypoglycemia Enoxaparin Sodium (Enoxaparin 40 Mg/0.4 Ml Syringe) 40 mg SUBCUT DAILY [facility] Last Admin: 07/30/21 08:36 Dose: 40 mg Documented by: Glucagon (Glucagon,Human Recombinant 1 Mg Vial) 1 mg IM Q15M PRN PRN Reason: Hypoglycemia Hydralazine HCl (Hydralazine 20 Mg/Ml Sdv) 10 mg IVPUSH Q4H PRN PRN Reason: Hypertension Lactated Ringer's (Ringers, Lactated) 1,000 mls @ 125 mls/hr IV ASDIRECTED [facility] Last Admin: 07/30/21 17:27 Dose: 125 mls/hr Documented by: Piperacillin Sod/Tazobactam (Sod 3.375 gm/ Sodium Chloride) 100 mls @ 200 mls/hr IV Q6H [facility] Last Admin: 07/30/21 19:36 Dose: 200 mls/hr Documented by: Sodium Chloride (Normal Saline) 1,000 mls @ 75 mls/hr IV ASDIRECTED [facility] Vancomycin HCl 1.25 gm/ Sodium (Chloride) 250 mls @ 166.667 mls/hr IV Q12H [facility] Last Admin: 07/30/21 09:54 Dose: 166.667 mls/hr Documented by: Influenza Virus Vaccine (Pharmacy To Dose - Influenza Vaccine) 1 each IM DAILY [facility] Last Admin: 07/30/21 08:44 Dose: Not Given Documented by: Insulin Glargine (Insulin Glarg,Human.Rec.Analog 100 Unit/Ml) 30 unit SUBCUT BID [facility] Last Admin: 07/30/21 20:36 Dose: 30 units Documented by: Insulin Human Lispro (Insulin Lispro 100 Units/Ml 3 Ml Vial) 0 unit SUBCUT WITHMEALSANDBED [facility]; Protocol Last Admin: 07/30/21 20:36 Dose: 4 units Documented by: Levetiracetam (Levetiracetam 500 Mg Tab) 1,000 mg PO BID [facility] Last Admin: 07/30/21 20:31 Dose: 1,000 mg Documented by: Metoprolol Tartrate (Metoprolol Tartrate 25 Mg Tab) 25 mg PO BID [facility] Last Admin: 07/30/21 20:31 Dose: 25 mg Documented by: Miscellaneous Information (Remove Patch *Nicotine*) 1 ea TRDERM DAILY [facility] Last Admin: 07/30/21 08:38 Dose: 1 ea Documented by: Morphine Sulfate (Morphine 2 Mg/Ml Syringe) 2 mg IVPUSH Q4H PRN PRN Reason: Pain (severe 7-10) Nicotine (Nicotine 14 Mg/24 Hr Patch) 14 mg TRDERM DAILY [facility] Last Admin: 07/30/21 08:34 Dose: 14 mg Documented by: Ondansetron HCl (Ondansetron 4 Mg/2 Ml Sdv) 4 mg IVPUSH Q6H PRN PRN Reason: Nausea/Vomiting Last Admin: 07/29/21 11:36 Dose: 4 mg Documented by: Oxycodone HCl (Oxycodone 5 Mg Tab) 5 mg PO Q4H PRN PRN Reason: Pain (moderate 4-6) Last Admin: 07/30/21 19:40 Dose: 5 mg Documented by: Sodium Chloride (Sodium Chloride 0.9% 10 Ml Syringe) 10 ml FLUSH ASDIRECTED PRN PRN Reason: Keep Vein Open Vancomycin HCl (Pharmacy To Dose - Vancomycin) 1 dose .XX ASDIRECTED [facility] Discontinued Medications Acetaminophen (Acetaminophen 325 Mg Tab) 650 mg PO Q6H PRN PRN Reason: Pain (Mild 1-3)/fever Last Admin: 07/29/21 15:15 Dose: 650 mg Documented by: Dextrose/Water (50% Dextrose In Water 50 Ml Syringe) 50 ml IVPUSH Q15M PRN PRN Reason: Hypoglycemia Glucagon (Glucagon,Human Recombinant 1 Mg Vial) 1 mg IM Q15M PRN PRN Reason: Hypoglycemia Hydrochlorothiazide (Hydrochlorothiazide 25 Mg Tab) 25 mg PO DAILY [facility] Last Admin: 07/29/21 09:05 Dose: 25 mg Documented by: Sodium Chloride (Normal Saline) 1,000 mls @ 250 mls/hr IV BOLUS ONE; Protocol Stop: 07/28/21 11:53 Last Admin: 07/28/21 08:32 Dose: 250 mls/hr Documented by: Vancomycin HCl 2,500 gm/ (Dextrose/Water) 250 mls @ 167 mls/hr IV ONETIME ONE Stop: 07/28/21 09:23 Last Admin: 07/28/21 09:18 Dose: Not Given Documented by: Piperacillin Sod/Tazobactam (Sod 4.5 gm/ Sodium Chloride) 100 mls @ 200 mls/hr IV STAT ONE Stop: 07/28/21 08:23 Last Admin: 07/28/21 08:26 Dose: 200 mls/hr Documented by: Vancomycin HCl 1,500 mg/ (Sodium Chloride) 500 mls @ 333.333 mls/hr IV ONETIME ONE Stop: 07/28/21 10:00 Last Admin: 07/28/21 09:17 Dose: 333.333 mls/hr Documented by: Vancomycin HCl 1.5 gm/ Sodium (Chloride) 250 mls @ 166.667 mls/hr IV Q12H [facility] Piperacillin Sod/Tazobactam (Sod 3.375 gm/ Sodium Chloride) 100 mls @ 200 mls/hr IV Q6H [facility] Last Admin: 07/28/21 23:08 Dose: Not Given Documented by: Sodium Chloride (Normal Saline) 1,000 mls @ 250 mls/hr IV ONETIME ONE Stop: 07/28/21 17:57 Last Admin: 07/28/21 14:05 Dose: 250 mls/hr Documented by: Vancomycin HCl (Vancomycin 1.5 Gm/300 Ml) 300 mls @ 200 mls/hr IV Q12H [facility] Last Admin: 07/29/21 21:42 Dose: 200 mls/hr Documented by: Vancomycin HCl 1.5 gm/ Premix 300 mls @ 200 mls/hr IV Q12H [facility] Last Admin: 07/30/21 09:54 Dose: Not Given Documented by: Ibuprofen (Ibuprofen 200 Mg Tab) 200 mg PO Q8H PRN PRN Reason: Fever Last Admin: 07/30/21 04:22 Dose: 200 mg Documented by: Insulin Human Regular (Insulin Regular, Human 100 Units/Ml 3 Ml Vial) 5 unit IV ONETIME ONE Stop: 07/28/21 09:23 Last Admin: 07/28/21 12:21 Dose: Not Given Documented by: Lisinopril (Lisinopril 20 Mg Tab) 40 mg PO DAILY [facility] Last Admin: 07/29/21 09:07 Dose: 40 mg Documented by: Sodium Chloride (Sodium Chloride 0.9% 10 Ml Syringe) 10 ml FLUSH ASDIRECTED PRN PRN Reason: Keep Vein Open - Exam Physical Findings Comments:: General: Obese male. In no distress CVS: S1S2 appreciated. RRR lungs: clear bilaterally. No rales or wheezes pa: soft, non tender. obese ext: no clubbing, or cyanosis. 1+ edema in the RLE as well as warmth in that leg. Right groin area is tender to touch and has some crepitus on palpation. psych: stable mood and affect. neuro: moves all extremities. Sensation is intact. - Patient Data Lab Results Last 24 hrs: Laboratory Results - last 24 hr 07/29/21 07/30/21 07/30/21 Range/Units 21:33 08:16 08:35 WBC (5.0-10.0) 10^3/uL RBC (4.6-6.2) 10^6/uL Hgb (14.0-18.0) g/dL Hct (40.0-54.0) % MCV (80-100) fL MCH (27.0-34.0) pg MCHC (33.0-35.0) g/dL Plt Count (150-450) 10^3/uL Neut % (Auto) (42.2-75.2) % Lymph % (Auto) (20.5-50.1) % [place] % (Auto) (2-8) % Eos % (Auto) (1.0-3.0) % Baso % (Auto) (0.0-1.0) % Sodium 137 (136-145) mmol/L Potassium 4.2 (3.5-5.1) mmol/L Chloride 104 (98-107) mmol/L Carbon Dioxide 21 (21-32) mmol/L Anion Gap 16.2 H (7-13) mEq/L BUN 25 H (7-18) mg/dL Creatinine 1.31 H (0.70-1.30) mg/dL Est Cr Clr Drug Dosing 64.38 mL/min Estimated GFR (MDRD) 55 BUN/Creatinine Ratio 19.1 (No establ ref range) Glucose 174 H (70-99) mg/dL POC Glucose 202 H 152 H (70-99) mg/dL Calcium 8.0 L (8.5-10.1) mg/dL Total Bilirubin 0.7 (0.2-1.0) mg/dL AST 34 (15-37) U/L ALT 13 L (16-63) U/L Alkaline Phosphatase 78 (46-116) U/L Total Protein 6.5 (6.4-8.2) g/dL Albumin 2.1 L (3.4-5.0) g/dL Globulin 4.4 Albumin/Globulin Ratio 0.48 Vancomycin Trough 21.3 H (10.0-20.0) ug/mL 07/30/21 07/30/21 07/30/21 Range/Units 08:35 11:37 16:37 WBC 9.0 (5.0-10.0) 10^3/uL RBC 4.28 L (4.6-6.2) 10^6/uL Hgb 12.3 L (14.0-18.0) g/dL Hct 37.3 L (40.0-54.0) % MCV 87.1 (80-100) fL MCH 28.7 (27.0-34.0) pg MCHC 33.0 (33.0-35.0) g/dL Plt Count 175 (150-450) 10^3/uL Neut % (Auto) 72.6 (42.2-75.2) % Lymph % (Auto) 16.8 L (20.5-50.1) % [place] % (Auto) 8.8 H (2-8) % Eos % (Auto) 1.6 (1.0-3.0) % Baso % (Auto) 0.2 (0.0-1.0) % Sodium (136-145) mmol/L Potassium (3.5-5.1) mmol/L Chloride (98-107) mmol/L Carbon Dioxide (21-32) mmol/L Anion Gap (7-13) mEq/L BUN (7-18) mg/dL Creatinine (0.70-1.30) mg/dL Est Cr Clr Drug Dosing mL/min Estimated GFR (MDRD) BUN/Creatinine Ratio (No establ ref range) Glucose (70-99) mg/dL POC Glucose 222 H 222 H (70-99) mg/dL Calcium (8.5-10.1) mg/dL Total Bilirubin (0.2-1.0) mg/dL AST (15-37) U/L ALT (16-63) U/L Alkaline Phosphatase (46-116) U/L Total Protein (6.4-8.2) g/dL Albumin (3.4-5.0) g/dL Globulin Albumin/Globulin Ratio Vancomycin Trough (10.0-20.0) ug/mL 07/30/21 Range/Units 20:30 WBC (5.0-10.0) 10^3/uL RBC (4.6-6.2) 10^6/uL Hgb (14.0-18.0) g/dL Hct (40.0-54.0) % MCV (80-100) fL MCH (27.0-34.0) pg MCHC (33.0-35.0) g/dL Plt Count (150-450) 10^3/uL Neut % (Auto) (42.2-75.2) % Lymph % (Auto) (20.5-50.1) % [place] % (Auto) (2-8) % Eos % (Auto) (1.0-3.0) % Baso % (Auto) (0.0-1.0) % Sodium (136-145) mmol/L Potassium (3.5-5.1) mmol/L Chloride (98-107) mmol/L Carbon Dioxide (21-32) mmol/L Anion Gap (7-13) mEq/L BUN (7-18) mg/dL Creatinine (0.70-1.30) mg/dL Est Cr Clr Drug Dosing mL/min Estimated GFR (MDRD) BUN/Creatinine Ratio (No establ ref range) Glucose (70-99) mg/dL POC Glucose 205 H (70-99) mg/dL Calcium (8.5-10.1) mg/dL Total Bilirubin (0.2-1.0) mg/dL AST (15-37) U/L ALT (16-63) U/L Alkaline Phosphatase (46-116) U/L Total Protein (6.4-8.2) g/dL Albumin (3.4-5.0) g/dL Globulin Albumin/Globulin Ratio Vancomycin Trough (10.0-20.0) ug/mL Result Diagrams: 07/30/21 08:35 07/30/21 08:35 Karel Results Last 24 hrs: Microbiology 07/28/21 08:33 Aerobic Blood Culture - Preliminary Blood - Arm, Right NO GROWTH AFTER 2 DAYS Anaerobic Blood Culture - Preliminary NO GROWTH AFTER 2 DAYS 07/28/21 08:27 Aerobic Blood Culture - Preliminary Blood - Arm, Left NO GROWTH AFTER 2 DAYS Anaerobic Blood Culture - Preliminary NO GROWTH AFTER 2 DAYS Sepsis Event Note - Evaluation Sepsis Screening Result: Possible Sepsis Risk - Focused Exam Vital Signs: Vital Signs Temp Temp Pulse Pulse Resp BP BP 07/30/21 20:31 98 120/75 07/30/21 16:00 98.0 F 86 22 H 07/30/21 12:36 98.3 F 64 20 113/81 BP Pulse Ox 07/30/21 20:31 07/30/21 16:00 134/92 H 90 L 07/30/21 12:36 96 - Problem List & Annotations (1) Cellulitis of groin, right SNOMED Code(s): 37689200 Code(s): L03.314 - CELLULITIS OF GROIN Status: Acute Current Visit: Yes (2) Morbid obesity with BMI of 45.0-49.9, adult SNOMED Code(s): 316909048, 40065161367604 Code(s): E66.01 - MORBID (SEVERE) OBESITY DUE TO EXCESS CALORIES; Z68.42 - BODY MASS INDEX [BMI] 45.0-49.9, ADULT Status: Acute Current Visit: Yes (3) T2DM (type 2 diabetes mellitus) SNOMED Code(s): 68971595 Code(s): E11.9 - TYPE 2 DIABETES MELLITUS WITHOUT COMPLICATIONS Status: Acute Current Visit: Yes - Problem List Review Problem List Initiated/Reviewed/Updated: Yes - My Orders Last 24 Hours: My Active Orders 07/30/21 08:30 Sodium Chloride 0.9% [Normal Saline] 1,000 ml IV ASDIRECTED 07/30/21 09:46 Sodium Chloride 0.9% [Saline Flush] 10 ml FLUSH ASDIRECTED PRN 07/30/21 10:00 Vancomycin 1.25 gm Sodium Chloride 0.9% [Normal Saline AdvBag] 250 ml IV Q12H 07/30/21 12:49 Extremity Non Vascular Rt [US] Routine 07/31/21 08:27 BMP [BASIC METABOLIC PANEL,BMP] [CHEM] DAILY 07/31/21 08:28 CBC WITH AUTO DIFF [HEME] DAILY 08/01/21 08:28 CBC WITH AUTO DIFF [HEME] DAILY - Plan Plan:: Pt is a 65 yom with a significant past medical history of DM, seizure disorder, HTN and current smoker who presented to the ER due to both gluteal areas pain and right inguinal pain. Assessment and plan: Right groin cellulitis with sepsis. -Bld cultures pending. -Improving on Vanco + zosyn -check US of the groin to look for an abscess. Acute inguinal pain, right -No focal neurological deficits -No spine tenderness -CT pelvis negative for acute change -CT L-spine negative for acute change -CT thigh, right -US doppler arteries and vein of legs García management including morphine iv. Seizure disorder -As per pt, he has been having seizure for 20 years. Last seizre was in last month -Continue home keppra 1000mg bid -Seizure precaution Uncontrol DM with hyperglycemia -Home meds include detemir 44 units bid -I would like to start pt on lantus 30units bid -Insulin ss -Metformin is on hold Tobacco use disorder -Counseling -Nicotine patch HTN -COntinue home amlodipine 10mg daily, lisinopril 40mg daily, HCTZ 25mg daily and metoprolol 25mg bid -hydralazine prn DVT prophylaxis: Lovenox Code status: full
[2021-07-31] MEDS: Piperacillin/Tazobactam 3.375 GM in Sodium Chloride 0.9% 100 ML IV SCH ×4 (01:59→19:57)
[2021-07-31] MEDS: Lactated Ringers 1,000 ML IV SCH (03:48)
[2021-07-31 07:06] LABS: ANION GAP 15.9 mEq/L (7-13); CHLORIDE,CL 106 mmol/L (98-107); SODIUM,NA 140 mmol/L (136-145)
[2021-07-31] MEDS: levETIRAcetam 500 MG Tab PO SCH ×2 (09:20→20:23)
[2021-07-31] MEDS: amLODIPine 5 MG Tab PO SCH (09:21)
[2021-07-31] MEDS: Aspirin 81 MG Tab.EC PO SCH (09:21)
[2021-07-31] MEDS: Metoprolol Tartrate 25 MG Tab PO SCH ×2 (09:21→20:23)
[2021-07-31] MEDS: Enoxaparin 40 MG/0.4 ML Syringe SUBCUT SCH (09:22)
[2021-07-31] MEDS: Nicotine 14 MG/24 Hr Patch TRDERM SCH (09:22)
[2021-07-31] MEDS: Insulin Lispro 100 Units/ML 3 ML Vial SUBCUT SCH ×4 (09:30→21:31)
[2021-07-31] MEDS: Insulin Glarg,Human.Rec.Analog 100 Unit/ML SUBCUT SCH (09:31)
[2021-07-31] MEDS: Sodium Chloride 0.9% 1,000 ML IV SCH (09:44)
--- NOTE | 2021-07-31 10:21 | US ---
PROCEDURE INFORMATION: Exam: US Right Non-Vascular Joint or Other Extremity Structure Exam date and time: 07/30/2021 4:32 PM Age: 65 years old Clinical indication: Pain; Thigh; Right; Additional info: Looking for abcesses TECHNIQUE: Imaging protocol: Right US joint or other nonvascular extremity structure or structures. Real-time ultrasound with image documentation. Limited study. Exam focused on the lower extremity in the region of clinical interest. COMPARISON: 1. CT Pelvis wo Cont 07/28/2021 1:[address] Pelvis wo Cont, Pelvis wo Cont 07/28/2021 6:[address] Abdomen Pelvis w Cont 04/26/2021 4:39 AM FINDINGS: Soft tissues: Ultrasound examination was limited to the symptomatic region located right groin. In this region, there are multiple prominent lymph nodes all of which have large normal fatty robbie. The largest lymph node measures 3 x 1.4 cm. There is no abscess or suspicious mass. IMPRESSION: Symptomatic region located in the right groin corresponds to prominent lymph nodes with preserved normal fatty robbie. No abscess.
--- NOTE | 2021-07-31 12:31 | PCM.PN ---
- General Info Date of Service: 07/31/21 - Patient Data Vitals - Most Recent: Last Vital Signs Temp 98.1 F 07/31/21 08:00 Pulse 90 07/31/21 09:21 Resp 24 H 07/31/21 08:00 BP 123/92 H 07/31/21 09:21 Pulse Ox 92 L 07/31/21 08:00 Weight - Most Recent: 331 lb 1.6 oz I&O - Last 24 Hours: Intake & Output 07/30/21 07/31/21 07/31/21 22:59 06:59 14:59 Intake Total 950 1250 200 Output Total 700 Balance 950 550 200 Lab Results Last 24 Hours: Laboratory Results - last 24 hr 07/30/21 07/30/21 07/30/21 Range/Units 11:37 16:37 20:30 WBC (5.0-10.0) 10^3/uL RBC (4.6-6.2) 10^6/uL Hgb (14.0-18.0) g/dL Hct (40.0-54.0) % MCV (80-100) fL MCH (27.0-34.0) pg MCHC (33.0-35.0) g/dL Plt Count (150-450) 10^3/uL Neut % (Auto) (42.2-75.2) % Lymph % (Auto) (20.5-50.1) % [place] % (Auto) (2-8) % Eos % (Auto) (1.0-3.0) % Baso % (Auto) (0.0-1.0) % Sodium (136-145) mmol/L Potassium (3.5-5.1) mmol/L Chloride (98-107) mmol/L Carbon Dioxide (21-32) mmol/L Anion Gap (7-13) mEq/L BUN (7-18) mg/dL Creatinine (0.70-1.30) mg/dL Est Cr Clr Drug Dosing mL/min Estimated GFR (MDRD) Glucose (70-99) mg/dL POC Glucose 222 H 222 H 205 H (70-99) mg/dL Calcium (8.5-10.1) mg/dL 07/31/21 07/31/21 07/31/21 Range/Units 06:33 06:33 07:39 WBC 8.4 (5.0-10.0) 10^3/uL RBC 4.04 L (4.6-6.2) 10^6/uL Hgb 11.5 L (14.0-18.0) g/dL Hct 35.2 L (40.0-54.0) % MCV 87.1 (80-100) fL MCH 28.5 (27.0-34.0) pg MCHC 32.7 L (33.0-35.0) g/dL Plt Count 163 (150-450) 10^3/uL Neut % (Auto) 63.6 (42.2-75.2) % Lymph % (Auto) 22.9 (20.5-50.1) % [place] % (Auto) 11.0 H (2-8) % Eos % (Auto) 2.3 (1.0-3.0) % Baso % (Auto) 0.2 (0.0-1.0) % Sodium 140 (136-145) mmol/L Potassium 3.9 (3.5-5.1) mmol/L Chloride 106 (98-107) mmol/L Carbon Dioxide 22 (21-32) mmol/L Anion Gap 15.9 H (7-13) mEq/L BUN 14 (7-18) mg/dL Creatinine 1.07 (0.70-1.30) mg/dL Est Cr Clr Drug Dosing 78.82 mL/min Estimated GFR (MDRD) > 60 Glucose 170 H (70-99) mg/dL POC Glucose 159 H (70-99) mg/dL Calcium 8.2 L (8.5-10.1) mg/dL 07/31/21 Range/Units 12:00 WBC (5.0-10.0) 10^3/uL RBC (4.6-6.2) 10^6/uL Hgb (14.0-18.0) g/dL Hct (40.0-54.0) % MCV (80-100) fL MCH (27.0-34.0) pg MCHC (33.0-35.0) g/dL Plt Count (150-450) 10^3/uL Neut % (Auto) (42.2-75.2) % Lymph % (Auto) (20.5-50.1) % [place] % (Auto) (2-8) % Eos % (Auto) (1.0-3.0) % Baso % (Auto) (0.0-1.0) % Sodium (136-145) mmol/L Potassium (3.5-5.1) mmol/L Chloride (98-107) mmol/L Carbon Dioxide (21-32) mmol/L Anion Gap (7-13) mEq/L BUN (7-18) mg/dL Creatinine (0.70-1.30) mg/dL Est Cr Clr Drug Dosing mL/min Estimated GFR (MDRD) Glucose (70-99) mg/dL POC Glucose 207 H (70-99) mg/dL Calcium (8.5-10.1) mg/dL Karel Results Last 24 Hours: Microbiology 07/28/21 08:33 Aerobic Blood Culture - Preliminary Blood - Arm, Right NO GROWTH AFTER 3 DAYS Anaerobic Blood Culture - Preliminary NO GROWTH AFTER 3 DAYS 07/28/21 08:27 Aerobic Blood Culture - Preliminary Blood - Arm, Left NO GROWTH AFTER 3 DAYS Anaerobic Blood Culture - Preliminary NO GROWTH AFTER 3 DAYS Med Orders - Current: Current Medications Acetaminophen (Acetaminophen 325 Mg Tab) 650 mg PO Q4H PRN PRN Reason: Pain (Mild 1-3)/fever Albuterol (Albuterol 6.7 Gm Inhaler) 0 gm INH Q6H PRN PRN Reason: Shortness of Breath Albuterol/Ipratropium (Albuterol/Ipratropium 3.0-0.5 Mg/3 Ml Neb Soln) 3 ml NEB Q4H PRN PRN Reason: shortness of breath/wheezing Amlodipine Besylate (Amlodipine 5 Mg Tab) 10 mg PO DAILY [facility] Last Admin: 07/31/21 09:21 Dose: 10 mg Documented by: Aspirin (Aspirin 81 Mg Tab.Ec) 81 mg PO DAILY [facility] Last Admin: 07/31/21 09:21 Dose: 81 mg Documented by: Dextrose/Water (50% Dextrose In Water 50 Ml Syringe) 50 ml IVPUSH Q15M PRN PRN Reason: Hypoglycemia Enoxaparin Sodium (Enoxaparin 40 Mg/0.4 Ml Syringe) 40 mg SUBCUT DAILY [facility] Last Admin: 07/31/21 09:22 Dose: 40 mg Documented by: Glucagon (Glucagon,Human Recombinant 1 Mg Vial) 1 mg IM Q15M PRN PRN Reason: Hypoglycemia Hydralazine HCl (Hydralazine 20 Mg/Ml Sdv) 10 mg IVPUSH Q4H PRN PRN Reason: Hypertension Piperacillin Sod/Tazobactam (Sod 3.375 gm/ Sodium Chloride) 100 mls @ 200 mls/hr IV Q6H [facility] Last Admin: 07/31/21 08:09 Dose: 200 mls/hr Documented by: Sodium Chloride (Normal Saline) 1,000 mls @ 75 mls/hr IV ASDIRECTED [facility] Last Admin: 07/31/21 09:44 Dose: 75 mls/hr Documented by: Vancomycin HCl 1.25 gm/ Sodium (Chloride) 250 mls @ 166.667 mls/hr IV Q12H [facility] Last Admin: 07/31/21 10:13 Dose: 166.667 mls/hr Documented by: Influenza Virus Vaccine (Pharmacy To Dose - Influenza Vaccine) 1 each IM DAILY [facility] Last Admin: 07/31/21 09:27 Dose: Not Given Documented by: Insulin Glargine (Insulin Glarg,Human.Rec.Analog 100 Unit/Ml) 35 unit SUBCUT BEDTIME [facility] Insulin Human Lispro (Insulin Lispro 100 Units/Ml 3 Ml Vial) 0 unit SUBCUT WITHMEALSANDBED [facility]; Protocol Last Admin: 07/31/21 09:30 Dose: 2 units Documented by: Levetiracetam (Levetiracetam 500 Mg Tab) 1,000 mg PO BID [facility] Last Admin: 07/31/21 09:20 Dose: 1,000 mg Documented by: Metoprolol Tartrate (Metoprolol Tartrate 25 Mg Tab) 25 mg PO BID [facility] Last Admin: 07/31/21 09:21 Dose: 25 mg Documented by: Miscellaneous Information (Remove Patch *Nicotine*) 1 ea TRDERM DAILY [facility] Last Admin: 07/31/21 10:00 Dose: Not Given Documented by: Morphine Sulfate (Morphine 2 Mg/Ml Syringe) 2 mg IVPUSH Q4H PRN PRN Reason: Pain (severe 7-10) Nicotine (Nicotine 14 Mg/24 Hr Patch) 14 mg TRDERM DAILY [facility] Last Admin: 07/31/21 09:22 Dose: 14 mg Documented by: Ondansetron HCl (Ondansetron 4 Mg/2 Ml Sdv) 4 mg IVPUSH Q6H PRN PRN Reason: Nausea/Vomiting Last Admin: 07/29/21 11:36 Dose: 4 mg Documented by: Oxycodone HCl (Oxycodone 5 Mg Tab) 5 mg PO Q4H PRN PRN Reason: Pain (moderate 4-6) Last Admin: 07/30/21 19:40 Dose: 5 mg Documented by: Sodium Chloride (Sodium Chloride 0.9% 10 Ml Syringe) 10 ml FLUSH ASDIRECTED PRN PRN Reason: Keep Vein Open Vancomycin HCl (Pharmacy To Dose - Vancomycin) 1 dose .XX ASDIRECTED DORINA Discontinued Medications Acetaminophen (Acetaminophen 325 Mg Tab) 650 mg PO Q6H PRN PRN Reason: Pain (Mild 1-3)/fever Last Admin: 07/29/21 15:15 Dose: 650 mg Documented by: Dextrose/Water (50% Dextrose In Water 50 Ml Syringe) 50 ml IVPUSH Q15M PRN PRN Reason: Hypoglycemia Glucagon (Glucagon,Human Recombinant 1 Mg Vial) 1 mg IM Q15M PRN PRN Reason: Hypoglycemia Hydrochlorothiazide (Hydrochlorothiazide 25 Mg Tab) 25 mg PO DAILY [facility] Last Admin: 07/29/21 09:05 Dose: 25 mg Documented by: Sodium Chloride (Normal Saline) 1,000 mls @ 250 mls/hr IV BOLUS ONE; Protocol Stop: 07/28/21 11:53 Last Admin: 07/28/21 08:32 Dose: 250 mls/hr Documented by: Vancomycin HCl 2,500 gm/ (Dextrose/Water) 250 mls @ 167 mls/hr IV ONETIME ONE Stop: 07/28/21 09:23 Last Admin: 07/28/21 09:18 Dose: Not Given Documented by: Piperacillin Sod/Tazobactam (Sod 4.5 gm/ Sodium Chloride) 100 mls @ 200 mls/hr IV STAT ONE Stop: 07/28/21 08:23 Last Admin: 07/28/21 08:26 Dose: 200 mls/hr Documented by: Vancomycin HCl 1,500 mg/ (Sodium Chloride) 500 mls @ 333.333 mls/hr IV ONETIME ONE Stop: 07/28/21 10:00 Last Admin: 07/28/21 09:17 Dose: 333.333 mls/hr Documented by: Vancomycin HCl 1.5 gm/ Sodium (Chloride) 250 mls @ 166.667 mls/hr IV Q12H [facility] Lactated Ringer's (Ringers, Lactated) 1,000 mls @ 125 mls/hr IV ASDIRECTED [facility] Last Admin: 07/31/21 03:48 Dose: 125 mls/hr Documented by: Piperacillin Sod/Tazobactam (Sod 3.375 gm/ Sodium Chloride) 100 mls @ 200 mls/hr IV Q6H [facility] Last Admin: 07/28/21 23:08 Dose: Not Given Documented by: Sodium Chloride (Normal Saline) 1,000 mls @ 250 mls/hr IV ONETIME ONE Stop: 07/28/21 17:57 Last Admin: 07/28/21 14:05 Dose: 250 mls/hr Documented by: Vancomycin HCl (Vancomycin 1.5 Gm/300 Ml) 300 mls @ 200 mls/hr IV Q12H [facility] Last Admin: 07/29/21 21:42 Dose: 200 mls/hr Documented by: Vancomycin HCl 1.5 gm/ Premix 300 mls @ 200 mls/hr IV Q12H [facility] Last Admin: 07/30/21 09:54 Dose: Not Given Documented by: Ibuprofen (Ibuprofen 200 Mg Tab) 200 mg PO Q8H PRN PRN Reason: Fever Last Admin: 07/30/21 04:22 Dose: 200 mg Documented by: Insulin Glargine (Insulin Glarg,Human.Rec.Analog 100 Unit/Ml) 30 unit SUBCUT BID [facility] Last Admin: 07/31/21 09:31 Dose: 30 units Documented by: Insulin Human Regular (Insulin Regular, Human 100 Units/Ml 3 Ml Vial) 5 unit IV ONETIME ONE Stop: 07/28/21 09:23 Last Admin: 07/28/21 12:21 Dose: Not Given Documented by: Lisinopril (Lisinopril 20 Mg Tab) 40 mg PO DAILY [facility] Last Admin: 07/29/21 09:07 Dose: 40 mg Documented by: Sodium Chloride (Sodium Chloride 0.9% 10 Ml Syringe) 10 ml FLUSH ASDIRECTED PRN PRN Reason: Keep Vein Open - Exam Physical Findings Comments:: General: Obese middle-aged male. In no acute distress CVS: S1S2 is appreciated regular rate and rhythm. No murmurs, rubs or gallops Lungs: Clear lateral to wheezes Abdomen: Soft obese nontender bowel sounds present Extremities: There is no clubbing, cyanosis or edema. Patient has some swelling and redness in the right leg. The redness and tenderness in the right groin have improved and almost fully resolved. Neuro: Strength is 5/5 bilaterally. Sensations intact. Gait not examined Psych: Stable mood and affect. - Patient Data Lab Results Last 24 hrs: Laboratory Results - last 24 hr 07/30/21 07/30/21 07/30/21 Range/Units 11:37 16:37 20:30 WBC (5.0-10.0) 10^3/uL RBC (4.6-6.2) 10^6/uL Hgb (14.0-18.0) g/dL Hct (40.0-54.0) % MCV (80-100) fL MCH (27.0-34.0) pg MCHC (33.0-35.0) g/dL Plt Count (150-450) 10^3/uL Neut % (Auto) (42.2-75.2) % Lymph % (Auto) (20.5-50.1) % [place] % (Auto) (2-8) % Eos % (Auto) (1.0-3.0) % Baso % (Auto) (0.0-1.0) % Sodium (136-145) mmol/L Potassium (3.5-5.1) mmol/L Chloride (98-107) mmol/L Carbon Dioxide (21-32) mmol/L Anion Gap (7-13) mEq/L BUN (7-18) mg/dL Creatinine (0.70-1.30) mg/dL Est Cr Clr Drug Dosing mL/min Estimated GFR (MDRD) Glucose (70-99) mg/dL POC Glucose 222 H 222 H 205 H (70-99) mg/dL Calcium (8.5-10.1) mg/dL 07/31/21 07/31/21 07/31/21 Range/Units 06:33 06:33 07:39 WBC 8.4 (5.0-10.0) 10^3/uL RBC 4.04 L (4.6-6.2) 10^6/uL Hgb 11.5 L (14.0-18.0) g/dL Hct 35.2 L (40.0-54.0) % MCV 87.1 (80-100) fL MCH 28.5 (27.0-34.0) pg MCHC 32.7 L (33.0-35.0) g/dL Plt Count 163 (150-450) 10^3/uL Neut % (Auto) 63.6 (42.2-75.2) % Lymph % (Auto) 22.9 (20.5-50.1) % [place] % (Auto) 11.0 H (2-8) % Eos % (Auto) 2.3 (1.0-3.0) % Baso % (Auto) 0.2 (0.0-1.0) % Sodium 140 (136-145) mmol/L Potassium 3.9 (3.5-5.1) mmol/L Chloride 106 (98-107) mmol/L Carbon Dioxide 22 (21-32) mmol/L Anion Gap 15.9 H (7-13) mEq/L BUN 14 (7-18) mg/dL Creatinine 1.07 (0.70-1.30) mg/dL Est Cr Clr Drug Dosing 78.82 mL/min Estimated GFR (MDRD) > 60 Glucose 170 H (70-99) mg/dL POC Glucose 159 H (70-99) mg/dL Calcium 8.2 L (8.5-10.1) mg/dL 07/31/21 Range/Units 12:00 WBC (5.0-10.0) 10^3/uL RBC (4.6-6.2) 10^6/uL Hgb (14.0-18.0) g/dL Hct (40.0-54.0) % MCV (80-100) fL MCH (27.0-34.0) pg MCHC (33.0-35.0) g/dL Plt Count (150-450) 10^3/uL Neut % (Auto) (42.2-75.2) % Lymph % (Auto) (20.5-50.1) % [place] % (Auto) (2-8) % Eos % (Auto) (1.0-3.0) % Baso % (Auto) (0.0-1.0) % Sodium (136-145) mmol/L Potassium (3.5-5.1) mmol/L Chloride (98-107) mmol/L Carbon Dioxide (21-32) mmol/L Anion Gap (7-13) mEq/L BUN (7-18) mg/dL Creatinine (0.70-1.30) mg/dL Est Cr Clr Drug Dosing mL/min Estimated GFR (MDRD) Glucose (70-99) mg/dL POC Glucose 207 H (70-99) mg/dL Calcium (8.5-10.1) mg/dL Result Diagrams: 07/31/21 06:33 07/31/21 06:33 Karel Results Last 24 hrs: Microbiology 07/28/21 08:33 Aerobic Blood Culture - Preliminary Blood - Arm, Right NO GROWTH AFTER 3 DAYS Anaerobic Blood Culture - Preliminary NO GROWTH AFTER 3 DAYS 07/28/21 08:27 Aerobic Blood Culture - Preliminary Blood - Arm, Left NO GROWTH AFTER 3 DAYS Anaerobic Blood Culture - Preliminary NO GROWTH AFTER 3 DAYS Sepsis Event Note - Evaluation Sepsis Screening Result: Possible Sepsis Risk - Focused Exam Vital Signs: Vital Signs Temp Temp Pulse Pulse Resp BP BP 07/31/21 09:21 90 123/92 H 07/31/21 08:00 98.1 F 90 24 H 123/92 H 07/31/21 04:00 98.9 F 84 20 132/78 Pulse Ox 07/31/21 09:21 07/31/21 08:00 92 L 07/31/21 04:00 98 - Problem List & Annotations (1) Cellulitis of groin, right SNOMED Code(s): 23373032 Code(s): L03.314 - CELLULITIS OF GROIN Status: Acute Current Visit: Yes (2) Morbid obesity with BMI of 45.0-49.9, adult SNOMED Code(s): 113379493, 02023286394657 Code(s): E66.01 - MORBID (SEVERE) OBESITY DUE TO EXCESS CALORIES; Z68.42 - BODY MASS INDEX [BMI] 45.0-49.9, ADULT Status: Acute Current Visit: Yes (3) T2DM (type 2 diabetes mellitus) SNOMED Code(s): 95053811 Code(s): E11.9 - TYPE 2 DIABETES MELLITUS WITHOUT COMPLICATIONS Status: Acute Current Visit: Yes - Problem List Review Problem List Initiated/Reviewed/Updated: Yes - My Orders Last 24 Hours: My Active Orders 07/31/21 21:00 Insulin Glarg,Human.Rec.Analog [LantUS] 35 unit SUBCUT BEDTIME 08/01/21 08:28 CBC WITH AUTO DIFF [HEME] DAILY - Plan Plan:: Pt is a 65 yom with a significant past medical history of DM, seizure disorder, HTN and current smoker who presented to the ER due to both gluteal areas pain and right inguinal pain. Assessment and plan: Cellulitis of the right lower extremity involving the groin and leg. -This is improving with IV Vanc and Zosyn. -US of the groin shows no abscess. Doppler US of the leg shows no evidence of DVT's Sepsis secondary to # 1 above -resolved. Seizure disorder -As per pt, he has been having seizure for 20 years. Last seizre was in last month -Continue home keppra 1000mg bid -Seizure precaution Uncontrol DM with hyperglycemia -Increase lantus to 35 units bid -Insulin ss -Metformin is on hold Tobacco use disorder -Counseling -Nicotine patch HTN -COntinue home amlodipine 10mg daily, lisinopril 40mg daily, HCTZ 25mg daily and metoprolol 25mg bid -hydralazine prn DIANA - likely secondary to sepsis. Now resolved Morbid obesity - will need lifestyle modifications. DVT prophylaxis: Lovenox Code status: full
[2021-07-31] MEDS: oxyCODONE 5 MG Tab PO PRN (20:23)
[2021-07-31] MEDS ORDERED: Insulin Glarg,Human.Rec.Analog 100 Unit/ML SUBCUT SCH (21:00)
[2021-08-01] MEDS: Piperacillin/Tazobactam 3.375 GM in Sodium Chloride 0.9% 100 ML IV SCH ×3 (02:09→13:21)
[2021-08-01] MEDS: Sodium Chloride 0.9% 1,000 ML IV SCH (03:52)
[2021-08-01] MEDS: Insulin Lispro 100 Units/ML 3 ML Vial SUBCUT SCH ×2 (08:36→13:19)
[2021-08-01] MEDS: Enoxaparin 40 MG/0.4 ML Syringe SUBCUT SCH (09:27)
[2021-08-01] MEDS: Nicotine 14 MG/24 Hr Patch TRDERM SCH (09:27)
[2021-08-01] MEDS: amLODIPine 5 MG Tab PO SCH (09:28)
[2021-08-01] MEDS: oxyCODONE 5 MG Tab PO PRN (09:29)
[2021-08-01] MEDS: levETIRAcetam 500 MG Tab PO SCH (09:29)
[2021-08-01] MEDS: Metoprolol Tartrate 25 MG Tab PO SCH (09:29)
[2021-08-01] MEDS: Aspirin 81 MG Tab.EC PO SCH (10:45)
[2021-08-01 12:25] VITALS: BP 133/86; PULSE 96
--- NOTE | 2021-08-01 12:41 | PCM.PN ---
- General Info Date of Service: 08/01/21 Admission Dx/Problem (Free Text): r. leg swelling, edema Subjective Update: r. leg proximal redness improved but worse, moderate redness and associated edema is developing in r. ankle area no associated abscess no fever - Review of Systems General: Reports: Weakness. Denies: Fever Pulmonary: Denies: Shortness of Breath, Wheezing Cardiovascular: Reports: Edema (r. leg). Denies: Chest Pain Neurological: Denies: Confusion - Patient Data Vitals - Most Recent: Last Vital Signs Temp 98.8 F 08/01/21 12:23 Pulse 96 08/01/21 12:23 Resp 20 08/01/21 12:23 BP 133/86 08/01/21 12:23 Pulse Ox 96 08/01/21 12:23 Weight - Most Recent: 331 lb 1.6 oz I&O - Last 24 Hours: Intake & Output 07/31/21 08/01/21 08/01/21 22:59 06:59 14:59 Intake Total 840 600 500 Output Total 675 1275 Balance 165 -675 500 Lab Results Last 24 Hours: Laboratory Results - last 24 hr 07/31/21 07/31/21 08/01/21 Range/Units 16:27 20:47 06:43 WBC 8.0 (5.0-10.0) 10^3/uL RBC 4.32 L (4.6-6.2) 10^6/uL Hgb 12.2 L (14.0-18.0) g/dL Hct 37.4 L (40.0-54.0) % MCV 86.6 (80-100) fL MCH 28.2 (27.0-34.0) pg MCHC 32.6 L (33.0-35.0) g/dL Plt Count 202 (150-450) 10^3/uL Neut % (Auto) 60.6 (42.2-75.2) % Lymph % (Auto) 28.2 (20.5-50.1) % [place] % (Auto) 9.4 H (2-8) % Eos % (Auto) 1.5 (1.0-3.0) % Baso % (Auto) 0.3 (0.0-1.0) % Add Manual Diff Yes Neutrophils % (Manual) 53 (42-75) % Band Neutrophils % 2 % Lymphocytes % (Manual) 29 (20-50) % Monocytes % (Manual) 12 H (2-8) % Eosinophils % (Manual) 4 H (1-3) % POC Glucose 167 H 216 H (70-99) mg/dL 08/01/21 08/01/21 Range/Units 07:52 11:24 WBC (5.0-10.0) 10^3/uL RBC (4.6-6.2) 10^6/uL Hgb (14.0-18.0) g/dL Hct (40.0-54.0) % MCV (80-100) fL MCH (27.0-34.0) pg MCHC (33.0-35.0) g/dL Plt Count (150-450) 10^3/uL Neut % (Auto) (42.2-75.2) % Lymph % (Auto) (20.5-50.1) % [place] % (Auto) (2-8) % Eos % (Auto) (1.0-3.0) % Baso % (Auto) (0.0-1.0) % Add Manual Diff Neutrophils % (Manual) (42-75) % Band Neutrophils % % Lymphocytes % (Manual) (20-50) % Monocytes % (Manual) (2-8) % Eosinophils % (Manual) (1-3) % POC Glucose 145 H 215 H (70-99) mg/dL Karel Results Last 24 Hours: Microbiology 07/28/21 08:33 Aerobic Blood Culture - Preliminary Blood - Arm, Right NO GROWTH AFTER 4 DAYS Anaerobic Blood Culture - Preliminary NO GROWTH AFTER 4 DAYS 07/28/21 08:27 Aerobic Blood Culture - Preliminary Blood - Arm, Left NO GROWTH AFTER 4 DAYS Anaerobic Blood Culture - Preliminary NO GROWTH AFTER 4 DAYS Med Orders - Current: Current Medications Acetaminophen (Acetaminophen 325 Mg Tab) 650 mg PO Q4H PRN PRN Reason: Pain (Mild 1-3)/fever Albuterol (Albuterol 6.7 Gm Inhaler) 0 gm INH Q6H PRN PRN Reason: Shortness of Breath Albuterol/Ipratropium (Albuterol/Ipratropium 3.0-0.5 Mg/3 Ml Neb Soln) 3 ml NEB Q4H PRN PRN Reason: shortness of breath/wheezing Amlodipine Besylate (Amlodipine 5 Mg Tab) 10 mg PO DAILY [facility] Last Admin: 08/01/21 09:28 Dose: 10 mg Documented by: Aspirin (Aspirin 81 Mg Tab.Ec) 81 mg PO DAILY [facility] Last Admin: 08/01/21 10:45 Dose: 81 mg Documented by: Dextrose/Water (50% Dextrose In Water 50 Ml Syringe) 50 ml IVPUSH Q15M PRN PRN Reason: Hypoglycemia Enoxaparin Sodium (Enoxaparin 40 Mg/0.4 Ml Syringe) 40 mg SUBCUT DAILY [facility] Last Admin: 08/01/21 09:27 Dose: 40 mg Documented by: Glucagon (Glucagon,Human Recombinant 1 Mg Vial) 1 mg IM Q15M PRN PRN Reason: Hypoglycemia Hydralazine HCl (Hydralazine 20 Mg/Ml Sdv) 10 mg IVPUSH Q4H PRN PRN Reason: Hypertension Last Admin: 08/01/21 08:11 Dose: 10 mg Documented by: Piperacillin Sod/Tazobactam (Sod 3.375 gm/ Sodium Chloride) 100 mls @ 200 mls/hr IV Q6H [facility] Last Admin: 08/01/21 09:27 Dose: 200 mls/hr Documented by: Vancomycin HCl 1.25 gm/ Sodium (Chloride) 250 mls @ 166.667 mls/hr IV Q12H [facility] Last Admin: 08/01/21 11:01 Dose: 166.667 mls/hr Documented by: Influenza Virus Vaccine (Pharmacy To Dose - Influenza Vaccine) 1 each IM DAILY [facility] Last Admin: 08/01/21 09:44 Dose: Not Given Documented by: Insulin Glargine (Insulin Glarg,Human.Rec.Analog 100 Unit/Ml) 35 unit SUBCUT BEDTIME [facility] Last Admin: 07/31/21 20:24 Dose: 35 units Documented by: Insulin Human Lispro (Insulin Lispro 100 Units/Ml 3 Ml Vial) 0 unit SUBCUT WITHMEALSANDBED [facility]; Protocol Last Admin: 08/01/21 08:36 Dose: Not Given Documented by: Levetiracetam (Levetiracetam 500 Mg Tab) 1,000 mg PO BID [facility] Last Admin: 08/01/21 09:29 Dose: 1,000 mg Documented by: Metoprolol Tartrate (Metoprolol Tartrate 25 Mg Tab) 25 mg PO BID [facility] Last Admin: 08/01/21 09:29 Dose: 25 mg Documented by: Miscellaneous Information (Remove Patch *Nicotine*) 1 ea TRDERM DAILY [facility] Last Admin: 08/01/21 09:45 Dose: Not Given Documented by: Morphine Sulfate (Morphine 2 Mg/Ml Syringe) 2 mg IVPUSH Q4H PRN PRN Reason: Pain (severe 7-10) Nicotine (Nicotine 14 Mg/24 Hr Patch) 14 mg TRDERM DAILY [facility] Last Admin: 08/01/21 09:27 Dose: 14 mg Documented by: Ondansetron HCl (Ondansetron 4 Mg/2 Ml Sdv) 4 mg IVPUSH Q6H PRN PRN Reason: Nausea/Vomiting Last Admin: 07/29/21 11:36 Dose: 4 mg Documented by: Oxycodone HCl (Oxycodone 5 Mg Tab) 5 mg PO Q4H PRN PRN Reason: Pain (moderate 4-6) Last Admin: 08/01/21 09:29 Dose: 5 mg Documented by: Sodium Chloride (Sodium Chloride 0.9% 10 Ml Syringe) 10 ml FLUSH ASDIRECTED PRN PRN Reason: Keep Vein Open Vancomycin HCl (Pharmacy To Dose - Vancomycin) 1 dose .XX ASDIRECTED [facility] Discontinued Medications Acetaminophen (Acetaminophen 325 Mg Tab) 650 mg PO Q6H PRN PRN Reason: Pain (Mild 1-3)/fever Last Admin: 07/29/21 15:15 Dose: 650 mg Documented by: Dextrose/Water (50% Dextrose In Water 50 Ml Syringe) 50 ml IVPUSH Q15M PRN PRN Reason: Hypoglycemia Glucagon (Glucagon,Human Recombinant 1 Mg Vial) 1 mg IM Q15M PRN PRN Reason: Hypoglycemia Hydrochlorothiazide (Hydrochlorothiazide 25 Mg Tab) 25 mg PO DAILY [facility] Last Admin: 07/29/21 09:05 Dose: 25 mg Documented by: Sodium Chloride (Normal Saline) 1,000 mls @ 250 mls/hr IV BOLUS ONE; Protocol Stop: 07/28/21 11:53 Last Admin: 07/28/21 08:32 Dose: 250 mls/hr Documented by: Vancomycin HCl 2,500 gm/ (Dextrose/Water) 250 mls @ 167 mls/hr IV ONETIME ONE Stop: 07/28/21 09:23 Last Admin: 07/28/21 09:18 Dose: Not Given Documented by: Piperacillin Sod/Tazobactam (Sod 4.5 gm/ Sodium Chloride) 100 mls @ 200 mls/hr IV STAT ONE Stop: 07/28/21 08:23 Last Admin: 07/28/21 08:26 Dose: 200 mls/hr Documented by: Vancomycin HCl 1,500 mg/ (Sodium Chloride) 500 mls @ 333.333 mls/hr IV ONETIME ONE Stop: 07/28/21 10:00 Last Admin: 07/28/21 09:17 Dose: 333.333 mls/hr Documented by: Vancomycin HCl 1.5 gm/ Sodium (Chloride) 250 mls @ 166.667 mls/hr IV Q12H [facility] Lactated Ringer's (Ringers, Lactated) 1,000 mls @ 125 mls/hr IV ASDIRECTED [facility] Last Admin: 07/31/21 03:48 Dose: 125 mls/hr Documented by: Piperacillin Sod/Tazobactam (Sod 3.375 gm/ Sodium Chloride) 100 mls @ 200 mls/hr IV Q6H [facility] Last Admin: 07/28/21 23:08 Dose: Not Given Documented by: Sodium Chloride (Normal Saline) 1,000 mls @ 250 mls/hr IV ONETIME ONE Stop: 07/28/21 17:57 Last Admin: 07/28/21 14:05 Dose: 250 mls/hr Documented by: Vancomycin HCl (Vancomycin 1.5 Gm/300 Ml) 300 mls @ 200 mls/hr IV Q12H [facility] Last Admin: 07/29/21 21:42 Dose: 200 mls/hr Documented by: Vancomycin HCl 1.5 gm/ Premix 300 mls @ 200 mls/hr IV Q12H [facility] Last Admin: 07/30/21 09:54 Dose: Not Given Documented by: Sodium Chloride (Normal Saline) 1,000 mls @ 75 mls/hr IV ASDIRECTED [facility] Last Admin: 08/01/21 03:52 Dose: 75 mls/hr Documented by: Ibuprofen (Ibuprofen 200 Mg Tab) 200 mg PO Q8H PRN PRN Reason: Fever Last Admin: 07/30/21 04:22 Dose: 200 mg Documented by: Insulin Glargine (Insulin Glarg,Human.Rec.Analog 100 Unit/Ml) 30 unit SUBCUT BID [facility] Last Admin: 07/31/21 09:31 Dose: 30 units Documented by: Insulin Human Regular (Insulin Regular, Human 100 Units/Ml 3 Ml Vial) 5 unit IV ONETIME ONE Stop: 07/28/21 09:23 Last Admin: 07/28/21 12:21 Dose: Not Given Documented by: Lisinopril (Lisinopril 20 Mg Tab) 40 mg PO DAILY [facility] Last Admin: 07/29/21 09:07 Dose: 40 mg Documented by: Sodium Chloride (Sodium Chloride 0.9% 10 Ml Syringe) 10 ml FLUSH ASDIRECTED PRN PRN Reason: Keep Vein Open - Exam General: Alert, Oriented Neck: Supple Lungs: Clear to Auscultation, Normal Respiratory Effort Cardiovascular: Regular Rate, Regular Rhythm GI/Abdominal Exam: Other (obese) Extremities: No Pedal Edema Psy/Mental Status: Alert, Normal Affect, Normal Mood - Patient Data Lab Results Last 24 hrs: Laboratory Results - last 24 hr 07/31/21 07/31/21 08/01/21 Range/Units 16:27 20:47 06:43 WBC 8.0 (5.0-10.0) 10^3/uL RBC 4.32 L (4.6-6.2) 10^6/uL Hgb 12.2 L (14.0-18.0) g/dL Hct 37.4 L (40.0-54.0) % MCV 86.6 (80-100) fL MCH 28.2 (27.0-34.0) pg MCHC 32.6 L (33.0-35.0) g/dL Plt Count 202 (150-450) 10^3/uL Neut % (Auto) 60.6 (42.2-75.2) % Lymph % (Auto) 28.2 (20.5-50.1) % [place] % (Auto) 9.4 H (2-8) % Eos % (Auto) 1.5 (1.0-3.0) % Baso % (Auto) 0.3 (0.0-1.0) % Add Manual Diff Yes Neutrophils % (Manual) 53 (42-75) % Band Neutrophils % 2 % Lymphocytes % (Manual) 29 (20-50) % Monocytes % (Manual) 12 H (2-8) % Eosinophils % (Manual) 4 H (1-3) % POC Glucose 167 H 216 H (70-99) mg/dL 08/01/21 08/01/21 Range/Units 07:52 11:24 WBC (5.0-10.0) 10^3/uL RBC (4.6-6.2) 10^6/uL Hgb (14.0-18.0) g/dL Hct (40.0-54.0) % MCV (80-100) fL MCH (27.0-34.0) pg MCHC (33.0-35.0) g/dL Plt Count (150-450) 10^3/uL Neut % (Auto) (42.2-75.2) % Lymph % (Auto) (20.5-50.1) % [place] % (Auto) (2-8) % Eos % (Auto) (1.0-3.0) % Baso % (Auto) (0.0-1.0) % Add Manual Diff Neutrophils % (Manual) (42-75) % Band Neutrophils % % Lymphocytes % (Manual) (20-50) % Monocytes % (Manual) (2-8) % Eosinophils % (Manual) (1-3) % POC Glucose 145 H 215 H (70-99) mg/dL Result Diagrams: 08/01/21 06:43 07/31/21 06:33 Karel Results Last 24 hrs: Microbiology 07/28/21 08:33 Aerobic Blood Culture - Preliminary Blood - Arm, Right NO GROWTH AFTER 4 DAYS Anaerobic Blood Culture - Preliminary NO GROWTH AFTER 4 DAYS 07/28/21 08:27 Aerobic Blood Culture - Preliminary Blood - Arm, Left NO GROWTH AFTER 4 DAYS Anaerobic Blood Culture - Preliminary NO GROWTH AFTER 4 DAYS Sepsis Event Note - Evaluation Sepsis Screening Result: Possible Sepsis Risk - Focused Exam Vital Signs: Vital Signs Temp Pulse Pulse Resp BP BP Pulse Ox 08/01/21 12:23 98.8 F 96 20 133/86 96 08/01/21 11:00 08/01/21 09:29 104 H 138/91 H 08/01/21 09:28 138/91 H 08/01/21 08:00 98.0 F 89 20 148/106 H 96 08/01/21 04:00 97.9 F 86 16 142/81 H 95 Pulse Ox 08/01/21 12:23 11/10/21 11:00 95 08/01/21 09:29 08/01/21 09:28 08/01/21 08:00 08/01/21 04:00 - Problem List & Annotations (1) Cellulitis of right ankle SNOMED Code(s): 47115601972862346 Code(s): L03.115 - CELLULITIS OF RIGHT LOWER LIMB Status: Acute Current Visit: Yes (2) Cellulitis of groin, right SNOMED Code(s): 34566028 Code(s): L03.314 - CELLULITIS OF GROIN Status: Acute Current Visit: Yes (3) Morbid obesity with BMI of 45.0-49.9, adult SNOMED Code(s): 925828029, 08545575594817 Code(s): E66.01 - MORBID (SEVERE) OBESITY DUE TO EXCESS CALORIES; Z68.42 - BODY MASS INDEX [BMI] 45.0-49.9, ADULT Status: Acute Current Visit: Yes (4) T2DM (type 2 diabetes mellitus) SNOMED Code(s): 36725326 Code(s): E11.9 - TYPE 2 DIABETES MELLITUS WITHOUT COMPLICATIONS Status: Acute Current Visit: Yes (5) Hyperlipidemia SNOMED Code(s): 35302652 Code(s): E78.5 - HYPERLIPIDEMIA, UNSPECIFIED Status: Acute Current Visit: No (6) Hypertension SNOMED Code(s): 08750327 Code(s): I10 - ESSENTIAL (PRIMARY) HYPERTENSION Status: Acute Current Visit: No (7) Seizure SNOMED Code(s): 86635193 Code(s): R56.9 - UNSPECIFIED CONVULSIONS Status: Acute Current Visit: No - Problem List Review Problem List Initiated/Reviewed/Updated: Yes - My Orders Last 24 Hours: My Active Orders 08/01/21 12:29 Venous Doppler Lwr Ext Rt [US] Routine 08/02/21 05:15 BASIC METABOLIC PANEL,BMP [CHEM] AM CBC WITH AUTO DIFF [HEME] AM - Plan Plan:: Pt is a 65 yom with a significant past medical history of DM, seizure disorder, HTN and current smoker who presented to the ER due to both gluteal areas pain and right inguinal pain. Assessment and plan: Cellulitis of the right lower extremity involving the groin is improved continued redness r. ankle area. treat with IV Vanc and Zosyn. -US of the groin shows no abscess. Doppler US of the leg shows no evidence of DVT's Sepsis secondary to # 1 above -resolved. Seizure disorder -As per pt, he has been having seizure for 20 years. Last seizre was in last month -Continue home keppra 1000mg bid -Seizure precaution Uncontrol DM with hyperglycemia -continue lantus -Insulin ss -Metformin is on hold Tobacco use disorder -Counseling -Nicotine patch HTN -COntinue home amlodipine 10mg daily, lisinopril 40mg daily, HCTZ 25mg daily and metoprolol 25mg bid -hydralazine prn DIANA - likely secondary to sepsis. Now resolved recheck bmp Morbid obesity - will need lifestyle modifications. DVT prophylaxis: Lovenox Code status: full
--- NOTE | 2021-08-01 13:07 | PCM.DCSUM1 ---
Discharge Summary - Hospital Course Free Text/Narrative:: Cellulitis of the right lower extremity involving the groin is improved continued redness r. ankle area. treated with IV Vanc and Zosyn. -US of the groin shows no abscess. Doppler US of the leg shows no evidence of DVT's will finish tx with Linezolid Sepsis secondary to # 1 above -resolved. Seizure disorder -As per pt, he has been having seizure for 20 years. Last seizre was in last month -Continue home keppra 1000mg bid Uncontrol DM with hyperglycemia -continue lantus, metformin Tobacco use disorder -Counseling -Nicotine patch HTN -COntinue home amlodipine 10mg daily, lisinopril 40mg daily, HCTZ 25mg daily and metoprolol 25mg bid DIANA - likely secondary to sepsis. Now resolved Morbid obesity - will need lifestyle modifications. Diagnosis: Stroke: No - Discharge Data Discharge Date: 08/01/21 Discharge Disposition: Home, Self-Care 01 Condition: Good - Referral to Home Health Primary Care Physician: PCP None - Discharge Diagnosis/Problem(s) (1) Cellulitis of right ankle SNOMED Code(s): 38252984394094368 ICD Code: L03.115 - CELLULITIS OF RIGHT LOWER LIMB Status: Acute Current Visit: Yes (2) Cellulitis of groin, right SNOMED Code(s): 50813788 ICD Code: L03.314 - CELLULITIS OF GROIN Status: Acute Current Visit: Yes (3) Morbid obesity with BMI of 45.0-49.9, adult SNOMED Code(s): 225930297, 03883215348096 ICD Code: E66.01 - MORBID (SEVERE) OBESITY DUE TO EXCESS CALORIES; Z68.42 - BODY MASS INDEX [BMI] 45.0-49.9, ADULT Status: Acute Current Visit: Yes (4) T2DM (type 2 diabetes mellitus) SNOMED Code(s): 31512052 ICD Code: E11.9 - TYPE 2 DIABETES MELLITUS WITHOUT COMPLICATIONS Status: Acute Current Visit: Yes (5) Hyperlipidemia SNOMED Code(s): 24859831 ICD Code: E78.5 - HYPERLIPIDEMIA, UNSPECIFIED Status: Acute Current Visit: No (6) Hypertension SNOMED Code(s): 49955548 ICD Code: I10 - ESSENTIAL (PRIMARY) HYPERTENSION Status: Acute Current Visit: No (7) Seizure SNOMED Code(s): 11130162 ICD Code: R56.9 - UNSPECIFIED CONVULSIONS Status: Acute Current Visit: No - Patient Instructions Diet: Heart Healthy Diet Activity: As Tolerated - Discharge Plan *PRESCRIPTION DRUG MONITORING PROGRAM REVIEWED*: No *COPY OF PRESCRIPTION DRUG MONITORING REPORT IN PATIENT CHAS: No Prescriptions/Med Rec: Linezolid 600 mg PO BID #14 tablet Home Medications: Home Meds Aspirin [Adult Low Dose Aspirin EC] 81 mg PO DAILY 10/01/13 [History] Nitroglycerin [Nitrostat] 0.4 mg SL .[id number] PRN 04/14/14 [History] metFORMIN HCl [Metformin HCl] 500 mg PO WITHBREAKFAST 01/14/16 [History] Acetaminophen [Acetaminophen Extra Strength] 500 mg PO Q6H PRN 05/18/19 [History] Albuterol [Proventil HFA] 2 puff INH Q6H PRN 05/18/19 [History] Metoprolol Tartrate [Lopressor] 25 mg PO BID 05/18/19 [History] amLODIPine Besylate [Norvasc] 10 mg PO DAILY 05/18/19 [History] hydroCHLOROthiazide [Hydrochlorothiazide] 25 mg PO DAILY 05/18/19 [History] levETIRAcetam [Keppra] 1,000 mg PO BID 05/18/19 [History] lisinopriL [Zestril] 40 mg PO DAILY 05/18/19 [History] Insulin Glarg,Human.Rec.Analog [Lantus] 35 unit SUBCUT BEDTIME ml 08/01/21 [Rx] Linezolid 600 mg PO BID #14 tablet 08/01/21 [Rx] Forms: ED Department Discharge - Discharge Summary/Plan Comment DC Time >30 min.: No Total # of Minutes for Discharge Time: 20 min - General Info Date of Service: 08/01/21 Subjective Update: r. leg proximal redness improved but worse, moderate redness and associated edema is developing in r. ankle area no associated abscess no fever - Review of Systems General: Denies: Fever Pulmonary: Denies: Shortness of Breath Cardiovascular: Reports: Edema. Denies: Chest Pain Genitourinary: Denies: Dysuria Neurological: Denies: Confusion - Patient Data Vitals - Most Recent: Last Vital Signs Temp 98.8 F 08/01/21 12:23 Pulse 96 11/10/21 12:23 Resp 20 08/01/21 12:23 BP 133/86 08/01/21 12:23 Pulse Ox 96 08/01/21 12:23 Weight - Most Recent: 331 lb 1.6 oz I&O - Last 24 hours: Intake & Output 07/31/21 08/01/21 08/01/21 22:59 06:59 14:59 Intake Total 840 600 500 Output Total 675 1275 200 Balance 165 -675 300 Lab Results - Last 24 hrs: Laboratory Results - last 24 hr 07/31/21 07/31/21 08/01/21 Range/Units 16:27 20:47 06:43 WBC 8.0 (5.0-10.0) 10^3/uL RBC 4.32 L (4.6-6.2) 10^6/uL Hgb 12.2 L (14.0-18.0) g/dL Hct 37.4 L (40.0-54.0) % MCV 86.6 (80-100) fL MCH 28.2 (27.0-34.0) pg MCHC 32.6 L (33.0-35.0) g/dL Plt Count 202 (150-450) 10^3/uL Neut % (Auto) 60.6 (42.2-75.2) % Lymph % (Auto) 28.2 (20.5-50.1) % Vermilion % (Auto) 9.4 H (2-8) % Eos % (Auto) 1.5 (1.0-3.0) % Baso % (Auto) 0.3 (0.0-1.0) % Add Manual Diff Yes Neutrophils % (Manual) 53 (42-75) % Band Neutrophils % 2 % Lymphocytes % (Manual) 29 (20-50) % Monocytes % (Manual) 12 H (2-8) % Eosinophils % (Manual) 4 H (1-3) % POC Glucose 167 H 216 H (70-99) mg/dL 08/01/21 08/01/21 Range/Units 07:52 11:24 WBC (5.0-10.0) 10^3/uL RBC (4.6-6.2) 10^6/uL Hgb (14.0-18.0) g/dL Hct (40.0-54.0) % MCV (80-100) fL MCH (27.0-34.0) pg MCHC (33.0-35.0) g/dL Plt Count (150-450) 10^3/uL Neut % (Auto) (42.2-75.2) % Lymph % (Auto) (20.5-50.1) % Vermilion % (Auto) (2-8) % Eos % (Auto) (1.0-3.0) % Baso % (Auto) (0.0-1.0) % Add Manual Diff Neutrophils % (Manual) (42-75) % Band Neutrophils % % Lymphocytes % (Manual) (20-50) % Monocytes % (Manual) (2-8) % Eosinophils % (Manual) (1-3) % POC Glucose 145 H 215 H (70-99) mg/dL [facility] Results - Last 24 hrs: Microbiology 07/28/21 08:33 Aerobic Blood Culture - Preliminary Blood - Arm, Right NO GROWTH AFTER 4 DAYS Anaerobic Blood Culture - Preliminary NO GROWTH AFTER 4 DAYS 07/28/21 08:27 Aerobic Blood Culture - Preliminary Blood - Arm, Left NO GROWTH AFTER 4 DAYS Anaerobic Blood Culture - Preliminary NO GROWTH AFTER 4 DAYS Med Orders - Current: Current Medications Acetaminophen (Acetaminophen 325 Mg Tab) 650 mg PO Q4H PRN PRN Reason: Pain (Mild 1-3)/fever Albuterol (Albuterol 6.7 Gm Inhaler) 0 gm INH Q6H PRN PRN Reason: Shortness of Breath Albuterol/Ipratropium (Albuterol/Ipratropium 3.0-0.5 Mg/3 Ml Neb Soln) 3 ml NEB Q4H PRN PRN Reason: shortness of breath/wheezing Amlodipine Besylate (Amlodipine 5 Mg Tab) 10 mg PO DAILY [facility] Last Admin: 08/01/21 09:28 Dose: 10 mg Documented by: Aspirin (Aspirin 81 Mg Tab.Ec) 81 mg PO DAILY [facility] Last Admin: 08/01/21 10:45 Dose: 81 mg Documented by: Dextrose/Water (50% Dextrose In Water 50 Ml Syringe) 50 ml IVPUSH Q15M PRN PRN Reason: Hypoglycemia Enoxaparin Sodium (Enoxaparin 40 Mg/0.4 Ml Syringe) 40 mg SUBCUT DAILY [facility] Last Admin: 08/01/21 09:27 Dose: 40 mg Documented by: Glucagon (Glucagon,Human Recombinant 1 Mg Vial) 1 mg IM Q15M PRN PRN Reason: Hypoglycemia Hydralazine HCl (Hydralazine 20 Mg/Ml Sdv) 10 mg IVPUSH Q4H PRN PRN Reason: Hypertension Last Admin: 08/01/21 08:11 Dose: 10 mg Documented by: Piperacillin Sod/Tazobactam (Sod 3.375 gm/ Sodium Chloride) 100 mls @ 200 mls/hr IV Q6H [facility] Last Admin: 08/01/21 09:27 Dose: 200 mls/hr Documented by: Vancomycin HCl 1.25 gm/ Sodium (Chloride) 250 mls @ 166.667 mls/hr IV Q12H [facility] Last Admin: 08/01/21 11:01 Dose: 166.667 mls/hr Documented by: Influenza Virus Vaccine (Pharmacy To Dose - Influenza Vaccine) 1 each IM DAILY [facility] Last Admin: 08/01/21 09:44 Dose: Not Given Documented by: Insulin Glargine (Insulin Glarg,Human.Rec.Analog 100 Unit/Ml) 35 unit SUBCUT BEDTIME [facility] Last Admin: 07/31/21 20:24 Dose: 35 units Documented by: Insulin Human Lispro (Insulin Lispro 100 Units/Ml 3 Ml Vial) 0 unit SUBCUT WITHMEALSANDBED [facility]; Protocol Last Admin: 08/01/21 08:36 Dose: Not Given Documented by: Levetiracetam (Levetiracetam 500 Mg Tab) 1,000 mg PO BID [facility] Last Admin: 08/01/21 09:29 Dose: 1,000 mg Documented by: Metoprolol Tartrate (Metoprolol Tartrate 25 Mg Tab) 25 mg PO BID [facility] Last Admin: 08/01/21 09:29 Dose: 25 mg Documented by: Miscellaneous Information (Remove Patch *Nicotine*) 1 ea TRDERM DAILY [facility] Last Admin: 08/01/21 09:45 Dose: Not Given Documented by: Morphine Sulfate (Morphine 2 Mg/Ml Syringe) 2 mg IVPUSH Q4H PRN PRN Reason: Pain (severe 7-10) Nicotine (Nicotine 14 Mg/24 Hr Patch) 14 mg TRDERM DAILY [facility] Last Admin: 08/01/21 09:27 Dose: 14 mg Documented by: Ondansetron HCl (Ondansetron 4 Mg/2 Ml Sdv) 4 mg IVPUSH Q6H PRN PRN Reason: Nausea/Vomiting Last Admin: 07/29/21 11:36 Dose: 4 mg Documented by: Oxycodone HCl (Oxycodone 5 Mg Tab) 5 mg PO Q4H PRN PRN Reason: Pain (moderate 4-6) Last Admin: 08/01/21 09:29 Dose: 5 mg Documented by: Sodium Chloride (Sodium Chloride 0.9% 10 Ml Syringe) 10 ml FLUSH ASDIRECTED PRN PRN Reason: Keep Vein Open Vancomycin HCl (Pharmacy To Dose - Vancomycin) 1 dose .XX ASDIRECTED [facility] Discontinued Medications Acetaminophen (Acetaminophen 325 Mg Tab) 650 mg PO Q6H PRN PRN Reason: Pain (Mild 1-3)/fever Last Admin: 07/29/21 15:15 Dose: 650 mg Documented by: Dextrose/Water (50% Dextrose In Water 50 Ml Syringe) 50 ml IVPUSH Q15M PRN PRN Reason: Hypoglycemia Glucagon (Glucagon,Human Recombinant 1 Mg Vial) 1 mg IM Q15M PRN PRN Reason: Hypoglycemia Hydrochlorothiazide (Hydrochlorothiazide 25 Mg Tab) 25 mg PO DAILY [facility] Last Admin: 07/29/21 09:05 Dose: 25 mg Documented by: Sodium Chloride (Normal Saline) 1,000 mls @ 250 mls/hr IV BOLUS ONE; Protocol Stop: 07/28/21 11:53 Last Admin: 07/28/21 08:32 Dose: 250 mls/hr Documented by: Vancomycin HCl 2,500 gm/ (Dextrose/Water) 250 mls @ 167 mls/hr IV ONETIME ONE Stop: 07/28/21 09:23 Last Admin: 07/28/21 09:18 Dose: Not Given Documented by: Piperacillin Sod/Tazobactam (Sod 4.5 gm/ Sodium Chloride) 100 mls @ 200 mls/hr IV STAT ONE Stop: 07/28/21 08:23 Last Admin: 07/28/21 08:26 Dose: 200 mls/hr Documented by: Vancomycin HCl 1,500 mg/ (Sodium Chloride) 500 mls @ 333.333 mls/hr IV ONETIME ONE Stop: 07/28/21 10:00 Last Admin: 07/28/21 09:17 Dose: 333.333 mls/hr Documented by: Vancomycin HCl 1.5 gm/ Sodium (Chloride) 250 mls @ 166.667 mls/hr IV Q12H [facility] Lactated Ringer's (Ringers, Lactated) 1,000 mls @ 125 mls/hr IV ASDIRECTED [facility] Last Admin: 07/31/21 03:48 Dose: 125 mls/hr Documented by: Piperacillin Sod/Tazobactam (Sod 3.375 gm/ Sodium Chloride) 100 mls @ 200 mls/hr IV Q6H [facility] Last Admin: 07/28/21 23:08 Dose: Not Given Documented by: Sodium Chloride (Normal Saline) 1,000 mls @ 250 mls/hr IV ONETIME ONE Stop: 07/28/21 17:57 Last Admin: 07/28/21 14:05 Dose: 250 mls/hr Documented by: Vancomycin HCl (Vancomycin 1.5 Gm/300 Ml) 300 mls @ 200 mls/hr IV Q12H [facility] Last Admin: 07/29/21 21:42 Dose: 200 mls/hr Documented by: Vancomycin HCl 1.5 gm/ Premix 300 mls @ 200 mls/hr IV Q12H [facility] Last Admin: 07/30/21 09:54 Dose: Not Given Documented by: Sodium Chloride (Normal Saline) 1,000 mls @ 75 mls/hr IV ASDIRECTED [facility] Last Admin: 08/01/21 03:52 Dose: 75 mls/hr Documented by: Ibuprofen (Ibuprofen 200 Mg Tab) 200 mg PO Q8H PRN PRN Reason: Fever Last Admin: 07/30/21 04:22 Dose: 200 mg Documented by: Insulin Glargine (Insulin Glarg,Human.Rec.Analog 100 Unit/Ml) 30 unit SUBCUT BID [facility] Last Admin: 07/31/21 09:31 Dose: 30 units Documented by: Insulin Human Regular (Insulin Regular, Human 100 Units/Ml 3 Ml Vial) 5 unit IV ONETIME ONE Stop: 07/28/21 09:23 Last Admin: 07/28/21 12:21 Dose: Not Given Documented by: Lisinopril (Lisinopril 20 Mg Tab) 40 mg PO DAILY [facility] Last Admin: 07/29/21 09:07 Dose: 40 mg Documented by: Sodium Chloride (Sodium Chloride 0.9% 10 Ml Syringe) 10 ml FLUSH ASDIRECTED PRN PRN Reason: Keep Vein Open - Exam General: Reports: Alert, Oriented Neck: Reports: Supple Lungs: Reports: Clear to Auscultation, Normal Respiratory Effort Cardiovascular: Reports: Regular Rate, Regular Rhythm GI/Abdominal Exam: Normal Bowel Sounds, Soft, Non-Tender Extremities: Other (r. leg ankle edema with redness) Skin: Reports: Warm Neurological: Reports: No New Focal Deficit
== END 2021-08-01 16:00 | disposition home or self-care (01) | DRG 872 ==
LOC: DL.ED 06:29 → DL.MS 10:57
PROVIDERS: ADMIT Internal Medicine; ATTEND Hospitalist
DX: K42.9 Umbilical hernia without obstruction or gangrene (principal); A41.9 Sepsis, unspecified organism; L03.314 Cellulitis of groin; D72.829 Elevated white blood cell count, unspecified; Z68.42 Body mass index [BMI] 45.0-49.9, adult; E11.9 Type 2 diabetes mellitus without complications; N17.9 Acute kidney failure, unspecified; E78.00 Pure hypercholesterolemia, unspecified; G40.909 Epilepsy, unspecified, not intractable, without status epilepticus; E11.65 Type 2 diabetes mellitus with hyperglycemia; R11.0 Nausea; F17.210 Nicotine dependence, cigarettes, uncomplicated; Z79.82 Long term (current) use of aspirin; I10 Essential (primary) hypertension; Z79.899 Other long term (current) drug therapy; Z98.62 Peripheral vascular angioplasty status; R29.6 Repeated falls; W19.XXXA Unspecified fall, initial encounter; Z20.822 Contact with and (suspected) exposure to COVID-19; E66.01 Morbid (severe) obesity due to excess calories; E78.5 Hyperlipidemia, unspecified; I25.10 Atherosclerotic heart disease of native coronary artery without angina pectoris; Z79.4 Long term (current) use of insulin
CPT/HCPCS: 0240U; 36415; 71045; 72131; 72192; 76881; 80048; 80053; 80202; 80307; 81001; 82009; 82800; 82947; 83605; 83690; 83735; 85025; 87040; 90471; 90686; 93970; 96365; 96367; 99285; A9270-GY; G0008; J0360; J1650; J1815-GY; J2405; J2543; J3370; J7030; J7040; J7050; J7120

== ENCOUNTER 2021-10-25 16:30 | Inpatient (IN) | payer MEDICARE, MEDICAID ==
[2021-10-25 17:37] LABS: CORONAVIRUS COVID-19 NAA POSITIVE (NEGATIVE)
[2021-10-25 18:56] LABS: PTT,PARTIAL THROMBOPLSTIN TIME 25.5 SEC (22.0-34.0)
[2021-10-25 18:57] LABS: ANION GAP 13.3 mEq/L (7-13); CHLORIDE,CL 103 mmol/L (98-107); SODIUM,NA 134 mmol/L (136-145)
[2021-10-25] MEDS ORDERED: Sodium Chloride 0.9% 1,000 ML IV ONE ×2 (19:05→20:27)
[2021-10-25] MEDS: Sodium Chloride 0.9% 10 ML Syringe FLUSH PRN (19:41)
[2021-10-25] MEDS ORDERED: Iopamidol 755 Mg/ML 100 ML Bottle IVPUSH ONE (19:45)
[2021-10-25] MEDS ORDERED: 50% Dextrose in Water 50 ML Syringe IVPUSH PRN ×2 (22:20→22:22)
[2021-10-25] MEDS ORDERED: Potassium Chloride 10 MEQ Tab.ER PO ONE (22:21)
[2021-10-25] MEDS ORDERED: Glucagon,Human Recombinant 1 MG Vial IM PRN (22:22)
[2021-10-25] MEDS ORDERED: Temazepam 15 MG Cap PO PRN (22:27)
[2021-10-25] MEDS ORDERED: Acetaminophen 325 MG Tab PO PRN (22:27)
[2021-10-25] MEDS ORDERED: Docusate Sodium 100 MG Cap PO PRN (22:27)
[2021-10-25] MEDS ORDERED: Ondansetron 4 MG/2 ML SDV IVPUSH PRN (22:27)
[2021-10-25] MEDS ORDERED: REMDESIVIR 200 MG in Sodium Chloride 0.9% 250 ML IV ONE (22:33)
[2021-10-25] MEDS ORDERED: Insulin Glarg,Human.Rec.Analog 100 Unit/ML SUBCUT ONE (22:48)
[2021-10-25] MEDS: Enoxaparin 40 MG/0.4 ML Syringe SUBCUT SCH (23:41)
[2021-10-25] MEDS: Metoprolol Tartrate 25 MG Tab PO SCH (23:42)
[2021-10-25] MEDS: levETIRAcetam 500 MG Tab PO SCH (23:43)
[2021-10-26] MEDS: NS + KCl 20mEq/L 1,000 ML IV SCH ×3 (00:40→17:23)
[2021-10-26 06:55] LABS: ANION GAP 12.2 mEq/L (7-13); CHLORIDE,CL 109 mmol/L (98-107); SODIUM,NA 138 mmol/L (136-145)
[2021-10-26] MEDS: amLODIPine 5 MG Tab PO SCH (08:47)
[2021-10-26] MEDS: Aspirin 81 MG Tab.EC PO SCH (08:48)
[2021-10-26] MEDS: Metoprolol Tartrate 25 MG Tab PO SCH ×2 (08:48→22:12)
[2021-10-26] MEDS: levETIRAcetam 500 MG Tab PO SCH ×2 (08:49→22:10)
[2021-10-26] MEDS: Enoxaparin 40 MG/0.4 ML Syringe SUBCUT SCH ×2 (08:50→22:12)
[2021-10-26] MEDS: Insulin Lispro 100 Units/ML 3 ML Vial SUBCUT SCH ×4 (08:53→22:09)
[2021-10-26] MEDS: Dexamethasone 6 MG TABLET PO SCH (11:17)
[2021-10-26] MEDS: cefTRIAXone 1 GM in Sodium Chloride 0.9% 50 ML IV SCH (11:18)
[2021-10-26] MEDS: Azithromycin 250 MG Tab PO SCH (11:18)
[2021-10-26] MEDS: Insulin Glarg,Human.Rec.Analog 100 Unit/ML SUBCUT SCH (22:11)
[2021-10-26] MEDS: REMDESIVIR 100 MG in Sodium Chloride 0.9% 100 ML IV SCH (23:13)
[2021-10-27] MEDS: NS + KCl 20mEq/L 1,000 ML IV SCH (01:48)
[2021-10-27 07:06] LABS: ANION GAP 13.3 mEq/L (7-13); CHLORIDE,CL 108 mmol/L (98-107); SODIUM,NA 138 mmol/L (136-145)
[2021-10-27] MEDS: Insulin Lispro 100 Units/ML 3 ML Vial SUBCUT SCH ×4 (09:11→21:21)
[2021-10-27] MEDS: amLODIPine 5 MG Tab PO SCH (09:14)
[2021-10-27] MEDS: Azithromycin 250 MG Tab PO SCH (09:14)
[2021-10-27] MEDS: Aspirin 81 MG Tab.EC PO SCH (09:14)
[2021-10-27] MEDS: Metoprolol Tartrate 25 MG Tab PO SCH ×2 (09:15→21:25)
[2021-10-27] MEDS: Enoxaparin 40 MG/0.4 ML Syringe SUBCUT SCH ×2 (09:15→21:26)
[2021-10-27] MEDS: Dexamethasone 6 MG TABLET PO SCH (09:15)
[2021-10-27] MEDS: levETIRAcetam 500 MG Tab PO SCH ×2 (09:15→21:25)
[2021-10-27] MEDS: cefTRIAXone 1 GM in Sodium Chloride 0.9% 50 ML IV SCH (12:14)
[2021-10-27] MEDS: Hydrochlorothiazide 25 MG Tab PO SCH (12:15)
[2021-10-27] MEDS: Insulin Glarg,Human.Rec.Analog 100 Unit/ML SUBCUT SCH (21:23)
[2021-10-27] MEDS: Sodium Chloride 0.9% 10 ML Syringe FLUSH PRN ×4 (22:34→23:50)
[2021-10-27] MEDS: REMDESIVIR 100 MG in Sodium Chloride 0.9% 100 ML IV SCH (22:34)
[2021-10-28 06:26] LABS: ANION GAP 13.9 mEq/L (7-13); CHLORIDE,CL 105 mmol/L (98-107); SODIUM,NA 137 mmol/L (136-145)
[2021-10-28] MEDS: Azithromycin 250 MG Tab PO SCH (08:33)
[2021-10-28] MEDS: Hydrochlorothiazide 25 MG Tab PO SCH (08:33)
[2021-10-28] MEDS: Metoprolol Tartrate 25 MG Tab PO SCH ×2 (08:34→21:07)
[2021-10-28] MEDS: levETIRAcetam 500 MG Tab PO SCH ×2 (08:34→21:07)
[2021-10-28] MEDS: amLODIPine 5 MG Tab PO SCH (08:34)
[2021-10-28] MEDS: Dexamethasone 6 MG TABLET PO SCH (08:35)
[2021-10-28] MEDS: Aspirin 81 MG Tab.EC PO SCH (08:35)
[2021-10-28] MEDS: Insulin Lispro 100 Units/ML 3 ML Vial SUBCUT SCH ×4 (08:36→21:04)
[2021-10-28] MEDS: Enoxaparin 40 MG/0.4 ML Syringe SUBCUT SCH ×2 (08:38→21:12)
[2021-10-28] MEDS: cefTRIAXone 1 GM in Sodium Chloride 0.9% 50 ML IV SCH (11:00)
[2021-10-28] MEDS: Lisinopril 20 MG Tab PO SCH (15:50)
[2021-10-28] MEDS ORDERED: Insulin Glarg,Human.Rec.Analog 100 Unit/ML SUBCUT SCH (21:00)
[2021-10-29 07:06] LABS: ANION GAP 14.1 mEq/L (7-13); CHLORIDE,CL 104 mmol/L (98-107); SODIUM,NA 138 mmol/L (136-145)
[2021-10-29] MEDS: Enoxaparin 40 MG/0.4 ML Syringe SUBCUT SCH (08:36)
[2021-10-29] MEDS: Azithromycin 250 MG Tab PO SCH (08:37)
[2021-10-29] MEDS: Hydrochlorothiazide 25 MG Tab PO SCH (08:38)
[2021-10-29] MEDS: levETIRAcetam 500 MG Tab PO SCH (08:38)
[2021-10-29] MEDS: Insulin Lispro 100 Units/ML 3 ML Vial SUBCUT SCH ×2 (08:39→12:10)
[2021-10-29] MEDS: Aspirin 81 MG Tab.EC PO SCH (08:39)
[2021-10-29] MEDS: Lisinopril 20 MG Tab PO SCH (08:42)
[2021-10-29] MEDS: amLODIPine 5 MG Tab PO SCH (08:42)
[2021-10-29] MEDS: Metoprolol Tartrate 25 MG Tab PO SCH (08:42)
[2021-10-29] MEDS: cefTRIAXone 1 GM in Sodium Chloride 0.9% 50 ML IV SCH (12:11)
[2021-10-29 13:28] VITALS: BP 128/81; PULSE 59
== END 2021-10-29 12:45 | disposition home or self-care (01) | DRG 177 ==
LOC: DL.ED 16:30 → DL.MS 21:20
PROVIDERS: ADMIT Internal Medicine; ATTEND Internal Medicine
PROC: 8E0ZXY6 Isolation (ICD-10-PCS; principal; 2021-10-25)
PROC: XW033E5 Introduction of Remdesivir Anti-infective into Peripheral Vein, Percutaneous Approach, New Technology Group 5 (ICD-10-PCS; 2021-10-25)
PROC: 3E0DX3Z Introduction of Anti-inflammatory into Mouth and Pharynx, External Approach (ICD-10-PCS; 2021-10-26)
DX: U07.1 COVID-19 (principal); J12.82 Pneumonia due to coronavirus disease 2019; R42 Dizziness and giddiness; R53.83 Other fatigue; N17.9 Acute kidney failure, unspecified; E87.1 Hypo-osmolality and hyponatremia; E86.0 Dehydration; E87.6 Hypokalemia; I10 Essential (primary) hypertension; E11.40 Type 2 diabetes mellitus with diabetic neuropathy, unspecified; G40.909 Epilepsy, unspecified, not intractable, without status epilepticus; I25.10 Atherosclerotic heart disease of native coronary artery without angina pectoris; G40.309 Generalized idiopathic epilepsy and epileptic syndromes, not intractable, without status epilepticus; Z79.899 Other long term (current) drug therapy; K52.9 Noninfective gastroenteritis and colitis, unspecified; E83.42 Hypomagnesemia; E78.00 Pure hypercholesterolemia, unspecified; E11.42 Type 2 diabetes mellitus with diabetic polyneuropathy; E66.9 Obesity, unspecified; E11.21 Type 2 diabetes mellitus with diabetic nephropathy; Z87.891 Personal history of nicotine dependence; Z79.82 Long term (current) use of aspirin; Z79.4 Long term (current) use of insulin
CPT/HCPCS: 0240U; 36415; 71045; 71260; 80053; 82248; 82728; 82947; 83605; 83735; 83880; 84100; 84484; 85025; 85379; 85610; 85730; 86140; 93005; A9270-GY; J0696; J1650; J1815-GY; J3480; J7030; J7050; J8540; Q9967

== ENCOUNTER 2022-02-01 13:04 | Emergency (ER) | payer MEDICARE, MEDICAID ==
[2022-02-01 13:20] VITALS: BP 110/81; PULSE 90
[2022-02-01 13:58] LABS: CORONAVIRUS COVID-19 NAA NEGATIVE (NEGATIVE)
[2022-02-01 14:10] LABS: ANION GAP 17.2 mEq/L (7-13); CHLORIDE,CL 104 mmol/L (98-107); SODIUM,NA 134 mmol/L (136-145)
== END 2022-02-01 15:27 | disposition home or self-care (01) ==
LOC: DL.ED 13:04
DX: R11.2 Nausea with vomiting, unspecified (principal); T46.6X5A Adverse effect of antihyperlipidemic and antiarteriosclerotic drugs, initial encounter; I25.119 Atherosclerotic heart disease of native coronary artery with unspecified angina pectoris; E78.00 Pure hypercholesterolemia, unspecified; I10 Essential (primary) hypertension; E11.21 Type 2 diabetes mellitus with diabetic nephropathy; E66.9 Obesity, unspecified; Z68.41 Body mass index [BMI] 40.0-44.9, adult; Z79.82 Long term (current) use of aspirin; Z79.899 Other long term (current) drug therapy; Z79.4 Long term (current) use of insulin; Z20.822 Contact with and (suspected) exposure to COVID-19; Z91.19 Patient's noncompliance with other medical treatment and regimen
CPT/HCPCS: 0240U; 36415; 80053; 80307; 83605; 83735; 85025; 87040; 99284

== ENCOUNTER 2022-07-14 20:04 | Inpatient (IN) | payer MEDICARE, MEDICAID ==
[2022-07-14 20:23] LABS: CORONAVIRUS COVID-19 NAA NEGATIVE (NEGATIVE)
[2022-07-14 20:25] LABS: ANION GAP 16.7 mEq/L (7-13); CHLORIDE,CL 100 mmol/L (98-107); SODIUM,NA 130 mmol/L (136-145)
[2022-07-14] MEDS ORDERED: 50% Dextrose in Water 50 ML Syringe IVPUSH PRN ×2 (20:26→21:37)
[2022-07-14] MEDS ORDERED: Insulin Regular, Human 100 Units/ML 3 ML Vial IV ONE (20:26)
[2022-07-14] MEDS ORDERED: Glucagon,Human Recombinant 1 MG Vial IM PRN ×2 (20:26→21:37)
[2022-07-14 20:31] LABS: ESTIMATED GFR 38 mL/min (>=60)
[2022-07-14] MEDS: Iopamidol 755 Mg/ML 100 ML Bottle IVPUSH ONE (21:30)
[2022-07-14] MEDS ORDERED: levETIRAcetam 500 MG Tab PO ONE (21:39)
[2022-07-14 21:47] LABS: ALLEN TEST PERFORMED; BASE EXCESS ARTERIAL -12 mmol/L ((-2)-(+3)); O2 DELIVERY DEVICE ROOM AIR; O2 SATURATION ARTERIAL 96 % (95-100); PCO2 ARTERIAL 29 mmHg (35-45); PO2 ARTERIAL 78 mmHg (70-100)
[2022-07-14] MEDS ORDERED: Insulin Regular in 0.9 % NACL 100 ML ONE (21:57)
[2022-07-14] MEDS ORDERED: Magnesium Sulfate/Water 2 GM in Premix Bag 1 BAG IV ONE (22:03)
[2022-07-14] MEDS: Sodium Chloride 0.9% 1,000 ML IV ONE ×2 (22:04→22:53)
[2022-07-14] MEDS ORDERED: Sodium Chloride 0.9% 1,000 ML IV ONE (22:48)
[2022-07-14] MEDS ORDERED: Norepinephrine 4 MG in Dextrose 5% in Water 246 ML IV SCH ×2 (23:30)
[2022-07-14] MEDS ORDERED: Norepinephrine 4 MG/4 ML SDV ONE (23:33)
[2022-07-15] MEDS ORDERED: HYDROmorphone 1 MG/ML Syringe ONE (00:06)
[2022-07-15] MEDS ORDERED: HYDROmorphone 1 MG/ML Syringe IVPUSH ONE (00:07)
[2022-07-15] MEDS ORDERED: LORazepam 2 MG/ML SDV ONE (00:07)
[2022-07-15] MEDS ORDERED: LORazepam 2 MG/ML SDV IVPUSH ONE (00:08)
[2022-07-15] MEDS ORDERED: Albumin Human 50 GM in Premix Bag 1 BAG IV ONE (00:47)
[2022-07-15] MEDS ORDERED: Sodium Bicarbonate 8.4% 50 MEQ/50 ML Syringe IVPUSH ONE ×2 (00:48→02:00)
[2022-07-15] MEDS ORDERED: HYDROmorphone 0.5 MG/0.5 ML Syringe IVPUSH PRN (01:01)
[2022-07-15] MEDS ORDERED: Zolpidem 5 MG Tab PO PRN (01:01)
[2022-07-15] MEDS ORDERED: Polyethylene Glycol 3350 Powder 17 GM Packet PO PRN (01:01)
[2022-07-15] MEDS ORDERED: Albuterol/Ipratropium 3.0-0.5 MG/3 ML Neb Soln NEB PRN (01:01)
[2022-07-15] MEDS ORDERED: Magnesium Hydroxide 400 MG/5 ML Susp 30 ML Cup PO PRN (01:01)
[2022-07-15] MEDS ORDERED: Ondansetron 4 MG/2 ML SDV IVPUSH PRN (01:01)
[2022-07-15] MEDS ORDERED: Acetaminophen 325 MG Tab PO PRN (01:01)
[2022-07-15] MEDS ORDERED: Glucagon,Human Recombinant 1 MG Vial IM PRN ×2 (01:07→09:13)
[2022-07-15] MEDS ORDERED: 50% Dextrose in Water 50 ML Syringe IVPUSH PRN ×2 (01:07→09:13)
[2022-07-15] MEDS ORDERED: Insulin Lispro 100 Units/ML 3 ML Vial SUBCUT SCH (01:15)
[2022-07-15] MEDS ORDERED: guaiFENesin/Dextromethorphan 100-10 MG/5 ML Soln 5 ML Cup PO PRN (01:33)
[2022-07-15] MEDS ORDERED: Heparin Sodium 5,000 Units/ML Vial IVPUSH ONE (02:00)
[2022-07-15] MEDS ORDERED: Heparin Sodium/0.45% NaCl 25,000 UNITS/500 ML BAG IV SCH (02:00)
[2022-07-15 02:02] LABS: ANION GAP 16.4 mEq/L (7-13)
[2022-07-15] MEDS: Hydrocortisone Sodium Succinate 100 MG/2 ML SDV IVPUSH SCH ×3 (02:02→16:42)
[2022-07-15] MEDS: Piperacillin/Tazobactam 3.375 GM in Sodium Chloride 0.9% 100 ML IV SCH ×4 (02:09→17:46)
[2022-07-15] MEDS: Lactated Ringers 1,000 ML IV SCH ×5 (02:29→23:21)
[2022-07-15] MEDS ORDERED: Piperacillin/Tazobactam 3.375 GM in Sodium Chloride 0.9% 100 ML IV SCH (06:00)
[2022-07-15] MEDS: Iopamidol 755 Mg/ML 100 ML Bottle IVPUSH ONE (07:30)
[2022-07-15] MEDS: Acetaminophen/HYDROcodone 325-5 MG Tab PO PRN (08:44)
[2022-07-15] MEDS: Aspirin 81 MG Tab.EC PO SCH (08:44)
[2022-07-15 08:49] LABS: ANION GAP 12.5 mEq/L (7-13)
[2022-07-15] MEDS ORDERED: glipiZIDE 5 MG Tab.ER PO SCH (09:00)
[2022-07-15] MEDS ORDERED: Non-Formulary Medication 1 Each (Alogliptin Benzoate [Alogliptin] 25 MG Tablet) PO SCH (09:00)
[2022-07-15] MEDS: Insulin Lispro 100 Units/ML 3 ML Vial SUBCUT SCH ×2 (12:15→16:42)
[2022-07-15] MEDS ORDERED: Melatonin 3 MG Tab PO PRN (20:08)
[2022-07-15] MEDS ORDERED: Insulin Lispro 100 Units/ML 3 ML Vial SUBCUT ONE (21:49)
[2022-07-15] MEDS: levETIRAcetam 500 MG Tab PO SCH (22:01)
[2022-07-15] MEDS: Gabapentin 300 MG Cap PO SCH (22:01)
[2022-07-15] MEDS: Insulin Glarg,Human.Rec.Analog 100 Unit/ML SUBCUT SCH (22:01)
[2022-07-16] MEDS: Piperacillin/Tazobactam 3.375 GM in Sodium Chloride 0.9% 100 ML IV SCH ×4 (00:02→17:49)
[2022-07-16] MEDS: Lactated Ringers 1,000 ML IV SCH (07:27)
[2022-07-16] MEDS: glipiZIDE 5 MG Tab PO SCH ×2 (08:13→18:23)
[2022-07-16] MEDS: Rosuvastatin 10 MG Tab PO SCH (08:14)
[2022-07-16] MEDS: Montelukast 10 MG Tab PO SCH (08:15)
[2022-07-16] MEDS: Aspirin 81 MG Tab.EC PO SCH (08:16)
[2022-07-16] MEDS: Gabapentin 300 MG Cap PO SCH ×2 (08:16→20:48)
[2022-07-16] MEDS: amLODIPine 5 MG Tab PO SCH (08:17)
[2022-07-16] MEDS: levETIRAcetam 500 MG Tab PO SCH ×2 (08:17→20:48)
[2022-07-16] MEDS: Insulin Lispro 100 Units/ML 3 ML Vial SUBCUT SCH ×3 (08:18→17:04)
[2022-07-16] MEDS: Insulin Glarg,Human.Rec.Analog 100 Unit/ML SUBCUT SCH ×2 (08:20→20:51)
[2022-07-16] MEDS: Acetaminophen/HYDROcodone 325-5 MG Tab PO PRN (15:18)
[2022-07-17] MEDS: Piperacillin/Tazobactam 3.375 GM in Sodium Chloride 0.9% 100 ML IV SCH ×2 (00:46→05:28)
[2022-07-17 07:11] LABS: ANION GAP 13.1 mEq/L (7-13)
[2022-07-17 08:23] VITALS: BP 130/83; PULSE 90
[2022-07-17] MEDS: amLODIPine 5 MG Tab PO SCH (08:45)
[2022-07-17] MEDS: Gabapentin 300 MG Cap PO SCH (08:46)
[2022-07-17] MEDS: levETIRAcetam 500 MG Tab PO SCH (08:46)
[2022-07-17] MEDS: glipiZIDE 5 MG Tab PO SCH (08:47)
[2022-07-17] MEDS: Montelukast 10 MG Tab PO SCH (08:47)
[2022-07-17] MEDS: Aspirin 81 MG Tab.EC PO SCH (08:47)
[2022-07-17] MEDS: Rosuvastatin 10 MG Tab PO SCH (08:48)
[2022-07-17] MEDS: Insulin Lispro 100 Units/ML 3 ML Vial SUBCUT SCH (08:50)
[2022-07-17] MEDS: Insulin Glarg,Human.Rec.Analog 100 Unit/ML SUBCUT SCH (08:53)
[2022-07-17] MEDS ORDERED: glipiZIDE 5 MG Tab.ER PO SCH (09:00)
== END 2022-07-17 11:30 | disposition home or self-care (01) | DRG 682 ==
LOC: DL.ED 20:04 → DL.MS 07-15 00:56
PROVIDERS: ADMIT Internal Medicine; ATTEND Internal Medicine
PROC: 02HV33Z Insertion of Infusion Device into Superior Vena Cava, Percutaneous Approach (ICD-10-PCS; principal; 2022-07-14)
PROC: 3E03329 Introduction of Other Anti-infective into Peripheral Vein, Percutaneous Approach (ICD-10-PCS; 2022-07-14)
PROC: 3E033XZ Introduction of Vasopressor into Peripheral Vein, Percutaneous Approach (ICD-10-PCS; 2022-07-16)
DX: N17.9 Acute kidney failure, unspecified (principal); G92.8 Other toxic encephalopathy; R57.8 Other shock; E11.10 Type 2 diabetes mellitus with ketoacidosis without coma; E87.1 Hypo-osmolality and hyponatremia; E78.00 Pure hypercholesterolemia, unspecified; E87.20 Acidosis, unspecified; R65.10 Systemic inflammatory response syndrome (SIRS) of non-infectious origin without acute organ dysfunction; R78.81 Bacteremia; I10 Essential (primary) hypertension; E78.5 Hyperlipidemia, unspecified; I25.10 Atherosclerotic heart disease of native coronary artery without angina pectoris; E11.21 Type 2 diabetes mellitus with diabetic nephropathy; E11.40 Type 2 diabetes mellitus with diabetic neuropathy, unspecified; E83.42 Hypomagnesemia; G40.909 Epilepsy, unspecified, not intractable, without status epilepticus; Z20.822 Contact with and (suspected) exposure to COVID-19; E66.9 Obesity, unspecified; N28.1 Cyst of kidney, acquired; K76.0 Fatty (change of) liver, not elsewhere classified; K43.9 Ventral hernia without obstruction or gangrene; E11.65 Type 2 diabetes mellitus with hyperglycemia; Z79.82 Long term (current) use of aspirin; Z68.39 Body mass index [BMI] 39.0-39.9, adult; Z79.4 Long term (current) use of insulin; Z87.891 Personal history of nicotine dependence; Z79.1 Long term (current) use of non-steroidal anti-inflammatories (NSAID); Z79.52 Long term (current) use of systemic steroids; Z90.49 Acquired absence of other specified parts of digestive tract; Z95.5 Presence of coronary angioplasty implant and graft; Z79.899 Other long term (current) drug therapy
CPT/HCPCS: 0240U; 36415; 36600; 51701; 51702; 71045; 71260; 74177; 76770; 80048; 80053; 80307; 81001; 82009; 82150; 82533; 82803; 82947; 83605; 83690; 83735; 83880; 84484; 85025; 85379; 85610; 85730; 86140; 87040; 87070; 87077; 87186; 87205; 93005; 93010; 93970; 97161; 99238; 96365; 96366; 96367; 96375; 99285-25; A9270-GY; J1170; J1644; J1720; J1815-GY; J2060; J2543; J3475; J7030; J7060; J7120; P9047; Q9967

== ENCOUNTER 2022-10-10 16:22 | Emergency (ER) | payer MEDICARE, MEDICAID ==
[2022-10-10 16:56] LABS: ANION GAP 16.6 mEq/L (7-13); CHLORIDE,CL 109 mmol/L (98-107); SODIUM,NA 142 mmol/L (136-145)
[2022-10-10 16:57] LABS: ESTIMATED GFR 67 mL/min (>=60)
[2022-10-10 17:26] LABS: AMPHETAMINES,URINE NEGATIVE (NEGATIVE); BARBITURATES,URINE NEGATIVE (NEGATIVE); BENZODIAZEPINE,URINE NEGATIVE (NEGATIVE); MDMA (ECSTASY), URINE NEGATIVE (NEGATIVE); METHADONE,URINE NEGATIVE (NEGATIVE); METHAMPHETAMINES,URINE NEGATIVE (NEGATIVE); OPIATES,URINE NEGATIVE (NEGATIVE); OXYCODONE,URINE NEGATIVE (NEGATIVE); PHENCYCLIDINE,URINE NEGATIVE (NEGATIVE); TCA,URINE NEGATIVE (NEGATIVE)
[2022-10-10] MEDS ORDERED: Iopamidol 612 MG/ML 100 ML Bottle IVPUSH ONE (17:40)
[2022-10-10] MEDS ORDERED: Iopamidol 612 MG/ML 50 ML SDV IVPUSH ONE (17:51)
[2022-10-10 18:18] LABS: HEMOGLOBIN A1C 9.3 % (<5.7)
[2022-10-10 18:22] VITALS: BP 112/85; PULSE 101
[2022-10-10 18:23] LABS: CORONAVIRUS COVID-19 NAA NEGATIVE (NEGATIVE); RESPIRATORY SYNCYTIAL VIR NAA NEGATIVE (NEGATIVE)
== END 2022-10-10 20:52 | disposition home or self-care (01) ==
LOC: DL.ED 16:22
DX: K43.9 Ventral hernia without obstruction or gangrene (principal); I25.119 Atherosclerotic heart disease of native coronary artery with unspecified angina pectoris; I10 Essential (primary) hypertension; E78.00 Pure hypercholesterolemia, unspecified; E11.21 Type 2 diabetes mellitus with diabetic nephropathy; R00.0 Tachycardia, unspecified; E66.9 Obesity, unspecified; Z68.41 Body mass index [BMI] 40.0-44.9, adult; Z91.199 Patient's noncompliance with other medical treatment and regimen due to unspecified reason; Z79.82 Long term (current) use of aspirin; Z79.4 Long term (current) use of insulin; Z79.899 Other long term (current) drug therapy; Z20.822 Contact with and (suspected) exposure to COVID-19
CPT/HCPCS: 0241U; 36415; 74176; 74177; 80053; 80305; 80307; 81001; 82150; 82947; 83036; 83605; 83690; 83735; 84443; 84484; 85025; 86140; 93005; 99285; Q9967

== ENCOUNTER 2022-11-02 13:39 | Emergency (ER) | payer MEDICARE, MEDICAID ==
[2022-11-02] MEDS ORDERED: levETIRAcetam in NaCl (iso-os) 1,500 MG in Premix Bag 1 BAG IV ONE ×2 (13:40)
[2022-11-02] MEDS: Sodium Chloride 0.9% 10 ML Syringe FLUSH PRN ×2 (13:43→14:50)
[2022-11-02 13:50] VITALS: BP 113/51; PULSE 93
[2022-11-02 14:11] LABS: ANION GAP 16.8 mEq/L (7-13)
[2022-11-02] MEDS ORDERED: Iopamidol 755 Mg/ML 100 ML Bottle IVPUSH ONE (14:31)
[2022-11-02] MEDS ORDERED: Sodium Chloride 0.9% 1,000 ML IV ONE (14:34)
== END 2022-11-02 15:55 | disposition home or self-care (01) ==
LOC: DL.ED 13:39
DX: G40.909 Epilepsy, unspecified, not intractable, without status epilepticus (principal); I25.119 Atherosclerotic heart disease of native coronary artery with unspecified angina pectoris; E78.00 Pure hypercholesterolemia, unspecified; I10 Essential (primary) hypertension; E11.9 Type 2 diabetes mellitus without complications; E66.9 Obesity, unspecified; Z68.41 Body mass index [BMI] 40.0-44.9, adult; Z79.82 Long term (current) use of aspirin; Z79.899 Other long term (current) drug therapy; Z79.4 Long term (current) use of insulin
CPT/HCPCS: 36415; 71045; 71260; 80053; 82150; 83690; 83880; 84484; 85025; 85379; 85610; 85730; 93005; 93010; 96361; 96365; 99284; 99285-25; J1953; J3490; J7030; Q9967

== ENCOUNTER 2023-01-11 16:05 | Emergency (ER) | payer MEDICARE, MEDICAID ==
[2023-01-11] MEDS ORDERED: Amoxicillin/Clavulanate K 875-125 MG Tab PO ONE (16:06)
[2023-01-11 16:17] VITALS: BP 157/90; PULSE 72
[2023-01-11] MEDS ORDERED: Amoxicillin/Clavulanate K 875-125 MG Tab ONE (17:20)
== END 2023-01-11 17:27 | disposition home or self-care (01) ==
LOC: DL.ED 16:05
DX: J01.10 Acute frontal sinusitis, unspecified (principal); J06.9 Acute upper respiratory infection, unspecified; I25.119 Atherosclerotic heart disease of native coronary artery with unspecified angina pectoris; E78.00 Pure hypercholesterolemia, unspecified; I10 Essential (primary) hypertension; E11.21 Type 2 diabetes mellitus with diabetic nephropathy; E66.9 Obesity, unspecified; Z68.41 Body mass index [BMI] 40.0-44.9, adult; Z79.82 Long term (current) use of aspirin; Z79.84 Long term (current) use of oral hypoglycemic drugs
CPT/HCPCS: 36415; 71045; 80053; 82947; 85025; 99284; A9270-GY

== ENCOUNTER 2023-01-15 18:06 | Emergency (ER) | payer MEDICARE, MEDICAID ==
[2023-01-15 18:16] VITALS: BP 169/76; PULSE 76
== END 2023-01-15 18:27 | disposition left against medical advice (07) ==
LOC: DL.ED 18:06
DX: Z76.0 Encounter for issue of repeat prescription (principal); Z53.21 Procedure and treatment not carried out due to patient leaving prior to being seen by health care provider

== ENCOUNTER 2023-01-29 21:20 | Emergency (ER) | payer MEDICARE, MEDICAID ==
[2023-01-29] MEDS ORDERED: Acetaminophen 500 MG Tab PO ONE (21:49)
[2023-01-29] MEDS ORDERED: Sodium Chloride 0.9% 1,000 ML IV ONE (21:50)
[2023-01-29 22:21] VITALS: BP 142/81; PULSE 68
[2023-01-29 22:25] LABS: BASOPHILS PERCENT AUTO 0.2 % (0.0-1.0); HEMATOCRIT 37.9 % (40.0-54.0); HEMOGLOBIN 12.8 g/dL (14.0-18.0); LYMPHOCYTES PERCENT AUTO 32.5 % (20.5-50.1); MEAN CORPUSCULAR HEMOGLOBIN 29.6 pg (27.0-34.0); MEAN CORPUSCULAR HGB CONC 33.8 g/dL (33.0-35.0); MEAN CORPUSCULAR VOLUME 87.5 fL (80-100); MONOCYTES PERCENT AUTO 6.1 % (2-8); NEUTROPHILS PERCENT AUTO 60.2 % (42.2-75.2); PLATELET COUNT,PLT 190 10^3/uL (150-450); RED BLOOD CELL COUNT 4.33 10^6/uL (4.6-6.2)
[2023-01-29 22:44] LABS: ALANINE AMINOTRANSFERASE,ALT 23 U/L (16-63); ALKALINE PHOSPHATASE 75 U/L (46-116); ANION GAP 10.1 mEq/L (7-13); ASPARTATE AMNIOTRANSFERASE,AST 11 U/L (15-37); BILIRUBIN TOTAL 0.4 mg/dL (0.2-1.0); BLOOD UREA NITROGEN,BUN 22 mg/dL (7-18); BUN/CREATININE RATIO 22.4 (No establ ref range); CALCIUM 8.7 mg/dL (8.5-10.1); CARBON DIOXIDE,CO2 28 mmol/L (21-32); CHLORIDE,CL 104 mmol/L (98-107); CREATININE 0.98 mg/dL (0.70-1.30); GLUCOSE RANDOM 139 mg/dL (70-99); MAGNESIUM 1.7 mg/dL (1.8-2.4); POTASSIUM,K 4.1 mmol/L (3.5-5.1); PROTEIN TOTAL,TP 7.3 g/dL (6.4-8.2); SODIUM,NA 138 mmol/L (136-145)
[2023-01-29 22:47] LABS: C-REACTIVE PROTEIN < 0.2 mg/dL (0.0-0.9); ESTIMATED GFR 85 mL/min (>=60); ETHANOL BLOOD MEDICAL < 3 mg/dL (0)
[2023-01-29] MEDS ORDERED: Magnesium Sulfate/Water 2 GM in Premix Bag 1 BAG IV ONE (22:51)
[2023-01-29 23:39] LABS: APPEARANCE,URINE CLEAR (CLEAR); BILIRUBIN,URINE NEGATIVE (NEGATIVE); COLOR,URINE YELLOW (YELLOW); GLUCOSE,URINE NEGATIVE (NEGATIVE); KETONES,URINE NEGATIVE (NEGATIVE); LEUKOCYTE ESTERASE,URINE NEGATIVE (NEGATIVE); NITRITE,URINE NEGATIVE (NEGATIVE); OCCULT BLOOD,URINE TRACE-INTACT (NEGATIVE); PH,URINE 5.5 (5.0-9.0); PROTEIN,URINE >=300 (NEGATIVE)
[2023-01-29] MEDS ORDERED: Take Home: Ondansetron 4 MG Tab.DIS, 5 Tab Pack PO ONE (23:45)
[2023-01-29 23:47] LABS: AMPHETAMINES,URINE NEGATIVE (NEGATIVE); BARBITURATES,URINE NEGATIVE (NEGATIVE); BENZODIAZEPINE,URINE NEGATIVE (NEGATIVE); MDMA (ECSTASY), URINE NEGATIVE (NEGATIVE); METHADONE,URINE NEGATIVE (NEGATIVE); METHAMPHETAMINES,URINE NEGATIVE (NEGATIVE); OPIATES,URINE NEGATIVE (NEGATIVE); OXYCODONE,URINE NEGATIVE (NEGATIVE); PHENCYCLIDINE,URINE NEGATIVE (NEGATIVE); TCA,URINE NEGATIVE (NEGATIVE)
[2023-01-29 23:51] LABS: BACTERIA,URINE FEW /HPF (0-FEW/HPF); EPITHELIAL CELLS,URINE OCCASIONAL /HPF (NOT SEEN); RBC,URINE 0-5 /HPF (0-5); WBC,URINE 0-5 /HPF (0-5/HPF)
== END 2023-01-30 | disposition home or self-care (01) ==
LOC: DL.ED 21:20
DX: E86.0 Dehydration (principal); E83.42 Hypomagnesemia; H73.893 Other specified disorders of tympanic membrane, bilateral; I25.119 Atherosclerotic heart disease of native coronary artery with unspecified angina pectoris; I10 Essential (primary) hypertension; E78.00 Pure hypercholesterolemia, unspecified; E11.21 Type 2 diabetes mellitus with diabetic nephropathy; E11.40 Type 2 diabetes mellitus with diabetic neuropathy, unspecified; E66.9 Obesity, unspecified; Z79.82 Long term (current) use of aspirin; Z79.4 Long term (current) use of insulin; Z79.899 Other long term (current) drug therapy
CPT/HCPCS: 36415; 80053; 80305; 80307; 81001; 83735; 85025; 86140; 96361; 96365; 99284; A9270; J3475; J7030; Q0162

== ENCOUNTER 2023-02-08 15:40 | Emergency (ER) | payer MEDICARE, MEDICAID ==
[2023-02-08 16:29] LABS: APPEARANCE,URINE CLEAR (CLEAR); BILIRUBIN,URINE NEGATIVE (NEGATIVE); COLOR,URINE YELLOW (YELLOW); GLUCOSE,URINE NEGATIVE (NEGATIVE); KETONES,URINE NEGATIVE (NEGATIVE); LEUKOCYTE ESTERASE,URINE NEGATIVE (NEGATIVE); NITRITE,URINE NEGATIVE (NEGATIVE); OCCULT BLOOD,URINE TRACE-INTACT (NEGATIVE); PH,URINE 5.5 (5.0-9.0); PROTEIN,URINE 100 (NEGATIVE); UROBILINOGEN,URINE 0.2 mg/dL (0.2-1.0)
[2023-02-08 16:49] LABS: HEMATOCRIT 45.1 % (40.0-54.0); MEAN CORPUSCULAR HEMOGLOBIN 29.3 pg (27.0-34.0); MEAN CORPUSCULAR HGB CONC 33.3 g/dL (33.0-35.0); MEAN CORPUSCULAR VOLUME 88.1 fL (80-100); PLATELET COUNT,PLT 159 10^3/uL (150-450); RED BLOOD CELL COUNT 5.12 10^6/uL (4.6-6.2); WHITE BLOOD CELL COUNT,WBC 2.9 10^3/uL (5.0-10.0)
[2023-02-08 16:56] LABS: AMORPHOUS SEDIMENT,URINE FEW /HPF (NOT SEEN); BACTERIA,URINE RARE /HPF (0-FEW/HPF); EPITHELIAL CELLS,URINE MODERATE /HPF (NOT SEEN); MUCUS,URINE FEW /LPF (NOT SEEN); RBC,URINE 0-5 /HPF (0-5); WBC,URINE 0-5 /HPF (0-5/HPF)
[2023-02-08 17:07] LABS: INR 0.9 (0.9-1.2); PROTHROMBIN TIME 9.6 SEC (9.0-12.0); PTT,PARTIAL THROMBOPLSTIN TIME 22.5 SEC (22.0-34.0)
[2023-02-08 17:13] LABS: A/G RATIO 0.9; ALANINE AMINOTRANSFERASE,ALT 25 U/L (16-63); ALBUMIN 3.5 g/dL (3.4-5.0); ALKALINE PHOSPHATASE 95 U/L (46-116); AMYLASE 37 U/L (25-115); ANION GAP 16.8 mEq/L (7-13); ASPARTATE AMNIOTRANSFERASE,AST 22 U/L (15-37); BILIRUBIN TOTAL 0.3 mg/dL (0.2-1.0); BLOOD UREA NITROGEN,BUN 28 mg/dL (7-18); BUN/CREATININE RATIO 24.3 (No establ ref range); CALCIUM 8.7 mg/dL (8.5-10.1); CARBON DIOXIDE,CO2 23 mmol/L (21-32); CHLORIDE,CL 105 mmol/L (98-107); CREATININE 1.15 mg/dL (0.70-1.30); GLUCOSE RANDOM 165 mg/dL (70-99); LIPASE 57 U/L (73-393); POTASSIUM,K 3.8 mmol/L (3.5-5.1); PROTEIN TOTAL,TP 7.3 g/dL (6.4-8.2); SODIUM,NA 141 mmol/L (136-145)
[2023-02-08 17:14] LABS: ESTIMATED GFR 70 mL/min (>=60)
[2023-02-08 17:15] LABS: C-REACTIVE PROTEIN < 0.2 mg/dL (0.0-0.9); LACTIC ACID 2.4 mmol/L (0.4-2.0)
[2023-02-08 17:35] LABS: BAND PERCENT MAN 41 %; EOSINOPHILS PERCENT MAN 1 % (1-3); LYMPHOCYTES PERCENT MAN 12 % (20-50); MONOCYTES PERCENT MAN 2 % (2-8); SEG NEUTROPHILS PERCENT MAN 44 % (42-75)
[2023-02-08 17:36] LABS: NRBC MANUAL 1 /100WBC
[2023-02-08] MEDS ORDERED: Sodium Chloride 0.9% 1,000 ML IV ONE (18:28)
[2023-02-08] MEDS ORDERED: Iopamidol 612 MG/ML 100 ML Bottle IVPUSH ONE (18:30)
[2023-02-08 21:31] VITALS: BP 125/72; PULSE 97
== END 2023-02-08 20:51 | disposition home or self-care (01) ==
LOC: DL.ED 15:40
DX: A08.4 Viral intestinal infection, unspecified (principal); I25.10 Atherosclerotic heart disease of native coronary artery without angina pectoris; E78.00 Pure hypercholesterolemia, unspecified; I10 Essential (primary) hypertension; E11.21 Type 2 diabetes mellitus with diabetic nephropathy; F17.200 Nicotine dependence, unspecified, uncomplicated; E66.9 Obesity, unspecified; Z68.38 Body mass index [BMI] 38.0-38.9, adult; Z79.4 Long term (current) use of insulin; Z79.84 Long term (current) use of oral hypoglycemic drugs; Z79.899 Other long term (current) drug therapy; Z79.82 Long term (current) use of aspirin
CPT/HCPCS: 36415; 71045; 74177; 80053; 81001; 82150; 83605; 83690; 83880; 84145; 84484; 85025; 85610; 85730; 86140; 93005; 93010; 96360; 99284; 99285; C1758; J7030; Q9967

== ENCOUNTER 2023-02-19 02:04 | Emergency (ER) | payer MEDICARE, MEDICAID | END 2023-02-19 03:03 | disposition left against medical advice (07) | LOC: DL.ED 02:04 | DX: Z53.21 Procedure and treatment not carried out due to patient leaving prior to being seen by health care provider (principal) ==

== ENCOUNTER 2023-02-19 16:15 | Emergency (ER) | payer MEDICARE, MEDICAID ==
[2023-02-19] MEDS ORDERED: Sodium Chloride 0.9% 10 ML Syringe FLUSH PRN (16:16)
[2023-02-19] MEDS ORDERED: Heparin Sodium 5,000 Units/ML Vial IVPUSH ONE (16:19)
[2023-02-19] MEDS ORDERED: Clopidogrel 75 MG Tab PO ONE ×2 (16:21→16:32)
[2023-02-19 16:24] VITALS: BP 147/123; PULSE 87
[2023-02-19] MEDS ORDERED: Ondansetron 4 MG/2 ML SDV IVPUSH ONE (16:28)
[2023-02-19] MEDS ORDERED: Nitroglycerin/D5W 25 MG/250 ML BOTTLE IV SCH (16:30)
[2023-02-19] MEDS ORDERED: Heparin Sodium/0.45% NaCl 25,000 UNITS/500 ML BAG IV SCH (16:30)
[2023-02-19] MEDS ORDERED: Clopidogrel 75 MG Tab ONE (16:33)
[2023-02-19 16:35] LABS: BASOPHILS PERCENT AUTO 0.3 % (0.0-1.0); EOSINOPHILS PERCENT AUTO 0.1 % (1.0-3.0); HEMATOCRIT 44.6 % (40.0-54.0); HEMOGLOBIN 14.5 g/dL (14.0-18.0); LYMPHOCYTES PERCENT AUTO 3.1 % (20.5-50.1); MEAN CORPUSCULAR HEMOGLOBIN 28.8 pg (27.0-34.0); MEAN CORPUSCULAR HGB CONC 32.5 g/dL (33.0-35.0); MEAN CORPUSCULAR VOLUME 88.5 fL (80-100); MONOCYTES PERCENT AUTO 0.5 % (2-8); PLATELET COUNT,PLT 159 10^3/uL (150-450); RED BLOOD CELL COUNT 5.04 10^6/uL (4.6-6.2); WHITE BLOOD CELL COUNT,WBC 10.2 10^3/uL (5.0-10.0)
[2023-02-19 16:54] LABS: PROTHROMBIN TIME 9.8 SEC (9.0-12.0); PTT,PARTIAL THROMBOPLSTIN TIME 22.3 SEC (22.0-34.0)
[2023-02-19 16:58] LABS: ALANINE AMINOTRANSFERASE,ALT 33 U/L (16-63); ALBUMIN 3.2 g/dL (3.4-5.0); ALKALINE PHOSPHATASE 111 U/L (46-116); AMYLASE 41 U/L (25-115); ANION GAP 13.6 mEq/L (7-13); ASPARTATE AMNIOTRANSFERASE,AST 28 U/L (15-37); BILIRUBIN TOTAL 0.2 mg/dL (0.2-1.0); BLOOD UREA NITROGEN,BUN 21 mg/dL (7-18); BUN/CREATININE RATIO 16.9 (No establ ref range); CALCIUM 8.7 mg/dL (8.5-10.1); CARBON DIOXIDE,CO2 23 mmol/L (21-32); CHLORIDE,CL 106 mmol/L (98-107); CREATININE 1.24 mg/dL (0.70-1.30); GLUCOSE RANDOM 179 mg/dL (70-99); LIPASE 92 U/L (73-393); MAGNESIUM 1.5 mg/dL (1.8-2.4); POTASSIUM,K 3.6 mmol/L (3.5-5.1); PROTEIN TOTAL,TP 7.1 g/dL (6.4-8.2); SODIUM,NA 139 mmol/L (136-145)
[2023-02-19 17:00] LABS: B-TYPE NATRIURETIC PEPTIDE,BNP 63 pg/ml (0-100)
[2023-02-19 17:05] LABS: A/G RATIO 0.82; ESTIMATED GFR 64 mL/min (>=60)
[2023-02-19 17:06] LABS: C-REACTIVE PROTEIN < 0.2 mg/dL (0.0-0.9); ETHANOL BLOOD MEDICAL < 3 mg/dL (0); LACTIC ACID 4.4 mmol/L (0.4-2.0)
== END 2023-02-19 17:15 ==
LOC: DL.ED 16:15
DX: I21.3 ST elevation (STEMI) myocardial infarction of unspecified site (principal); I10 Essential (primary) hypertension; E78.00 Pure hypercholesterolemia, unspecified; I25.119 Atherosclerotic heart disease of native coronary artery with unspecified angina pectoris; E11.21 Type 2 diabetes mellitus with diabetic nephropathy; E11.40 Type 2 diabetes mellitus with diabetic neuropathy, unspecified; E66.9 Obesity, unspecified; Z79.4 Long term (current) use of insulin; Z79.82 Long term (current) use of aspirin; Z79.899 Other long term (current) drug therapy
CPT/HCPCS: 36415; 71045; 80053; 80307; 82150; 83605; 83690; 83735; 83880; 84145; 84484; 85025; 85610; 85730; 86140; 93005; 93010; 96365; 96368; 96375; 96376; 99285; 99285-25; A9270-GY; C1758; J1644; J2405; J3490

== ENCOUNTER 2023-02-28 12:13 | Emergency (ER) | payer MEDICARE, MEDICAID ==
[~2023-02-28 12:13] MED LIST: Sodium Chloride 0.9% 10 ML Syringe FLUSH PRN
[2023-02-28 12:29] LABS: EOSINOPHILS PERCENT AUTO 2.2 % (1.0-3.0); HEMOGLOBIN 12.6 g/dL (14.0-18.0); MEAN CORPUSCULAR HEMOGLOBIN 29.1 pg (27.0-34.0); MEAN CORPUSCULAR HGB CONC 33.2 g/dL (33.0-35.0); MEAN CORPUSCULAR VOLUME 87.8 fL (80-100); MONOCYTES PERCENT AUTO 7.8 % (2-8); PLATELET COUNT,PLT 228 10^3/uL (150-450); RED BLOOD CELL COUNT 4.33 10^6/uL (4.6-6.2); WHITE BLOOD CELL COUNT,WBC 7.3 10^3/uL (5.0-10.0)
[2023-02-28 12:49] LABS: PROTHROMBIN TIME 9.9 SEC (9.0-12.0); PTT,PARTIAL THROMBOPLSTIN TIME 25.8 SEC (22.0-34.0)
[2023-02-28 12:50] LABS: B-TYPE NATRIURETIC PEPTIDE,BNP 298 pg/ml (0-100)
[2023-02-28 12:55] VITALS: BP 127/87; PULSE 60
[2023-02-28 13:00] LABS: ALANINE AMINOTRANSFERASE,ALT 50 U/L (16-63); ALKALINE PHOSPHATASE 68 U/L (46-116); AMYLASE 37 U/L (25-115); ANION GAP 13.6 mEq/L (7-13); ASPARTATE AMNIOTRANSFERASE,AST 26 U/L (15-37); BILIRUBIN TOTAL 0.5 mg/dL (0.2-1.0); BLOOD UREA NITROGEN,BUN 15 mg/dL (7-18); BUN/CREATININE RATIO 15.3 (No establ ref range); CALCIUM 8.6 mg/dL (8.5-10.1); CARBON DIOXIDE,CO2 23 mmol/L (21-32); CHLORIDE,CL 107 mmol/L (98-107); CREATININE 0.98 mg/dL (0.70-1.30); GLUCOSE RANDOM 116 mg/dL (70-99); LIPASE 45 U/L (73-393); POTASSIUM,K 3.6 mmol/L (3.5-5.1); PROTEIN TOTAL,TP 7.2 g/dL (6.4-8.2); SODIUM,NA 140 mmol/L (136-145)
[2023-02-28 13:01] LABS: A/G RATIO 0.71; ESTIMATED GFR 85 mL/min (>=60)
[2023-02-28 13:02] LABS: ETHANOL BLOOD MEDICAL < 3 mg/dL (0)
[2023-02-28] MEDS ORDERED: Heparin Sodium/0.45% NaCl 25,000 UNITS/500 ML BAG IV SCH (13:15)
[2023-02-28] MEDS ORDERED: Heparin Sodium 5,000 Units/ML Vial IVPUSH ONE (13:16)
== END 2023-02-28 16:07 | disposition home or self-care (01) ==
LOC: DL.ED 12:13
DX: R07.9 Chest pain, unspecified (principal); R77.8 Other specified abnormalities of plasma proteins; I25.10 Atherosclerotic heart disease of native coronary artery without angina pectoris; I25.2 Old myocardial infarction; E78.00 Pure hypercholesterolemia, unspecified; I10 Essential (primary) hypertension; E11.21 Type 2 diabetes mellitus with diabetic nephropathy; E11.40 Type 2 diabetes mellitus with diabetic neuropathy, unspecified; E66.9 Obesity, unspecified; Z68.41 Body mass index [BMI] 40.0-44.9, adult; Z79.4 Long term (current) use of insulin; Z79.899 Other long term (current) drug therapy
CPT/HCPCS: 36415; 71045; 80053; 80307; 82150; 83690; 83880; 84484; 85025; 85610; 85730; 93005; 93010; 96365; 96366; 99284; 99285-25; J1644; J3490

== ENCOUNTER 2023-03-04 19:56 | Emergency (ER) | payer MEDICAID, MEDICARE ==
[2023-03-04] MEDS ORDERED: Sodium Chloride 0.9% 10 ML Syringe FLUSH PRN (20:05)
[2023-03-04 20:17] LABS: BASOPHILS PERCENT AUTO 0.1 % (0.0-1.0); EOSINOPHILS PERCENT AUTO 1.7 % (1.0-3.0); HEMOGLOBIN 12.3 g/dL (14.0-18.0); LYMPHOCYTES PERCENT AUTO 29.2 % (20.5-50.1); MEAN CORPUSCULAR HEMOGLOBIN 29.4 pg (27.0-34.0); MEAN CORPUSCULAR HGB CONC 33.2 g/dL (33.0-35.0); MEAN CORPUSCULAR VOLUME 88.3 fL (80-100); MONOCYTES PERCENT AUTO 6.5 % (2-8); NEUTROPHILS PERCENT AUTO 62.5 % (42.2-75.2); PLATELET COUNT,PLT 230 10^3/uL (150-450); RED BLOOD CELL COUNT 4.19 10^6/uL (4.6-6.2); WHITE BLOOD CELL COUNT,WBC 7.8 10^3/uL (5.0-10.0)
[2023-03-04 20:35] LABS: PROTHROMBIN TIME 9.9 SEC (9.0-12.0); PTT,PARTIAL THROMBOPLSTIN TIME 25.9 SEC (22.0-34.0)
[2023-03-04 20:40] LABS: A/G RATIO 0.77; ANION GAP 12.2 mEq/L (7-13); BILIRUBIN TOTAL 0.3 mg/dL (0.2-1.0); BUN/CREATININE RATIO 17.5 (No establ ref range); CALCIUM 8.4 mg/dL (8.5-10.1); CREATININE 1.03 mg/dL (0.70-1.30); EST CRCL DRUG DOSING (CG) 56.78 mL/min; MAGNESIUM 1.8 mg/dL (1.8-2.4); POTASSIUM,K 4.2 mmol/L (3.5-5.1); PROTEIN TOTAL,TP 6.9 g/dL (6.4-8.2)
[2023-03-04 21:49] VITALS: BP 117/68; PULSE 64
== END 2023-03-04 21:50 | disposition home or self-care (01) ==
LOC: DL.ED 19:56
DX: I20.1 Angina pectoris with documented spasm (principal); R77.8 Other specified abnormalities of plasma proteins; I10 Essential (primary) hypertension; E11.40 Type 2 diabetes mellitus with diabetic neuropathy, unspecified; E66.9 Obesity, unspecified; Z79.82 Long term (current) use of aspirin; Z79.4 Long term (current) use of insulin; Z79.899 Other long term (current) drug therapy; Z91.148 Patient's other noncompliance with medication regimen for other reason; Z68.43 Body mass index [BMI] 50.0-59.9, adult
CPT/HCPCS: 36415; 71045; 80053; 83735; 84484; 85025; 85610; 85730; 93005; 93010; 99284; 99285; J3490

== ENCOUNTER 2023-04-13 16:50 | Emergency (ER) | payer MEDICARE, MEDICAID ==
[2023-04-13] MEDS ORDERED: Sodium Chloride 0.9% 10 ML Syringe FLUSH PRN (16:55)
[2023-04-13 17:11] LABS: BASOPHILS PERCENT AUTO 0.1 % (0.0-1.0); HEMATOCRIT 39.7 % (40.0-54.0); HEMOGLOBIN 12.9 g/dL (14.0-18.0); LYMPHOCYTES PERCENT AUTO 30.4 % (20.5-50.1); MEAN CORPUSCULAR HEMOGLOBIN 28.4 pg (27.0-34.0); MEAN CORPUSCULAR HGB CONC 32.5 g/dL (33.0-35.0); MEAN CORPUSCULAR VOLUME 87.3 fL (80-100); MONOCYTES PERCENT AUTO 6.2 % (2-8); NEUTROPHILS PERCENT AUTO 61.3 % (42.2-75.2); PLATELET COUNT,PLT 208 10^3/uL (150-450); RED BLOOD CELL COUNT 4.55 10^6/uL (4.6-6.2); WHITE BLOOD CELL COUNT,WBC 8.7 10^3/uL (5.0-10.0)
[2023-04-13 17:34] LABS: ALANINE AMINOTRANSFERASE,ALT 43 U/L (16-63); ALBUMIN 3.3 g/dL (3.4-5.0); ALKALINE PHOSPHATASE 71 U/L (46-116); ANION GAP 15.7 mEq/L (7-13); ASPARTATE AMNIOTRANSFERASE,AST 23 U/L (15-37); BILIRUBIN TOTAL 0.3 mg/dL (0.2-1.0); BLOOD UREA NITROGEN,BUN 29 mg/dL (7-18); BUN/CREATININE RATIO 22.1 (No establ ref range); CALCIUM 8.8 mg/dL (8.5-10.1); CARBON DIOXIDE,CO2 23 mmol/L (21-32); CHLORIDE,CL 106 mmol/L (98-107); CREATININE 1.31 mg/dL (0.70-1.30); GLUCOSE RANDOM 96 mg/dL (70-99); POTASSIUM,K 4.7 mmol/L (3.5-5.1); PROTEIN TOTAL,TP 7.8 g/dL (6.4-8.2); SODIUM,NA 140 mmol/L (136-145)
[2023-04-13 17:36] LABS: A/G RATIO 0.73; ESTIMATED GFR 60 mL/min (>=60)
[2023-04-13] MEDS ORDERED: Aspirin 81 MG Tab.Chew PO ONE (17:41)
[2023-04-13] MEDS ORDERED: Heparin Sodium/0.45% NaCl 25,000 UNITS/500 ML BAG IV SCH (17:45)
[2023-04-13] MEDS ORDERED: Heparin Sodium 5,000 Units/ML Vial IVPUSH ONE (17:45)
[2023-04-13 19:13] VITALS: BP 129/85; PULSE 61
== END 2023-04-13 19:00 ==
LOC: DL.ED 16:50
DX: I21.4 Non-ST elevation (NSTEMI) myocardial infarction (principal); I10 Essential (primary) hypertension; E11.21 Type 2 diabetes mellitus with diabetic nephropathy; Z79.82 Long term (current) use of aspirin; Z79.4 Long term (current) use of insulin; Z79.899 Other long term (current) drug therapy
CPT/HCPCS: 36415; 71046; 80053; 84484; 85025; 93005; 93010; 96365; 96376; 99285; A9270; J1644; J3490

== ENCOUNTER 2023-04-22 16:57 | Emergency (ER) | payer MEDICARE, MEDICAID ==
[2023-04-22] MEDS ORDERED: Sodium Chloride 0.9% 10 ML Syringe FLUSH PRN (17:05)
[2023-04-22] MEDS ORDERED: Aspirin 81 MG Tab.Chew PO ONE (17:06)
[2023-04-22] MEDS ORDERED: Nitroglycerin 0.4 MG Tab.SL SL PRN (17:06)
[2023-04-22 17:17] LABS: BASOPHILS PERCENT AUTO 0.1 % (0.0-1.0); EOSINOPHILS PERCENT AUTO 1.3 % (1.0-3.0); HEMATOCRIT 39.3 % (40.0-54.0); HEMOGLOBIN 12.6 g/dL (14.0-18.0); LYMPHOCYTES PERCENT AUTO 31.4 % (20.5-50.1); MEAN CORPUSCULAR HEMOGLOBIN 27.9 pg (27.0-34.0); MEAN CORPUSCULAR HGB CONC 32.1 g/dL (33.0-35.0); MEAN CORPUSCULAR VOLUME 87.1 fL (80-100); MONOCYTES PERCENT AUTO 8.4 % (2-8); NEUTROPHILS PERCENT AUTO 58.8 % (42.2-75.2); PLATELET COUNT,PLT 181 10^3/uL (150-450); RED BLOOD CELL COUNT 4.51 10^6/uL (4.6-6.2); WHITE BLOOD CELL COUNT,WBC 8.7 10^3/uL (5.0-10.0)
[2023-04-22 17:24] VITALS: BP 117/59; PULSE 67
[2023-04-22 17:35] LABS: INR 0.9 (0.9-1.2); PROTHROMBIN TIME 9.7 SEC (9.0-12.0); PTT,PARTIAL THROMBOPLSTIN TIME 25.2 SEC (22.0-34.0)
[2023-04-22 17:44] LABS: ALBUMIN 3.3 g/dL (3.4-5.0); ANION GAP 15.5 mEq/L (7-13); BILIRUBIN TOTAL 0.5 mg/dL (0.2-1.0); BUN/CREATININE RATIO 23.6 (No establ ref range); CALCIUM 9.1 mg/dL (8.5-10.1); CREATININE 1.23 mg/dL (0.70-1.30); EST CRCL DRUG DOSING (CG) 64.84 mL/min; POTASSIUM,K 4.5 mmol/L (3.5-5.1); PROTEIN TOTAL,TP 7.7 g/dL (6.4-8.2)
[2023-04-22 17:57] LABS: A/G RATIO 0.75
== END 2023-04-22 21:17 | disposition home or self-care (01) ==
LOC: DL.ED 16:57
DX: R07.9 Chest pain, unspecified (principal); R06.02 Shortness of breath; R11.0 Nausea; I10 Essential (primary) hypertension; I25.2 Old myocardial infarction; E11.21 Type 2 diabetes mellitus with diabetic nephropathy; Z79.82 Long term (current) use of aspirin; Z79.899 Other long term (current) drug therapy; Z79.4 Long term (current) use of insulin
CPT/HCPCS: 36415; 71045; 80053; 83690; 83880; 84484; 85025; 85610; 85730; 93005; 99285; A9270-GY

== ENCOUNTER 2023-05-28 19:04 | Emergency (ER) | payer MEDICARE, MEDICAID ==
[2023-05-28] MEDS ORDERED: Sodium Chloride 0.9% 10 ML Syringe FLUSH PRN (19:48)
[2023-05-28 19:53] LABS: EOSINOPHILS PERCENT AUTO 1.6 % (1.0-3.0); HEMATOCRIT 38.5 % (40.0-54.0); HEMOGLOBIN 12.9 g/dL (14.0-18.0); LYMPHOCYTES PERCENT AUTO 39.3 % (20.5-50.1); MEAN CORPUSCULAR HGB CONC 33.5 g/dL (33.0-35.0); MEAN CORPUSCULAR VOLUME 86.5 fL (80-100); MONOCYTES PERCENT AUTO 7.1 % (2-8); PLATELET COUNT,PLT 225 10^3/uL (150-450); RED BLOOD CELL COUNT 4.45 10^6/uL (4.6-6.2); WHITE BLOOD CELL COUNT,WBC 8.6 10^3/uL (5.0-10.0)
[2023-05-28 20:13] LABS: ALBUMIN 3.3 g/dL (3.4-5.0); ANION GAP 15.1 mEq/L (7-13); BILIRUBIN TOTAL 0.5 mg/dL (0.2-1.0); BUN/CREATININE RATIO 19.4 (No establ ref range); CALCIUM 8.9 mg/dL (8.5-10.1); CREATININE 1.7 mg/dL (0.70-1.30); EST CRCL DRUG DOSING (CG) 48.31 mL/min; POTASSIUM,K 4.1 mmol/L (3.5-5.1); PROTEIN TOTAL,TP 8.1 g/dL (6.4-8.2)
[2023-05-28 20:15] LABS: B-TYPE NATRIURETIC PEPTIDE,BNP 55 pg/ml (0-100)
[2023-05-28 20:16] LABS: A/G RATIO 0.69; LACTIC ACID 0.8 mmol/L (0.4-2.0)
[2023-05-28] MEDS ORDERED: Nitroglycerin 0.4 MG Tab.SL SL ONE (20:23)
[2023-05-28] MEDS ORDERED: Aspirin 325 MG Tab PO ONE (20:25)
[2023-05-28] MEDS ORDERED: Morphine 2 MG/ML SYRINGE IVPUSH ONE (20:26)
[2023-05-28] MEDS ORDERED: Dexamethasone 4 MG/ML SDV IVPUSH ONE ×2 (21:06→22:20)
[2023-05-28 22:51] VITALS: BP 130/59; PULSE 62
== END 2023-05-28 22:42 | disposition home or self-care (01) ==
LOC: DL.ED 19:04
DX: U07.1 COVID-19 (principal); I10 Essential (primary) hypertension; E11.9 Type 2 diabetes mellitus without complications; G40.909 Epilepsy, unspecified, not intractable, without status epilepticus; E11.21 Type 2 diabetes mellitus with diabetic nephropathy; I25.2 Old myocardial infarction; Z79.82 Long term (current) use of aspirin; Z79.84 Long term (current) use of oral hypoglycemic drugs; Z79.4 Long term (current) use of insulin; Z79.899 Other long term (current) drug therapy
CPT/HCPCS: 36415; 71046; 80053; 83605; 83880; 84484; 85025; 87804; 93005; 96374; 96375; 96376; 99285; A9270; J1100; J2270; U0002; J3490

== ENCOUNTER 2023-05-29 01:15 | Inpatient (IN) | payer MEDICARE, MEDICAID ==
[2023-05-29] MEDS ORDERED: Morphine 2 MG/ML SYRINGE IVPUSH PRN (01:26)
[2023-05-29] MEDS ORDERED: Iopamidol 755 Mg/ML 100 ML Bottle IVPUSH ONE (02:00)
[2023-05-29 06:21] LABS: HEMATOCRIT 37.6 % (40.0-54.0); HEMOGLOBIN 12.4 g/dL (14.0-18.0); LYMPHOCYTES PERCENT AUTO 20.8 % (20.5-50.1); MEAN CORPUSCULAR HEMOGLOBIN 28.4 pg (27.0-34.0); MONOCYTES PERCENT AUTO 0.8 % (2-8); NEUTROPHILS PERCENT AUTO 78.4 % (42.2-75.2); PLATELET COUNT,PLT 207 10^3/uL (150-450); RED BLOOD CELL COUNT 4.37 10^6/uL (4.6-6.2); WHITE BLOOD CELL COUNT,WBC 7.3 10^3/uL (5.0-10.0)
[2023-05-29 06:42] LABS: ALBUMIN 3.1 g/dL (3.4-5.0); ANION GAP 14.4 mEq/L (7-13); BILIRUBIN TOTAL 0.4 mg/dL (0.2-1.0); BUN/CREATININE RATIO 22.3 (No establ ref range); CALCIUM 8.9 mg/dL (8.5-10.1); CREATININE 1.57 mg/dL (0.70-1.30); EST CRCL DRUG DOSING (CG) 52.31 mL/min; POTASSIUM,K 4.4 mmol/L (3.5-5.1); PROTEIN TOTAL,TP 7.6 g/dL (6.4-8.2)
[2023-05-29 06:43] LABS: A/G RATIO 0.69
[2023-05-29] MEDS ORDERED: Albuterol 6.7 GM Inhaler INH ONE (09:59)
[2023-05-29] MEDS ORDERED: Albuterol 6.7 GM Inhaler INH PRN (10:05)
[2023-05-29] MEDS ORDERED: REMDESIVIR 200 MG in Sodium Chloride 0.9% 250 ML IV ONE (10:08)
[2023-05-29] MEDS ORDERED: Ondansetron 4 MG Tab.DIS PO PRN (10:10)
[2023-05-29] MEDS ORDERED: Nitroglycerin 0.4 MG Tab.SL SL PRN (10:12)
[2023-05-29] MEDS ORDERED: Acetaminophen 325 MG Tab PO PRN (10:12)
[2023-05-29] MEDS ORDERED: PRASUGREL HCL 10 MG PO SCH (10:15)
[2023-05-29] MEDS ORDERED: Non-Formulary Medication 1 Each (Gabapentin 600 MG Tablet) PO SCH (10:15)
[2023-05-29] MEDS ORDERED: ALOGLIPTIN 25 MG PO SCH (10:15)
[2023-05-29] MEDS ORDERED: Heparin Sodium/0.45% NaCl 25,000 UNITS/500 ML BAG IV SCH (10:45)
[2023-05-29] MEDS ORDERED: Heparin Sodium 5,000 Units/ML Vial IVPUSH ONE (11:30)
[2023-05-29] MEDS ORDERED: levETIRAcetam 500 MG Tab PO SCH (11:45)
[2023-05-29] MEDS ORDERED: Dexamethasone 6 MG TABLET PO SCH (11:45)
[2023-05-29] MEDS ORDERED: Aspirin 81 MG Tab.EC PO SCH (12:00)
[2023-05-29] MEDS ORDERED: Albuterol 6.7 GM Inhaler INH SCH (12:00)
[2023-05-29] MEDS ORDERED: prednisoLONE Acetate 1% Ophth Susp 5 ML Bottle EYERT SCH (13:00)
[2023-05-29] MEDS: Albuterol 6.7 GM Inhaler INH SCH ×2 (14:07→17:05)
[2023-05-29] MEDS: Insulin Lispro 100 Units/ML 3 ML Vial SUBCUT SCH ×2 (14:21→17:08)
[2023-05-29 16:35] VITALS: BP 125/76; PULSE 66
[2023-05-29] MEDS ORDERED: Insulin Glarg,Human.Rec.Analog 100 Unit/ML 10 ML Vial SUBCUT SCH (21:00)
[2023-05-29] MEDS ORDERED: Rosuvastatin 10 MG Tab PO SCH (21:00)
[2023-05-29] MEDS ORDERED: Montelukast 10 MG Tab PO SCH (21:00)
[2023-05-30] MEDS ORDERED: Dexamethasone 6 MG TABLET PO SCH (08:00)
[2023-05-30] MEDS ORDERED: Lisinopril 20 MG Tab PO SCH (09:00)
[2023-05-30] MEDS ORDERED: Metoprolol Succinate 50 MG Tab.ER PO SCH (09:00)
[2023-05-30] MEDS ORDERED: REMDESIVIR 100 MG in Sodium Chloride 0.9% 100 ML IV SCH (11:00)
== END 2023-05-29 17:45 | DRG 178 ==
LOC: UNDOADMIN 01:15 → DL.MS 01:15
PROVIDERS: ADMIT Hospitalist; ATTEND Hospitalist
PROC: XW033E5 Introduction of Remdesivir Anti-infective into Peripheral Vein, Percutaneous Approach, New Technology Group 5 (ICD-10-PCS; principal; 2023-05-29)
PROC: 3E0333Z Introduction of Anti-inflammatory into Peripheral Vein, Percutaneous Approach (ICD-10-PCS; 2023-05-29)
DX: U07.1 COVID-19 (principal); I24.8 Other forms of acute ischemic heart disease; I25.10 Atherosclerotic heart disease of native coronary artery without angina pectoris; E66.01 Morbid (severe) obesity due to excess calories; G40.909 Epilepsy, unspecified, not intractable, without status epilepticus; E11.21 Type 2 diabetes mellitus with diabetic nephropathy; I12.9 Hypertensive chronic kidney disease with stage 1 through stage 4 chronic kidney disease, or unspecified chronic kidney disease; N18.30 Chronic kidney disease, stage 3 unspecified; E11.22 Type 2 diabetes mellitus with diabetic chronic kidney disease; I25.2 Old myocardial infarction; K59.09 Other constipation; Z79.82 Long term (current) use of aspirin; Z79.899 Other long term (current) drug therapy; Z95.5 Presence of coronary angioplasty implant and graft; Z79.4 Long term (current) use of insulin; Z68.39 Body mass index [BMI] 39.0-39.9, adult; Z90.49 Acquired absence of other specified parts of digestive tract
CPT/HCPCS: 36415; 71250; 80053; 82248; 82947; 84484; 85025; 85379; 85730; 93005; 94010; 94060; 94664; 94667; 94668; A9270-GY; J0248; J1644; J1815-GY; J7050; J8540

== ENCOUNTER 2023-06-26 12:38 | Emergency (ER) | payer MEDICARE, MEDICAID ==
[2023-06-26] MEDS ORDERED: Sodium Chloride 0.9% 10 ML Syringe FLUSH PRN (12:41)
[2023-06-26 13:01] LABS: HEMATOCRIT 37.8 % (40.0-54.0); HEMOGLOBIN 12.5 g/dL (14.0-18.0); MEAN CORPUSCULAR HEMOGLOBIN 29.6 pg (27.0-34.0); MEAN CORPUSCULAR HGB CONC 33.1 g/dL (33.0-35.0); MEAN CORPUSCULAR VOLUME 89.6 fL (80-100); PLATELET COUNT,PLT 183 10^3/uL (150-450); RED BLOOD CELL COUNT 4.22 10^6/uL (4.6-6.2)
[2023-06-26 13:04] LABS: BASOPHILS PERCENT AUTO 0.1 % (0.0-1.0); EOSINOPHILS PERCENT AUTO 2.8 % (1.0-3.0); LYMPHOCYTES PERCENT AUTO 31.4 % (20.5-50.1); MONOCYTES PERCENT AUTO 8.9 % (2-8); NEUTROPHILS PERCENT AUTO 56.8 % (42.2-75.2)
[2023-06-26 13:14] LABS: INR 0.9 (0.9-1.2)
[2023-06-26] MEDS: Aspirin 81 MG Tab.Chew PO ONE (13:19)
[2023-06-26 13:23] LABS: EOSINOPHILS PERCENT MAN 2 % (1-3); LYMPHOCYTES PERCENT MAN 24 % (20-50); MONOCYTES PERCENT MAN 10 % (2-8); SEG NEUTROPHILS PERCENT MAN 64 % (42-75)
[2023-06-26 13:26] LABS: LACTIC ACID 1.4 mmol/L (0.4-2.0)
[2023-06-26 13:27] VITALS: BP 147/79; PULSE 76
[2023-06-26 13:29] LABS: ALANINE AMINOTRANSFERASE,ALT 26 U/L (16-63); ALKALINE PHOSPHATASE 81 U/L (46-116); AMYLASE 48 U/L (25-115); ANION GAP 10.1 mEq/L (7-13); ASPARTATE AMNIOTRANSFERASE,AST 16 U/L (15-37); BILIRUBIN TOTAL 0.3 mg/dL (0.2-1.0); BLOOD UREA NITROGEN,BUN 24 mg/dL (7-18); BUN/CREATININE RATIO 19.5 (No establ ref range); C-REACTIVE PROTEIN 0.24 ng/dL (<=0.30); CALCIUM 8.9 mg/dL (8.5-10.1); CARBON DIOXIDE,CO2 29 mmol/L (21-32); CHLORIDE,CL 107 mmol/L (98-107); CREATININE 1.23 mg/dL (0.70-1.30); GLUCOSE RANDOM 137 mg/dL (70-99); LIPASE 36 U/L (16-77); MAGNESIUM 1.7 mg/dL (1.8-2.4); POTASSIUM,K 4.1 mmol/L (3.5-5.1); SODIUM,NA 142 mmol/L (136-145); TSH ULTRASENSITIVE 1.69 uIU/mL (0.36-3.74)
[2023-06-26 13:30] LABS: A/G RATIO 0.75; B-TYPE NATRIURETIC PEPTIDE,BNP 146 pg/ml (0-100); ESTIMATED GFR 65 mL/min (>=60); ETHANOL BLOOD MEDICAL < 3 mg/dL (0)
== END 2023-06-26 15:49 | disposition home or self-care (01) ==
LOC: DL.ED 12:38
DX: R07.9 Chest pain, unspecified (principal); I10 Essential (primary) hypertension; I25.10 Atherosclerotic heart disease of native coronary artery without angina pectoris; G40.909 Epilepsy, unspecified, not intractable, without status epilepticus; I25.2 Old myocardial infarction; E11.21 Type 2 diabetes mellitus with diabetic nephropathy; E66.01 Morbid (severe) obesity due to excess calories; Z79.4 Long term (current) use of insulin; Z79.899 Other long term (current) drug therapy
CPT/HCPCS: 36415; 71045; 80053; 80307; 82150; 83605; 83690; 83735; 83880; 84443; 84484; 85025; 85610; 86140; 93005; 99285; A9270

== ENCOUNTER 2023-07-07 18:11 | Emergency (ER) | payer MEDICARE, MEDICAID ==
[2023-07-07 18:36] VITALS: BP 104/71; PULSE 90
[2023-07-07] MEDS ORDERED: Sodium Chloride 0.9% 10 ML Syringe FLUSH PRN (18:47)
[2023-07-07 18:56] LABS: BASOPHILS PERCENT AUTO 0.2 % (0.0-1.0); EOSINOPHILS PERCENT AUTO 1.2 % (1.0-3.0); HEMATOCRIT 39.8 % (40.0-54.0); HEMOGLOBIN 12.6 g/dL (14.0-18.0); LYMPHOCYTES PERCENT AUTO 28.3 % (20.5-50.1); MEAN CORPUSCULAR HEMOGLOBIN 28.7 pg (27.0-34.0); MEAN CORPUSCULAR HGB CONC 31.7 g/dL (33.0-35.0); MEAN CORPUSCULAR VOLUME 90.7 fL (80-100); MONOCYTES PERCENT AUTO 7.9 % (2-8); NEUTROPHILS PERCENT AUTO 62.4 % (42.2-75.2); PLATELET COUNT,PLT 206 10^3/uL (150-450); RED BLOOD CELL COUNT 4.39 10^6/uL (4.6-6.2); WHITE BLOOD CELL COUNT,WBC 9.6 10^3/uL (5.0-10.0)
[2023-07-07 19:06] LABS: A/G RATIO 0.7; ALBUMIN 3.2 g/dL (3.4-5.0); ANION GAP 15.5 mEq/L (7-13); BILIRUBIN TOTAL 0.4 mg/dL (0.2-1.0); BUN/CREATININE RATIO 23.4 (No establ ref range); CALCIUM 9.2 mg/dL (8.5-10.1); CREATININE 1.37 mg/dL (0.70-1.30); EST CRCL DRUG DOSING (CG) 59.94 mL/min; LACTIC ACID 0.9 mmol/L (0.4-2.0); POTASSIUM,K 4.5 mmol/L (3.5-5.1); PROTEIN TOTAL,TP 7.8 g/dL (6.4-8.2)
[2023-07-07 19:53] LABS: APPEARANCE,URINE CLEAR (CLEAR); BILIRUBIN,URINE NEGATIVE (NEGATIVE); COLOR,URINE YELLOW (YELLOW); GLUCOSE,URINE NEGATIVE (NEGATIVE); KETONES,URINE NEGATIVE (NEGATIVE); LEUKOCYTE ESTERASE,URINE NEGATIVE (NEGATIVE); NITRITE,URINE NEGATIVE (NEGATIVE); OCCULT BLOOD,URINE NEGATIVE (NEGATIVE); PROTEIN,URINE 100 (NEGATIVE); UROBILINOGEN,URINE 0.2 mg/dL (0.2-1.0)
[2023-07-07 20:02] LABS: AMORPHOUS SEDIMENT,URINE FEW /HPF (NOT SEEN); BACTERIA,URINE FEW /HPF (0-FEW/HPF); EPITHELIAL CELLS,URINE RARE /HPF (NOT SEEN); MUCUS,URINE FEW /LPF (NOT SEEN); RBC,URINE 0-5 /HPF (0-5); WBC,URINE 0-5 /HPF (0-5/HPF)
[2023-07-07] MEDS ORDERED: Aspirin 81 MG Tab.Chew PO ONE (20:16)
[2023-07-07] MEDS ORDERED: Sodium Chloride 0.9% 1,000 ML IV ONE (21:03)
[2023-07-07] MEDS ORDERED: levETIRAcetam 500 MG Tab PO ONE (21:40)
== END 2023-07-07 22:04 | disposition home or self-care (01) ==
LOC: DL.ED 18:11
DX: I25.110 Atherosclerotic heart disease of native coronary artery with unstable angina pectoris (principal); I10 Essential (primary) hypertension; I25.2 Old myocardial infarction; E11.21 Type 2 diabetes mellitus with diabetic nephropathy; E78.5 Hyperlipidemia, unspecified; Z79.4 Long term (current) use of insulin; Z79.82 Long term (current) use of aspirin; Z79.899 Other long term (current) drug therapy
CPT/HCPCS: 36415; 71045; 80053; 81001; 83605; 84484; 85025; 85379; 93005; 93010; 96360; 99284; 99285; A9270; J7030; J3490

== ENCOUNTER 2023-07-31 14:10 | Emergency (ER) | payer MEDICARE, MEDICAID ==
[2023-07-31] MEDS ORDERED: Sodium Chloride 0.9% 10 ML Syringe FLUSH PRN (14:11)
[2023-07-31 14:21] LABS: HEMATOCRIT 36.6 % (40.0-54.0); HEMOGLOBIN 12.7 g/dL (14.0-18.0); MEAN CORPUSCULAR HEMOGLOBIN 31.2 pg (27.0-34.0); MEAN CORPUSCULAR HGB CONC 34.7 g/dL (33.0-35.0); MEAN CORPUSCULAR VOLUME 89.9 fL (80-100); PLATELET COUNT,PLT 178 10^3/uL (150-450); RED BLOOD CELL COUNT 4.07 10^6/uL (4.6-6.2); WHITE BLOOD CELL COUNT,WBC 9.4 10^3/uL (5.0-10.0)
[2023-07-31 14:24] LABS: BASOPHILS PERCENT AUTO 0.2 % (0.0-1.0); EOSINOPHILS PERCENT AUTO 2.3 % (1.0-3.0); LYMPHOCYTES PERCENT AUTO 27.6 % (20.5-50.1); MONOCYTES PERCENT AUTO 9.8 % (2-8); NEUTROPHILS PERCENT AUTO 60.1 % (42.2-75.2)
[2023-07-31 14:27] VITALS: BP 123/77; PULSE 70
[2023-07-31 14:43] LABS: ANION GAP 10.2 mEq/L (7-13); BILIRUBIN TOTAL 0.4 mg/dL (0.2-1.0); BUN/CREATININE RATIO 24.7 (No establ ref range); CALCIUM 8.6 mg/dL (8.5-10.1); CREATININE 0.97 mg/dL (0.70-1.30); EST CRCL DRUG DOSING (CG) 82.22 mL/min; POTASSIUM,K 4.2 mmol/L (3.5-5.1); PROTEIN TOTAL,TP 7.2 g/dL (6.4-8.2)
[2023-07-31 14:49] LABS: BAND PERCENT MAN 4 %; EOSINOPHILS PERCENT MAN 3 % (1-3); LYMPHOCYTES PERCENT MAN 23 % (20-50); MONOCYTES PERCENT MAN 8 % (2-8); SEG NEUTROPHILS PERCENT MAN 62 % (42-75)
[2023-07-31 14:51] LABS: A/G RATIO 0.71
== END 2023-07-31 16:57 | disposition home or self-care (01) ==
LOC: DL.ED 14:10
DX: R07.89 Other chest pain (principal); I25.2 Old myocardial infarction; I25.10 Atherosclerotic heart disease of native coronary artery without angina pectoris; E11.21 Type 2 diabetes mellitus with diabetic nephropathy; Z79.4 Long term (current) use of insulin
CPT/HCPCS: 36415; 71045; 80053; 83880; 84484; 85025; 93005; 93010; 99284; 99285

== ENCOUNTER 2023-08-05 16:14 | Emergency (ER) | payer MEDICARE, MEDICAID ==
[2023-08-05] MEDS ORDERED: Sodium Chloride 0.9% 10 ML Syringe FLUSH PRN (16:23)
[2023-08-05 16:48] LABS: BASOPHILS PERCENT AUTO 0.1 % (0.0-1.0); EOSINOPHILS PERCENT AUTO 2.9 % (1.0-3.0); HEMATOCRIT 38.1 % (40.0-54.0); HEMOGLOBIN 12.3 g/dL (14.0-18.0); LYMPHOCYTES PERCENT AUTO 33.2 % (20.5-50.1); MEAN CORPUSCULAR HEMOGLOBIN 29.2 pg (27.0-34.0); MEAN CORPUSCULAR HGB CONC 32.3 g/dL (33.0-35.0); MEAN CORPUSCULAR VOLUME 90.5 fL (80-100); MONOCYTES PERCENT AUTO 9.2 % (2-8); NEUTROPHILS PERCENT AUTO 54.6 % (42.2-75.2); PLATELET COUNT,PLT 171 10^3/uL (150-450); RED BLOOD CELL COUNT 4.21 10^6/uL (4.6-6.2); WHITE BLOOD CELL COUNT,WBC 7.6 10^3/uL (5.0-10.0)
[2023-08-05 16:49] VITALS: PULSE 64
[2023-08-05 16:58] LABS: INR 0.9 (0.9-1.2); PROTHROMBIN TIME 9.5 SEC (9.0-12.0); PTT,PARTIAL THROMBOPLSTIN TIME 24.7 SEC (22.0-34.0)
[2023-08-05 17:04] LABS: ALBUMIN 3.2 g/dL (3.4-5.0); ANION GAP 11.4 mEq/L (7-13); BILIRUBIN TOTAL 0.5 mg/dL (0.2-1.0); BUN/CREATININE RATIO 24.6 (No establ ref range); CALCIUM 8.5 mg/dL (8.5-10.1); CREATININE 1.34 mg/dL (0.70-1.30); EST CRCL DRUG DOSING (CG) 61.28 mL/min; LACTIC ACID 1.1 mmol/L (0.4-2.0); MAGNESIUM 1.8 mg/dL (1.8-2.4); POTASSIUM,K 4.4 mmol/L (3.5-5.1); PROTEIN TOTAL,TP 7.6 g/dL (6.4-8.2)
[2023-08-05 17:06] LABS: A/G RATIO 0.73
[2023-08-05 18:43] VITALS: BP 138/85
== END 2023-08-05 18:44 | disposition home or self-care (01) ==
LOC: DL.ED 16:14
DX: R07.89 Other chest pain (principal); I25.2 Old myocardial infarction; E11.9 Type 2 diabetes mellitus without complications; Z90.49 Acquired absence of other specified parts of digestive tract; Z79.899 Other long term (current) drug therapy; Z79.4 Long term (current) use of insulin; Z79.82 Long term (current) use of aspirin
CPT/HCPCS: 36415; 71045; 80053; 80307; 83605; 83735; 83880; 84484; 85025; 85610; 85730; 93005; 93010; 99284; 99285; J3490

== ENCOUNTER 2023-08-30 12:49 | Emergency (ER) | payer MEDICARE, MEDICAID ==
[2023-08-30] MEDS ORDERED: Sodium Chloride 0.9% 10 ML Syringe FLUSH PRN (12:51)
[2023-08-30] MEDS ORDERED: Ondansetron 4 MG/2 ML SDV IVPUSH ONE (13:04)
[2023-08-30 13:10] LABS: BASOPHILS PERCENT AUTO 0.1 % (0.0-1.0); EOSINOPHILS PERCENT AUTO 3.2 % (1.0-3.0); HEMATOCRIT 38.3 % (40.0-54.0); HEMOGLOBIN 12.6 g/dL (14.0-18.0); LYMPHOCYTES PERCENT AUTO 37.9 % (20.5-50.1); MEAN CORPUSCULAR HEMOGLOBIN 29.4 pg (27.0-34.0); MEAN CORPUSCULAR HGB CONC 32.9 g/dL (33.0-35.0); MEAN CORPUSCULAR VOLUME 89.3 fL (80-100); MONOCYTES PERCENT AUTO 7.3 % (2-8); NEUTROPHILS PERCENT AUTO 51.5 % (42.2-75.2); PLATELET COUNT,PLT 170 10^3/uL (150-450); RED BLOOD CELL COUNT 4.29 10^6/uL (4.6-6.2); WHITE BLOOD CELL COUNT,WBC 8.1 10^3/uL (5.0-10.0)
[2023-08-30 13:29] LABS: B-TYPE NATRIURETIC PEPTIDE,BNP 171 pg/ml (0-100)
[2023-08-30 13:32] LABS: ALANINE AMINOTRANSFERASE,ALT 27 U/L (16-63); ALBUMIN 3.3 g/dL (3.4-5.0); ALKALINE PHOSPHATASE 78 U/L (46-116); ASPARTATE AMNIOTRANSFERASE,AST 16 U/L (15-37); BILIRUBIN TOTAL 0.4 mg/dL (0.2-1.0); BLOOD UREA NITROGEN,BUN 34 mg/dL (7-18); BUN/CREATININE RATIO 32.7 (No establ ref range); CALCIUM 8.9 mg/dL (8.5-10.1); CARBON DIOXIDE,CO2 23 mmol/L (21-32); CHLORIDE,CL 109 mmol/L (98-107); CREATININE 1.04 mg/dL (0.70-1.30); EST CRCL DRUG DOSING (CG) 72.14 mL/min; GLUCOSE RANDOM 103 mg/dL (70-99); MAGNESIUM 1.6 mg/dL (1.8-2.4); PROTEIN TOTAL,TP 7.6 g/dL (6.4-8.2); SODIUM,NA 140 mmol/L (136-145)
[2023-08-30 13:33] LABS: A/G RATIO 0.77; C-REACTIVE PROTEIN < 0.50 ng/dL (<=0.50); ESTIMATED GFR 79 mL/min (>=60)
[2023-08-30 13:35] LABS: INR 0.9 (0.9-1.2); PROTHROMBIN TIME 9.4 SEC (9.0-12.0); PTT,PARTIAL THROMBOPLSTIN TIME 24.1 SEC (22.0-34.0)
[2023-08-30] MEDS ORDERED: Heparin Sodium 5,000 Units/ML Vial IVPUSH ONE (13:40)
[2023-08-30] MEDS ORDERED: Aspirin 81 MG Tab.Chew PO ONE (13:40)
[2023-08-30] MEDS ORDERED: Clopidogrel 75 MG Tab PO ONE (13:40)
[2023-08-30] MEDS ORDERED: atorvaSTATin 20 MG Tab PO ONE (13:40)
[2023-08-30] MEDS ORDERED: Heparin Sodium/0.45% NaCl 25,000 UNITS/500 ML BAG IV SCH (13:45)
[2023-08-30 14:24] VITALS: BP 153/93; PULSE 62
== END 2023-08-30 15:15 ==
LOC: DL.ED 12:49
DX: I21.4 Non-ST elevation (NSTEMI) myocardial infarction (principal); E11.21 Type 2 diabetes mellitus with diabetic nephropathy; E66.9 Obesity, unspecified; Z68.43 Body mass index [BMI] 50.0-59.9, adult; I25.2 Old myocardial infarction; Z79.82 Long term (current) use of aspirin; Z79.4 Long term (current) use of insulin; Z79.84 Long term (current) use of oral hypoglycemic drugs; Z79.899 Other long term (current) drug therapy
CPT/HCPCS: 36415; 71045; 80053; 82140; 83605; 83735; 83880; 84145; 84484; 85025; 85610; 85730; 86140; 93005; 96365; 96375; 99285; A9270; J1644; J2405; 93010; J3490

== ENCOUNTER 2023-10-27 16:57 | Emergency (ER) | payer MEDICARE, MEDICAID ==
[2023-10-27 17:26] VITALS: BP 144/66; PULSE 70
[2023-10-27 17:26] LABS: BASOPHILS PERCENT AUTO 0.1 % (0.0-1.0); EOSINOPHILS PERCENT AUTO 4.3 % (1.0-3.0); HEMATOCRIT 37.8 % (40.0-54.0); HEMOGLOBIN 12.4 g/dL (14.0-18.0); LYMPHOCYTES PERCENT AUTO 36.1 % (20.5-50.1); MEAN CORPUSCULAR HEMOGLOBIN 29.5 pg (27.0-34.0); MEAN CORPUSCULAR HGB CONC 32.8 g/dL (33.0-35.0); MEAN CORPUSCULAR VOLUME 89.8 fL (80-100); MONOCYTES PERCENT AUTO 9.3 % (2-8); NEUTROPHILS PERCENT AUTO 50.2 % (42.2-75.2); PLATELET COUNT,PLT 170 10^3/uL (150-450); RED BLOOD CELL COUNT 4.21 10^6/uL (4.6-6.2); WHITE BLOOD CELL COUNT,WBC 7.6 10^3/uL (5.0-10.0)
[2023-10-27 17:47] LABS: APPEARANCE,URINE CLEAR (CLEAR); BILIRUBIN,URINE NEGATIVE (NEGATIVE); COLOR,URINE YELLOW (YELLOW); GLUCOSE,URINE NEGATIVE (NEGATIVE); KETONES,URINE NEGATIVE (NEGATIVE); LEUKOCYTE ESTERASE,URINE NEGATIVE (NEGATIVE); NITRITE,URINE NEGATIVE (NEGATIVE); OCCULT BLOOD,URINE NEGATIVE (NEGATIVE); PH,URINE 5.5 (5.0-9.0); PROTEIN,URINE 100 (NEGATIVE); UROBILINOGEN,URINE 0.2 mg/dL (0.2-1.0)
[2023-10-27 17:49] LABS: ALANINE AMINOTRANSFERASE,ALT 27 U/L (16-63); ALKALINE PHOSPHATASE 92 U/L (46-116); ANION GAP 11.9 mEq/L (7-13); ASPARTATE AMNIOTRANSFERASE,AST 17 U/L (15-37); BILIRUBIN TOTAL 0.5 mg/dL (0.2-1.0); BLOOD UREA NITROGEN,BUN 24 mg/dL (7-18); BUN/CREATININE RATIO 20.9 (No establ ref range); CALCIUM 8.5 mg/dL (8.5-10.1); CARBON DIOXIDE,CO2 27 mmol/L (21-32); CHLORIDE,CL 108 mmol/L (98-107); CREATININE 1.15 mg/dL (0.70-1.30); EST CRCL DRUG DOSING (CG) 68.42 mL/min; GLUCOSE RANDOM 118 mg/dL (70-99); MAGNESIUM 1.6 mg/dL (1.8-2.4); POTASSIUM,K 3.9 mmol/L (3.5-5.1); PROTEIN TOTAL,TP 6.9 g/dL (6.4-8.2); SODIUM,NA 143 mmol/L (136-145)
[2023-10-27 17:50] LABS: LACTIC ACID 0.8 mmol/L (0.4-2.0)
[2023-10-27] MEDS: Sodium Chloride 0.9% 10 ML Syringe FLUSH PRN (17:52)
[2023-10-27 17:54] LABS: AMPHETAMINES,URINE NEGATIVE (NEGATIVE); BARBITURATES,URINE NEGATIVE (NEGATIVE); BENZODIAZEPINE,URINE NEGATIVE (NEGATIVE); MDMA (ECSTASY), URINE NEGATIVE (NEGATIVE); METHADONE,URINE NEGATIVE (NEGATIVE); METHAMPHETAMINES,URINE NEGATIVE (NEGATIVE); OPIATES,URINE NEGATIVE (NEGATIVE); OXYCODONE,URINE NEGATIVE (NEGATIVE); PHENCYCLIDINE,URINE NEGATIVE (NEGATIVE); TCA,URINE NEGATIVE (NEGATIVE)
[2023-10-27 17:56] LABS: A/G RATIO 0.77; ESTIMATED GFR 70 mL/min (>=60); PROTHROMBIN TIME 9.8 SEC (9.0-12.0); PTT,PARTIAL THROMBOPLSTIN TIME 26.1 SEC (22.0-34.0)
[2023-10-27 17:57] LABS: C-REACTIVE PROTEIN < 0.50 ng/dL (<=0.50)
[2023-10-27 18:04] LABS: AMORPHOUS SEDIMENT,URINE FEW /HPF (NOT SEEN); BACTERIA,URINE RARE /HPF (0-FEW/HPF); EPITHELIAL CELLS,URINE RARE /HPF (NOT SEEN); MUCUS,URINE FEW /LPF (NOT SEEN); RBC,URINE 0-5 /HPF (0-5); WBC,URINE 0-5 /HPF (0-5/HPF)
[2023-10-27 18:10] LABS: B-TYPE NATRIURETIC PEPTIDE,BNP 97 pg/ml (0-100)
[2023-10-27 18:25] LABS: INFLUENZA A NAA NEGATIVE (NEGATIVE); INFLUENZA B NAA NEGATIVE (NEGATIVE); RESPIRATORY SYNCYTIAL VIR NAA NEGATIVE (NEGATIVE)
[2023-10-27 18:27] LABS: CORONAVIRUS COVID-19 NAA POSITIVE (NEGATIVE)
[2023-10-27] MEDS: Acetaminophen 500 MG Tab PO ONE (19:26)
== END 2023-10-27 20:11 | disposition home or self-care (01) ==
LOC: DL.ED 16:57
DX: U07.1 COVID-19 (principal); R07.89 Other chest pain; I10 Essential (primary) hypertension; E78.00 Pure hypercholesterolemia, unspecified; I25.10 Atherosclerotic heart disease of native coronary artery without angina pectoris; I25.2 Old myocardial infarction; E11.9 Type 2 diabetes mellitus without complications; Z95.5 Presence of coronary angioplasty implant and graft; Z79.82 Long term (current) use of aspirin; Z79.84 Long term (current) use of oral hypoglycemic drugs; Z79.899 Other long term (current) drug therapy
CPT/HCPCS: 0241U; 36415; 71045; 80053; 80305-QW; 81001; 83605; 83735; 83880; 84484; 85025; 85610; 85730; 86140; 93005; 99285; A9270-GY; J3490

== ENCOUNTER 2023-11-17 13:06 | Emergency (ER) | payer MEDICARE, MEDICAID ==
[2023-11-17 14:53] LABS: BASOPHILS PERCENT AUTO 0.1 % (0.0-1.0); EOSINOPHILS PERCENT AUTO 3.3 % (1.0-3.0); HEMATOCRIT 41.2 % (40.0-54.0); HEMOGLOBIN 13.3 g/dL (14.0-18.0); LYMPHOCYTES PERCENT AUTO 37.1 % (20.5-50.1); MEAN CORPUSCULAR HEMOGLOBIN 28.8 pg (27.0-34.0); MEAN CORPUSCULAR HGB CONC 32.3 g/dL (33.0-35.0); MEAN CORPUSCULAR VOLUME 89.2 fL (80-100); NEUTROPHILS PERCENT AUTO 52.5 % (42.2-75.2); PLATELET COUNT,PLT 182 10^3/uL (150-450); RED BLOOD CELL COUNT 4.62 10^6/uL (4.6-6.2); WHITE BLOOD CELL COUNT,WBC 9.4 10^3/uL (5.0-10.0)
[2023-11-17 15:07] LABS: A/G RATIO 0.8; ALBUMIN 3.5 g/dL (3.4-5.0); ANION GAP 15.3 mEq/L (7-13); BILIRUBIN TOTAL 0.6 mg/dL (0.2-1.0); BUN/CREATININE RATIO 18.1 (No establ ref range); CREATININE 1.05 mg/dL (0.70-1.30); EST CRCL DRUG DOSING (CG) 77.15 mL/min; POTASSIUM,K 4.3 mmol/L (3.5-5.1); PROTEIN TOTAL,TP 7.9 g/dL (6.4-8.2)
[2023-11-17 15:29] LABS: CORONAVIRUS COVID-19 NAA NEGATIVE (NEGATIVE); INFLUENZA A NAA NEGATIVE (NEGATIVE); INFLUENZA B NAA NEGATIVE (NEGATIVE); RESPIRATORY SYNCYTIAL VIR NAA NEGATIVE (NEGATIVE)
[2023-11-17 18:54] VITALS: BP 138/77; PULSE 67
== END 2023-11-17 18:53 | disposition home or self-care (01) ==
LOC: DL.ED 13:06
DX: R53.81 Other malaise (principal); I25.2 Old myocardial infarction; E11.9 Type 2 diabetes mellitus without complications; I10 Essential (primary) hypertension; G40.909 Epilepsy, unspecified, not intractable, without status epilepticus; Z79.82 Long term (current) use of aspirin; Z79.899 Other long term (current) drug therapy; Z86.19 Personal history of other infectious and parasitic diseases; Z86.16 Personal history of COVID-19; Z79.84 Long term (current) use of oral hypoglycemic drugs; Z79.4 Long term (current) use of insulin
CPT/HCPCS: 0241U; 36415; 80053; 83735; 84484; 85025; 93005; 99285

== ENCOUNTER 2024-01-15 17:31 | Emergency (ER) | payer MEDICARE, MEDICAID ==
[2024-01-15] MEDS: Sodium Chloride 0.9% 1,000 ML IV ONE ×3 (17:40→19:03)
[2024-01-15 17:51] LABS: BASOPHILS PERCENT AUTO 0.1 % (0.0-1.0); EOSINOPHILS PERCENT AUTO 0.1 % (1.0-3.0); HEMATOCRIT 41.1 % (40.0-54.0); HEMOGLOBIN 13.4 g/dL (14.0-18.0); LYMPHOCYTES PERCENT AUTO 3.4 % (20.5-50.1); MEAN CORPUSCULAR HEMOGLOBIN 28.6 pg (27.0-34.0); MEAN CORPUSCULAR HGB CONC 32.6 g/dL (33.0-35.0); MEAN CORPUSCULAR VOLUME 87.8 fL (80-100); MONOCYTES PERCENT AUTO 3.6 % (2-8); NEUTROPHILS PERCENT AUTO 92.8 % (42.2-75.2); PLATELET COUNT,PLT 156 10^3/uL (150-450); RED BLOOD CELL COUNT 4.68 10^6/uL (4.6-6.2); WHITE BLOOD CELL COUNT,WBC 14.3 10^3/uL (5.0-10.0)
[2024-01-15 17:53] VITALS: BP 83/47; PULSE 93
[2024-01-15 18:13] LABS: ALANINE AMINOTRANSFERASE,ALT 77 U/L (16-63); ALBUMIN 3.3 g/dL (3.4-5.0); ALKALINE PHOSPHATASE 85 U/L (46-116); ANION GAP 20.6 mEq/L (7-13); ASPARTATE AMNIOTRANSFERASE,AST 46 U/L (15-37); BILIRUBIN TOTAL 0.5 mg/dL (0.2-1.0); BLOOD UREA NITROGEN,BUN 54 mg/dL (7-18); BUN/CREATININE RATIO 19.4 (No establ ref range); C-REACTIVE PROTEIN 4.36 ng/dL (<=0.50); CALCIUM 8.6 mg/dL (8.5-10.1); CARBON DIOXIDE,CO2 17 mmol/L (21-32); CHLORIDE,CL 109 mmol/L (98-107); CREATININE 2.79 mg/dL (0.70-1.30); GLUCOSE RANDOM 145 mg/dL (70-99); MAGNESIUM 1.3 mg/dL (1.8-2.4); POTASSIUM,K 4.6 mmol/L (3.5-5.1); PROTEIN TOTAL,TP 7.8 g/dL (6.4-8.2); SODIUM,NA 142 mmol/L (136-145)
[2024-01-15 18:15] LABS: PROTHROMBIN TIME 10.6 SEC (9.0-12.0)
[2024-01-15 18:17] LABS: A/G RATIO 0.73; ESTIMATED GFR 24 mL/min (>=60)
[2024-01-15 18:19] LABS: LACTIC ACID 3.4 mmol/L (0.4-2.0)
[2024-01-15 18:22] LABS: B-TYPE NATRIURETIC PEPTIDE,BNP 214 pg/ml (0-100)
[2024-01-15 18:45] LABS: O2 DELIVERY DEVICE ROOM AIR
[2024-01-15] MEDS: Piperacillin/Tazobactam 4.5 GM in Sodium Chloride 0.9% 100 ML IV ONE (18:57)
[2024-01-15 18:58] LABS: BASE EXCESS VENOUS -10.8 mmol/l ((-2)-(+3)); BICARBONATE,VENOUS 16 mmol/l (19-25); O2 SATURATION VENOUS 93.2 % (60-80); PCO2 VENOUS 41 mmHg (41-51); PO2 VENOUS 74 mmHg (35-42)
[2024-01-15] MEDS: Vancomycin 2 GM in Sodium Chloride 0.9% 500 ML IV ONE (18:59)
[2024-01-15 19:01] LABS: PH,VENOUS 7.22 (7.31-7.41)
[2024-01-15 19:27] LABS: APPEARANCE,URINE CLEAR (CLEAR); BILIRUBIN,URINE NEGATIVE (NEGATIVE); COLOR,URINE YELLOW (YELLOW); GLUCOSE,URINE NEGATIVE (NEGATIVE); KETONES,URINE NEGATIVE (NEGATIVE); LEUKOCYTE ESTERASE,URINE NEGATIVE (NEGATIVE); NITRITE,URINE NEGATIVE (NEGATIVE); OCCULT BLOOD,URINE NEGATIVE (NEGATIVE); PROTEIN,URINE 100 (NEGATIVE); UROBILINOGEN,URINE 0.2 mg/dL (0.2-1.0)
[2024-01-15] MEDS: Magnesium Sulfate/Water 2 GM in Premix Bag 1 BAG IV ONE (19:35)
[2024-01-15 19:41] LABS: AMPHETAMINES,URINE NEGATIVE (NEGATIVE); BARBITURATES,URINE NEGATIVE (NEGATIVE); BENZODIAZEPINE,URINE NEGATIVE (NEGATIVE); MDMA (ECSTASY), URINE NEGATIVE (NEGATIVE); METHADONE,URINE NEGATIVE (NEGATIVE); METHAMPHETAMINES,URINE NEGATIVE (NEGATIVE); OPIATES,URINE NEGATIVE (NEGATIVE); OXYCODONE,URINE NEGATIVE (NEGATIVE); PHENCYCLIDINE,URINE NEGATIVE (NEGATIVE); TCA,URINE NEGATIVE (NEGATIVE)
[2024-01-15 20:05] LABS: AMORPHOUS SEDIMENT,URINE MODERATE /HPF (NOT SEEN); BACTERIA,URINE MODERATE /HPF (0-FEW/HPF); EPITHELIAL CELLS,URINE FEW /HPF (NOT SEEN); GRANULAR CASTS,URINE FEW; MUCUS,URINE FEW /LPF (NOT SEEN); WBC,URINE 0-5 /HPF (0-5/HPF)
[2024-01-15] MEDS: Acetaminophen 500 MG Tab PO ONE (21:13)
[2024-01-15] MEDS: Sodium Chloride 0.9% 1,000 ML IV SCH (21:36)
[2024-01-15] MEDS: Sodium Chloride 0.9% 10 ML Syringe FLUSH PRN (21:47)
== END 2024-01-15 23:22 ==
LOC: DL.ED 17:31
DX: A41.9 Sepsis, unspecified organism (principal); R65.20 Severe sepsis without septic shock; N17.9 Acute kidney failure, unspecified; R55 Syncope and collapse; I25.2 Old myocardial infarction; I25.10 Atherosclerotic heart disease of native coronary artery without angina pectoris; E11.9 Type 2 diabetes mellitus without complications; I10 Essential (primary) hypertension; Z79.82 Long term (current) use of aspirin; Z79.4 Long term (current) use of insulin; Z79.84 Long term (current) use of oral hypoglycemic drugs; Z79.899 Other long term (current) drug therapy; Z86.16 Personal history of COVID-19; Z95.5 Presence of coronary angioplasty implant and graft
CPT/HCPCS: 36415; 51702; 71045; 80053; 80305; 81001; 82803; 83605; 83735; 83880; 84145; 84484; 85025; 85610; 86140; 87040; 93005; 93010; 96361; 96365; 96366; 96367; 96368; 99285; A9270; J2543; J3370; J3475; J3490; J7030; J7040

== ENCOUNTER 2024-03-19 13:19 | Emergency (ER) | payer MEDICARE, MEDICAID ==
[2024-03-19 13:42] LABS: BASOPHILS PERCENT AUTO 0.1 % (0.0-1.0); EOSINOPHILS PERCENT AUTO 3.7 % (1.0-3.0); HEMATOCRIT 37.6 % (40.0-54.0); HEMOGLOBIN 12.1 g/dL (14.0-18.0); MEAN CORPUSCULAR HEMOGLOBIN 29.1 pg (27.0-34.0); MEAN CORPUSCULAR HGB CONC 32.2 g/dL (33.0-35.0); MEAN CORPUSCULAR VOLUME 90.4 fL (80-100); MONOCYTES PERCENT AUTO 9.1 % (2-8); NEUTROPHILS PERCENT AUTO 55.1 % (42.2-75.2); PLATELET COUNT,PLT 150 10^3/uL (150-450); RED BLOOD CELL COUNT 4.16 10^6/uL (4.6-6.2); WHITE BLOOD CELL COUNT,WBC 9.2 10^3/uL (5.0-10.0)
[2024-03-19 14:05] LABS: LACTIC ACID 1.4 mmol/L (0.4-2.0)
[2024-03-19 14:07] LABS: ALANINE AMINOTRANSFERASE,ALT 28 U/L (16-63); ALBUMIN 2.9 g/dL (3.4-5.0); ALKALINE PHOSPHATASE 79 U/L (46-116); ANION GAP 10.6 mEq/L (7-13); ASPARTATE AMNIOTRANSFERASE,AST 16 U/L (15-37); BILIRUBIN TOTAL 0.5 mg/dL (0.2-1.0); BLOOD UREA NITROGEN,BUN 26 mg/dL (7-18); BUN/CREATININE RATIO 22.8 (No establ ref range); CALCIUM 8.5 mg/dL (8.5-10.1); CARBON DIOXIDE,CO2 26 mmol/L (21-32); CHLORIDE,CL 107 mmol/L (98-107); CREATINE KINASE,CK 82 U/L (39-308); CREATININE 1.14 mg/dL (0.70-1.30); EST CRCL DRUG DOSING (CG) 69.02 mL/min; GLUCOSE RANDOM 91 mg/dL (70-99); POTASSIUM,K 3.6 mmol/L (3.5-5.1); PROTEIN TOTAL,TP 6.9 g/dL (6.4-8.2); SODIUM,NA 140 mmol/L (136-145)
[2024-03-19 14:08] LABS: A/G RATIO 0.73; ESTIMATED GFR 70 mL/min (>=60)
[2024-03-19 14:10] LABS: C-REACTIVE PROTEIN < 0.50 ng/dL (<=0.50)
[2024-03-19] MEDS: Dextrose 5%-0.9% NaCl 1,000 ML IV SCH (14:17)
[2024-03-19] MEDS: Clopidogrel 75 MG Tab PO ONE (14:58)
[2024-03-19] MEDS: Aspirin 81 MG Tab.Chew PO ONE (14:58)
[2024-03-19] MEDS: Enoxaparin 100 MG/1 ML Syringe SUBCUT ONE (15:02)
[2024-03-19 15:16] LABS: B-TYPE NATRIURETIC PEPTIDE,BNP 131 pg/ml (0-100)
[2024-03-19 15:17] LABS: INR 0.9 (0.9-1.2); PROTHROMBIN TIME 9.8 SEC (9.0-12.0); PTT,PARTIAL THROMBOPLSTIN TIME 25.2 SEC (22.0-34.0)
[2024-03-19 16:20] VITALS: BP 130/80; PULSE 61
== END 2024-03-19 16:42 | disposition other institution (70) ==
LOC: DL.ED 13:19
DX: I21.4 Non-ST elevation (NSTEMI) myocardial infarction (principal); I20.0 Unstable angina; I10 Essential (primary) hypertension; E11.9 Type 2 diabetes mellitus without complications; I25.2 Old myocardial infarction; Z95.5 Presence of coronary angioplasty implant and graft; Z79.4 Long term (current) use of insulin; Z79.899 Other long term (current) drug therapy; Z79.82 Long term (current) use of aspirin
CPT/HCPCS: 36415; 71045; 74018; 80053; 82550; 82947; 83605; 83735; 83880; 84484; 85025; 85379; 85610; 85730; 86140; 87804; 93005; 93010; 96360; 96361; 96372; 99285; 99285-25; A9270-GY; J1650; J7042; U0002

== ENCOUNTER 2024-08-21 14:02 | Emergency (ER) | payer MEDICARE, MEDICAID, OTHER ==
[2024-08-21] MEDS: Ondansetron 4 MG Tab.DIS PO ONE (14:27)
[2024-08-21 14:44] LABS: BASOPHILS PERCENT AUTO 0.6 % (0.0-1.0); EOSINOPHILS PERCENT AUTO 0.4 % (1.0-3.0); HEMATOCRIT 42.8 % (40.0-54.0); HEMOGLOBIN 13.9 g/dL (14.0-18.0); LYMPHOCYTES PERCENT AUTO 5.7 % (20.5-50.1); MEAN CORPUSCULAR HEMOGLOBIN 28.5 pg (27.0-34.0); MEAN CORPUSCULAR HGB CONC 32.5 g/dL (33.0-35.0); MEAN CORPUSCULAR VOLUME 87.7 fL (80-100); NEUTROPHILS PERCENT AUTO 92.3 % (42.2-75.2); PLATELET COUNT,PLT 147 10^3/uL (150-450); RED BLOOD CELL COUNT 4.88 10^6/uL (4.6-6.2)
[2024-08-21 15:01] LABS: ALBUMIN 3.1 g/dL (3.4-5.0); ANION GAP 16.8 mEq/L (7-13); BILIRUBIN TOTAL 0.6 mg/dL (0.2-1.0); BUN/CREATININE RATIO 26.5 (No establ ref range); CALCIUM 8.6 mg/dL (8.5-10.1); CREATININE 1.32 mg/dL (0.70-1.30); EST CRCL DRUG DOSING (CG) 61.37 mL/min; POTASSIUM,K 3.8 mmol/L (3.5-5.1); PROTEIN TOTAL,TP 7.5 g/dL (6.4-8.2)
[2024-08-21 15:05] LABS: A/G RATIO 0.7
[2024-08-21 18:41] VITALS: BP 119/64; PULSE 71
== END 2024-08-21 16:42 | disposition home or self-care (01) ==
LOC: DL.ED 14:02
DX: E66.01 Morbid (severe) obesity due to excess calories (principal); Z68.41 Body mass index [BMI] 40.0-44.9, adult; R11.2 Nausea with vomiting, unspecified; E11.9 Type 2 diabetes mellitus without complications; Z79.899 Other long term (current) drug therapy; Z79.4 Long term (current) use of insulin; Z79.82 Long term (current) use of aspirin
CPT/HCPCS: 36415; 71045; 80053; 83690; 85025; 93005; 99284; A9270; 93010

== ENCOUNTER 2025-06-14 14:19 | Inpatient (IN) | payer MEDICARE, MEDICAID ==
[2025-06-14] MEDS ORDERED: Ondansetron 4 MG Tab.DIS PO PRN (16:20)
[2025-06-14] MEDS ORDERED: 50% Dextrose in Water 50 ML Syringe IVPUSH PRN (16:38)
[2025-06-14 16:51] LABS: PLATELET COUNT,PLT 243 10^3/uL (150-450); RED BLOOD CELL COUNT 3.96 10^6/uL (4.6-6.2); WHITE BLOOD CELL COUNT,WBC 11.0 10^3/uL (5.0-10.0)
[2025-06-14 16:54] LABS: BASOPHILS PERCENT AUTO 0.1 % (0.0-1.0); EOSINOPHILS PERCENT AUTO 3.4 % (1.0-3.0); LYMPHOCYTES PERCENT AUTO 26.6 % (20.5-50.1); MONOCYTES PERCENT AUTO 6.7 % (2-8); NEUTROPHILS PERCENT AUTO 63.2 % (42.2-75.2)
[2025-06-14 17:11] LABS: INR 1.0 (0.9-1.2); PTT,PARTIAL THROMBOPLSTIN TIME 24.7 SEC (22.0-34.0)
[2025-06-14 17:12] LABS: A/G RATIO 0.54; ALANINE AMINOTRANSFERASE,ALT 85.0 U/L (16-63); ASPARTATE AMNIOTRANSFERASE,AST 46.0 U/L (15-37); BILIRUBIN TOTAL 0.3 mg/dL (0.2-1.0); BLOOD UREA NITROGEN,BUN 35.0 mg/dL (7-18); CARBON DIOXIDE,CO2 26.0 mmol/L (21-32); CHLORIDE,CL 105.0 mmol/L (98-107); CREATININE 1.32 mg/dL (0.70-1.30); EST CRCL DRUG DOSING (CG) 60.53 mL/min; ESTIMATED GFR 59.0 mL/min (>=60); GLUCOSE RANDOM 166.0 mg/dL (70-99); POTASSIUM,K 4.5 mmol/L (3.5-5.1); PROTEIN TOTAL,TP 8.0 g/dL (6.4-8.2); SODIUM,NA 140.0 mmol/L (136-145)
[2025-06-14 17:33] LABS: SEG NEUTROPHILS PERCENT MAN 59 % (42-75)
[2025-06-14 17:34] LABS: EOSINOPHILS PERCENT MAN 3 % (1-3); LYMPHOCYTES PERCENT MAN 32 % (20-50); MONOCYTES PERCENT MAN 6 % (2-8)
[2025-06-14 17:50] LABS: IRON,FE 58.0 ug/dL (65-175); PERCENT FE SATURATION 19.0 % (20.0-50.0)
[2025-06-14 18:04] LABS: FOLIC ACID 5.9 ng/mL (8.6-58.9)
[2025-06-15 08:46] LABS: BASOPHILS PERCENT AUTO 0.0 % (0.0-1.0); EOSINOPHILS PERCENT AUTO 4.0 % (1.0-3.0); LYMPHOCYTES PERCENT AUTO 34.5 % (20.5-50.1); MONOCYTES PERCENT AUTO 6.8 % (2-8); NEUTROPHILS PERCENT AUTO 54.7 % (42.2-75.2); PLATELET COUNT,PLT 248 10^3/uL (150-450); RED BLOOD CELL COUNT 4.03 10^6/uL (4.6-6.2); WHITE BLOOD CELL COUNT,WBC 9.8 10^3/uL (5.0-10.0)
[2025-06-15 09:06] LABS: ALANINE AMINOTRANSFERASE,ALT 75.0 U/L (16-63); ASPARTATE AMNIOTRANSFERASE,AST 37.0 U/L (15-37); BILIRUBIN TOTAL 0.6 mg/dL (0.2-1.0); BLOOD UREA NITROGEN,BUN 36.0 mg/dL (7-18); CARBON DIOXIDE,CO2 26.0 mmol/L (21-32); CHLORIDE,CL 106.0 mmol/L (98-107); CREATININE 1.15 mg/dL (0.70-1.30); EST CRCL DRUG DOSING (CG) 69.48 mL/min; GLUCOSE RANDOM 127.0 mg/dL (70-99); POTASSIUM,K 4.2 mmol/L (3.5-5.1); PROTEIN TOTAL,TP 8.1 g/dL (6.4-8.2); SODIUM,NA 142.0 mmol/L (136-145)
[2025-06-15 09:09] LABS: A/G RATIO 0.56; ESTIMATED GFR 69.0 mL/min (>=60)
[2025-06-16 06:42] LABS: BASOPHILS PERCENT AUTO 0.1 % (0.0-1.0); EOSINOPHILS PERCENT AUTO 3.9 % (1.0-3.0); LYMPHOCYTES PERCENT AUTO 33.0 % (20.5-50.1); MONOCYTES PERCENT AUTO 9.3 % (2-8); NEUTROPHILS PERCENT AUTO 53.7 % (42.2-75.2); PLATELET COUNT,PLT 233 10^3/uL (150-450); RED BLOOD CELL COUNT 3.79 10^6/uL (4.6-6.2); WHITE BLOOD CELL COUNT,WBC 8.2 10^3/uL (5.0-10.0)
[2025-06-16 07:21] LABS: ALANINE AMINOTRANSFERASE,ALT 62.0 U/L (16-63); ASPARTATE AMNIOTRANSFERASE,AST 30.0 U/L (15-37); BILIRUBIN TOTAL 0.5 mg/dL (0.2-1.0); BLOOD UREA NITROGEN,BUN 42.0 mg/dL (7-18); CARBON DIOXIDE,CO2 27.0 mmol/L (21-32); CHLORIDE,CL 106.0 mmol/L (98-107); CREATININE 1.12 mg/dL (0.70-1.30); EST CRCL DRUG DOSING (CG) 71.34 mL/min; GLUCOSE RANDOM 135.0 mg/dL (70-99); POTASSIUM,K 4.4 mmol/L (3.5-5.1); PROTEIN TOTAL,TP 7.6 g/dL (6.4-8.2); SODIUM,NA 142.0 mmol/L (136-145)
[2025-06-16 07:24] LABS: A/G RATIO 0.55; ESTIMATED GFR 72.0 mL/min (>=60)
[2025-06-16] MEDS: Sodium Chloride 0.9% 10 ML Syringe FLUSH PRN (22:03)
[2025-06-19] MEDS: Sennosides/Docusate Sodium 50-8.6 MG Tab PO PRN (20:51)
[2025-06-20 06:46] LABS: BASOPHILS PERCENT AUTO 0.1 % (0.0-1.0); EOSINOPHILS PERCENT AUTO 4.6 % (1.0-3.0); LYMPHOCYTES PERCENT AUTO 35.2 % (20.5-50.1); MONOCYTES PERCENT AUTO 8.8 % (2-8); NEUTROPHILS PERCENT AUTO 51.3 % (42.2-75.2); PLATELET COUNT,PLT 230 10^3/uL (150-450); RED BLOOD CELL COUNT 3.84 10^6/uL (4.6-6.2); WHITE BLOOD CELL COUNT,WBC 8.6 10^3/uL (5.0-10.0)
[2025-06-20 07:04] LABS: BLOOD UREA NITROGEN,BUN 34.0 mg/dL (7-18); CARBON DIOXIDE,CO2 27.0 mmol/L (21-32); CHLORIDE,CL 103.0 mmol/L (98-107); CREATININE 1.01 mg/dL (0.70-1.30); EST CRCL DRUG DOSING (CG) 79.11 mL/min; ESTIMATED GFR 81.0 mL/min (>=60); GLUCOSE RANDOM 104.0 mg/dL (70-99); POTASSIUM,K 5.4 mmol/L (3.5-5.1); SODIUM,NA 137.0 mmol/L (136-145)
[2025-06-21 07:09] LABS: BLOOD UREA NITROGEN,BUN 39.0 mg/dL (7-18); CARBON DIOXIDE,CO2 31.0 mmol/L (21-32); CHLORIDE,CL 103.0 mmol/L (98-107); CREATININE 1.17 mg/dL (0.70-1.30); EST CRCL DRUG DOSING (CG) 68.29 mL/min; GLUCOSE RANDOM 122.0 mg/dL (70-99); POTASSIUM,K 6.1 mmol/L (3.5-5.1)
[2025-06-21 07:23] LABS: SODIUM,NA 137.0 mmol/L (136-145)
[2025-06-21 07:26] LABS: ESTIMATED GFR 68.0 mL/min (>=60)
[2025-06-21] MEDS: Albuterol 0.083% 2.5 MG/3 ML Neb Soln NEB ONE (09:01)
[2025-06-21] MEDS: Insulin Regular, Human 100 Units/ML 10 ML Vial IV ONE (09:04)
[2025-06-21] MEDS: Calcium Gluconate 10% 1 GM/10 ML SDV IVPUSH ONE (09:15)
[2025-06-21] MEDS: 50% Dextrose in Water 50 ML Syringe IVPUSH ONE (09:16)
[2025-06-23 09:28] LABS: BLOOD UREA NITROGEN,BUN 36.0 mg/dL (7-18); CARBON DIOXIDE,CO2 28.0 mmol/L (21-32); CHLORIDE,CL 103.0 mmol/L (98-107); CREATININE 1.25 mg/dL (0.70-1.30); EST CRCL DRUG DOSING (CG) 63.92 mL/min; GLUCOSE RANDOM 106.0 mg/dL (70-99); POTASSIUM,K 5.4 mmol/L (3.5-5.1); SODIUM,NA 137.0 mmol/L (136-145)
[2025-06-23 09:41] LABS: ESTIMATED GFR 63.0 mL/min (>=60)
[2025-06-23] MEDS: Sodium Polystyrene Sulfonate 15 GM/60 ML Susp 60 ML Bot PO ONE (13:59)
[2025-06-24 06:48] LABS: BASOPHILS PERCENT AUTO 0.1 % (0.0-1.0); EOSINOPHILS PERCENT AUTO 4.5 % (1.0-3.0); LYMPHOCYTES PERCENT AUTO 34.9 % (20.5-50.1); MONOCYTES PERCENT AUTO 8.7 % (2-8); NEUTROPHILS PERCENT AUTO 51.8 % (42.2-75.2); PLATELET COUNT,PLT 234 10^3/uL (150-450); RED BLOOD CELL COUNT 3.79 10^6/uL (4.6-6.2); WHITE BLOOD CELL COUNT,WBC 8.4 10^3/uL (5.0-10.0)
[2025-06-24 07:05] LABS: BLOOD UREA NITROGEN,BUN 41.0 mg/dL (7-18); CARBON DIOXIDE,CO2 27.0 mmol/L (21-32); CHLORIDE,CL 103.0 mmol/L (98-107); CREATININE 1.47 mg/dL (0.70-1.30); EST CRCL DRUG DOSING (CG) 54.35 mL/min; ESTIMATED GFR 52.0 mL/min (>=60); GLUCOSE RANDOM 139.0 mg/dL (70-99); POTASSIUM,K 5.6 mmol/L (3.5-5.1); SODIUM,NA 139.0 mmol/L (136-145)
[2025-06-24] MEDS: Sodium Polystyrene Sulfonate 15 GM/60 ML Susp 60 ML Bot PO ONE (08:26)
[2025-06-25 06:14] LABS: BASOPHILS PERCENT AUTO 0.3 % (0.0-1.0); EOSINOPHILS PERCENT AUTO 3.8 % (1.0-3.0); LYMPHOCYTES PERCENT AUTO 37.3 % (20.5-50.1); MONOCYTES PERCENT AUTO 10.2 % (2-8); NEUTROPHILS PERCENT AUTO 48.4 % (42.2-75.2); PLATELET COUNT,PLT 239 10^3/uL (150-450); RED BLOOD CELL COUNT 3.90 10^6/uL (4.6-6.2); WHITE BLOOD CELL COUNT,WBC 7.9 10^3/uL (5.0-10.0)
[2025-06-25 06:32] LABS: BLOOD UREA NITROGEN,BUN 40.0 mg/dL (7-18); CARBON DIOXIDE,CO2 25.0 mmol/L (21-32); CHLORIDE,CL 104.0 mmol/L (98-107); CREATININE 1.51 mg/dL (0.70-1.30); EST CRCL DRUG DOSING (CG) 52.91 mL/min; GLUCOSE RANDOM 111.0 mg/dL (70-99); POTASSIUM,K 5.2 mmol/L (3.5-5.1); SODIUM,NA 139.0 mmol/L (136-145)
[2025-06-25 06:36] LABS: ESTIMATED GFR 50.0 mL/min (>=60)
[2025-06-25] MEDS: Sodium Polystyrene Sulfonate 15 GM/60 ML Susp 60 ML Bot PO SCH (10:27)
[2025-06-26 06:42] LABS: BLOOD UREA NITROGEN,BUN 37.0 mg/dL (7-18); CARBON DIOXIDE,CO2 25.0 mmol/L (21-32); CHLORIDE,CL 106.0 mmol/L (98-107); CREATININE 1.35 mg/dL (0.70-1.30); EST CRCL DRUG DOSING (CG) 59.19 mL/min; GLUCOSE RANDOM 125.0 mg/dL (70-99); POTASSIUM,K 5.4 mmol/L (3.5-5.1); SODIUM,NA 141.0 mmol/L (136-145)
[2025-06-26 06:43] LABS: ESTIMATED GFR 57.0 mL/min (>=60)
[2025-06-26] MEDS: Sodium Polystyrene Sulfonate 15 GM/60 ML Susp 60 ML Bot RECTAL ONE (09:25)
[2025-06-26 19:39] VITALS: PULSE 64
[2025-06-27 08:48] VITALS: BP 122/67
[2025-06-27 09:23] LABS: BLOOD UREA NITROGEN,BUN 34.0 mg/dL (7-18); CARBON DIOXIDE,CO2 26.0 mmol/L (21-32); CHLORIDE,CL 105.0 mmol/L (98-107); CREATININE 1.19 mg/dL (0.70-1.30); EST CRCL DRUG DOSING (CG) 67.14 mL/min; GLUCOSE RANDOM 157.0 mg/dL (70-99); POTASSIUM,K 4.8 mmol/L (3.5-5.1); SODIUM,NA 140.0 mmol/L (136-145)
[2025-06-27 09:30] LABS: ESTIMATED GFR 67.0 mL/min (>=60)
[2025-06-27] MEDS ORDERED: FLU (Fluad Triv) 25-26 (65UP)/MF59C/PF 45 MCG/0.5 ML Syringe IM ONE (14:30)
== END 2025-06-27 15:15 | disposition home or self-care (01) | DRG 947 ==
LOC: DL.MS 14:19
PROVIDERS: ADMIT Student in an Organized Health Care Education/Training Program; ATTEND Internal Medicine
DX: R53.81 Other malaise (principal); J18.9 Pneumonia, unspecified organism; I13.0 Hypertensive heart and chronic kidney disease with heart failure and stage 1 through stage 4 chronic kidney disease, or unspecified chronic kidney disease; Z68.41 Body mass index [BMI] 40.0-44.9, adult; I25.10 Atherosclerotic heart disease of native coronary artery without angina pectoris; I50.9 Heart failure, unspecified; R56.9 Unspecified convulsions; E11.9 Type 2 diabetes mellitus without complications; H26.9 Unspecified cataract; H54.7 Unspecified visual loss; K21.9 Gastro-esophageal reflux disease without esophagitis; J45.909 Unspecified asthma, uncomplicated; E66.9 Obesity, unspecified; N18.9 Chronic kidney disease, unspecified; E83.42 Hypomagnesemia; D64.9 Anemia, unspecified; E87.5 Hyperkalemia; I25.2 Old myocardial infarction; Z98.890 Other specified postprocedural states; Z87.891 Personal history of nicotine dependence; Z79.82 Long term (current) use of aspirin; Z79.84 Long term (current) use of oral hypoglycemic drugs; Z79.4 Long term (current) use of insulin; Z95.5 Presence of coronary angioplasty implant and graft; Z79.899 Other long term (current) drug therapy
CPT/HCPCS: 36415; 80048; 80053; 82607; 82728; 82746; 82947; 83036; 83540; 83550; 83735; 84100; 84132; 85025; 85610; 85730; 93005; 93010; 97110-GO; 97110-GP; 97161-GP; 97165-GO; 97530-GO; 97530-GP; 99306; 99309; 99316; A9270-GY; J0612; J0696; J1815-GY; J3490